=== PATIENT | female | born 1945 | race Caucasian/White ===

== ENCOUNTER → 2019-11-04 14:51 | Outpatient (CLI) | payer MEDICARE, OTHER, SELFPAY ==
--- NOTE | ~2019-11-04 | MM_ITS ---
EXAMINATION: MM screening fidel RT w yogesh HISTORY: Screening right mammogram, history of left mastectomy TECHNIQUE: Craniocaudal and mediolateral oblique 3-D tomosynthesis images were obtained and synthetic 2-D images were generated. CAD analysis was submitted and interpreted. COMPARISON: 10/15/2018, 10/01/2017, 09/27/2016, 09/24/2015 BREAST PARENCHYMAL COMPOSITION: There are scattered areas of fibroglandular density. FINDINGS: There is no evidence of suspicious mass, calcification, or architectural distortion to sugg est malignancy in either breast. There has been no suspicious interval change. IMPRESSION: 1. No mammographic evidence of malignancy. 2. Recommend routine screening mammography in one year. BI-RADS Category 1: Negative Reviewed, dictated and finalized at location A.
== END ==
PROVIDERS: PCP Family Medicine; Visit Provider Internal Medicine
DX: Z12.31 Encounter for screening mammogram for malignant neoplasm of breast (principal)
CPT/HCPCS: 77063; 77067

== ENCOUNTER 2020-01-20 22:04 | Emergency (ER) | payer MEDICARE, OTHER, SELFPAY ==
[2020-01-20 22:04] VITALS: BP 167/92; PULSE 72; RESP 18; TEMP 36.2; O2SAT 97
--- NOTE | 2020-01-21 00:03 | ED.WOUNDLAC ---
HPI - Wound/Laceration General Chief Complaint: Wound/Laceration Stated Complaint: Finger Lac Time Seen by Provider: 01/20/20 23:58 History of Present Illness HPI narrative: Patient presents with her for finger laceration. She was sewing and using her rotary peel oven tender, to make facemasks. She is already made 700 of them. She cut her index finger of the left hand. There was still bleeding here. Her tetanus shot was in May. She says the pain is 5 out of 10. She is right-handed. She has not been sick recently. Related Data Home Medications Medication Instructions Recorded Confirmed alendronate 70 mg tablet 70 mg PO WEEKLY 10/14/19 aspirin 81 mg tablet,delayed 81 mg PO DAILY 10/14/19 release atorvastatin 20 mg tablet 20 mg PO DAILY 10/14/19 biotin 1 mg capsule 1 mg PO DAILY 10/14/19 calcium carbonate 600 mg (1,500 cap PO 10/14/19 mg)-vitamin D3 500 unit capsule carvedilol 3.125 mg tablet 3.125 mg PO Q12H 10/14/19 cetirizine 10 mg capsule PO 10/14/19 cholecalciferol (vitamin D3) 50 2,000 unit PO DAILY 10/14/19 mcg (2,000 unit) tablet coenzyme [id number] E 100 mg-100 cap PO 10/14/19 unit capsule garlic 1,000 mg capsule 1,000 mg PO DAILY 10/14/19 glucosamine sulfate 500 mg tablet 500 mg PO BID 10/14/19 levothyroxine 75 mcg tablet 75 mcg PO DAILY 10/14/19 multivitamin 1 tablet PO DAILY 10/14/19 omega-3 fatty acids-fish oil 360 1 cap PO DAILY 10/14/19 mg-1,200 mg capsule omeprazole 20 mg capsule,delayed 20 mg PO DAILY 10/14/19 release Allergies Allergy/AdvReac Type Severity Reaction Status Date / Time No Known Allergies Allergy Unverified 01/20/20 23:12 Review of Systems Review of Systems: Narrative: CONSTITUTIONAL: Denies fever, chills, or sweats. EYES: Denies visual changes, redness, or discharge. ENT: Denies rhinorrhea, congestion, sore throat, or otalgia. CARDIOVASCULAR: Denies chest pain, palpitations, or edema. RESPIRATORY: Denies cough or dyspnea. GASTROINTESTINAL: Denies abdominal pain, nausea, vomiting, or diarrhea. GENITOURINARY: Denies dysuria or hematuria. SKIN: Denies rash or itching. MUSCULOSKELETAL: Denies back pain, joint pain, or myalgia. NEUROLOGIC: Denies headache, numbness, or weakness. PSYCHIATRIC: Denies anxiety or depression. All systems reviewed & are unremarkable except as noted in HPI and below PMFSH Past Medical History Medical History Breast cancer Heart disease Stent Osteopenia Family History Family History Sibling Carcinoma of colon Patient's brother is Other Family history of congenital heart disease Family history of malignant neoplasm Social History Social History Smoking status: Never smoker Alcohol intake: never Additional living arrangements comments: Spouse Gender identity (if verbalized by the patient): Female Exam Narrative: Exam Narrative: GENERAL: Well-appearing, well-nourished, and in no acute distress. HEAD: Normocephalic, atraumatic. EYES: PERRLA and EOMI. ENT: Nares clear, no rhinorrhea or epistaxis. Mucous membranes moist. NECK: Supple. CHEST: Clear to auscultation. No respiratory distress. HEART: Regular rate and rhythm. No murmur heard. Normal peripheral pulses. ABDOMEN: Soft, nontender, nondistended, normal active bowel sounds. EXTREMITIES: Normal range of motion. No edema. Laceration on the left index finger. SKIN: Warm, dry, no rash. NEURO: No focal deficits. Alert and oriented x3. PSYCH: Normal mood and affect. Course Vital Signs Vital signs: Vital Signs Temperature 97.1 F L 01/20/20 22:04 Pulse Rate 72 01/20/20 22:04 Respiratory Rate 18 01/20/20 22:04 Blood Pressure 167/92 H 01/20/20 22:04 Pulse Oximetry 97 01/20/20 22:04 Temperature 97.1 F L 01/20/20 22:04 Pulse Rate 72 01/20/20 22
[2020-01-21 01:01] VITALS: BP 158/83; PULSE 73; RESP 16; O2SAT 100
== END 2020-01-21 01:02 | disposition home or self-care (01) ==
PROVIDERS: Emergency Provider Emergency Medicine; PCP Family Medicine
DX: S61.211A Laceration without foreign body of left index finger without damage to nail, initial encounter (principal); Z85.3 Personal history of malignant neoplasm of breast; W26.8XXA Contact with other sharp object(s), not elsewhere classified, initial encounter
CPT/HCPCS: 12001; 99283; A9270

== ENCOUNTER → 2020-04-27 11:34 | Outpatient (CLI) | payer MEDICARE, OTHER, SELFPAY ==
--- NOTE | ~2020-04-27 | US_ITS ---
EXAMINATION: US thyroid DATE: 04/27/2020 11:54 INDICATION: Hypothyroidism. Thyroid nodules. TECHNIQUE: Multiple ultrasound images of the thyroid were obtained. COMPARISON: 12/10/2012 FINDINGS: The right thyroid lobe measures 6.0 x 2.1 x 2.0 cm. The left thyroid lobe measures 3.7 x 1.5 x 1.4 c m. Bilateral thyroid nodules. No significant interval change accounting for differences in technique in a smooth margined peripherally calcified 1.4 cm nodule at the inferior right thyroid lobe with sh adowing posterior to the anterior rim precluding assessment for solid versus cystic composition. Unch anged 1.6 cm wider than tall solid hypoechoic nodule with smooth margins and echogenic foci (TI-RADS 5, highly suspicious , FNA if >=1.0 cm, annual followup is >0.5 cm). There are several additional sub centimeter right thyroid nodules with relatively similar appearance although some appear more anechoi c and are likely cystic. Posterior comet tail artifact is suggested at a few of the echogenic foci wh ich can be seen with inspissated colloid. 7 mm wider than tall solid hypoechoic nodule with smooth ma rgins and without echogenic foci (TI-RADS 4, moderately suspicious , FNA if >=1.5 cm, annual followup is >1 cm). There are 3 anechoic cystic nodules with smooth margins in the left thyroid lobe (TI-RADS 1, benign, no FNA recommended). The largest measuring up to 1.5 cm. IMPRESSION: 1. Multinodular goiter. The largest 1.6 cm TI RADS 5 nodule in the right thyroid meets consensus crit eria for ultrasound-guided biopsy however has not changed in size since 2012 and could consider eithe r ultrasound guided biopsy or continued follow-up. Reviewed, dictated and finalized at location B. IMPRESSION: 1. Multinodular goiter. The largest 1.6 cm TI RADS 5 nodule in the right thyroi d meets consensus criteria for ultrasound-guided biopsy however has not changed in size since 2012 and could consider either ultrasound guided biopsy or valentino nued follow-up.
== END ==
PROVIDERS: PCP Family Medicine; Visit Provider Physician Assistant
DX: E03.9 Hypothyroidism, unspecified (principal); E04.2 Nontoxic multinodular goiter
CPT/HCPCS: 76536

== ENCOUNTER 2020-05-25 12:12 | Outpatient (CLI) | payer MEDICARE, OTHER, SELFPAY ==
--- NOTE | ~2020-05-25 | US_ITS ---
EXAMINATION: US abdomen complete EXAM DATE: 05/25/2020 12:52 INDICATION: Abdominal pain, nausea. TECHNIQUE: Multiple grayscale and Doppler images of the complete abdomen were obtained (by a technolo gist who performed the scan) and subsequently reviewed. There is no prior study for comparison. FINDINGS: The abdominal aorta is normal in caliber. Visualized portion IVC is patent. The pancreatic head a nd body are normal in appearance. The pancreatic tail is not visualized. The liver has normal echogenicity and contour. There are no focal liver lesions identified. There is no evidence of intrahepatic biliary duct dilation. Portal venous flow was seen in the hepatopedal , normal direction and has normal Doppler waveform. Common bile duct measures 3-4 mm, which is normal. The gallbladder wall is normal in thickness, with expected amount of distention. No sonographic evidence of pericholecystic fluid. There is no cholel ithiases. Technologist performing exam reports patient did not demonstrate sonographic Friend's sign. Please note that this sign is less reliable in patients who have received pain medication. Right kidney: There is normal contour and echogenicity. It measures 10.8 x 4.3 x 4.8 centimeters. There are no focal renal lesions identified. There is no hydronephrosis. Left kidney: There is normal contour and echogenicity. It measures 11.2 x 4.4 x 4.1 centimeters. T here are no focal renal lesions identified. There is no hydronephrosis. The spleen measures 8.6 centimeters and is morphologically normal. IMPRESSION: 1. Unremarkable complete abdominal ultrasound exam. Reviewed, dictated and finalized at location A.
[2020-05-25 13:15] LABS: Basophils Percent Auto 0.2 % (0.2-1.2); Eosinophils Absolute Auto 0.1 K/mm3 (0-0.3); Eosinophils Percent Auto 0.8 % (0-4.4); Hematocrit 42.4 % (37.0-47.0); Hemoglobin 14.3 g/dL (12.0-15.0); Immature Granulocyte Absolute 0.02 K/mm3 (0.00-0.031); Immature Granulocyte Percent A 0.2 % (0-0.5); Lymphocytes Absolute Auto 2.51 K/mm3 (0.9-3.2); Lymphocytes Percent Auto 24.6 % (18.3-44.2); Mean Corpuscular HGB Conc 33.7 g/dl (32-36); Mean Corpuscular Hemoglobin 30.5 pg (26-34); Mean Corpuscular Volume 90.4 fl (80-100); Mean Platelet Volume 9.4 fl (7.4-10.4); Monocytes Absolute Auto 0.5 K/mm3 (0.1-0.6); Monocytes Percent Auto 4.8 % (2.6-8.5); Neutrophils Absolute Auto 7.1 K/mm3 (1.3-6.7); Neutrophils Percent Auto 69.4 % (45.5-73.1); Platelet Count Result 269 k/mm3 (150-375); Red Blood Count 4.69 M/mm3 (4.2-5.4); Red Cell Distribution Width 12.2 % (11.5-14.5); White Blood Count 10.2 K/mm3 (4.5-10.0)
[2020-05-25 13:25] LABS: Alanine Aminotransferase 38 U/L (4-35); Albumin Level 4.3 g/dL (3.5-5.1); Alkaline Phosphatase 83 U/L (38-126); Amylase 48 U/L (30-110); Anion Gap 7 mmol/L (8-16); Aspartate Amino Transferase 33 U/L (14-36); Bilirubin,Total 0.7 mg/dL (0.2-1.3); Blood Urea Nitrogen 13 mg/dL (7-17); Calcium 9.5 mg/dL (8.4-10.2); Carbon Dioxide 30 mmol/L (22-30); Chloride 100 mmol/L (98-107); Estimated Glomerular Filt Rate > 60; Glucose 113 mg/dL (65-105); Lipase 38 U/L (23-300); Potassium 5.4 mmol/L (3.4-5.0); Sodium 137 mmol/L (137-145)
== END 2020-05-25 12:13 | disposition home or self-care (01) ==
PROVIDERS: PCP Family Medicine; Visit Provider Family Medicine
DX: R10.13 Epigastric pain (principal); R19.7 Diarrhea, unspecified; R11.0 Nausea; R10.11 Right upper quadrant pain
CPT/HCPCS: 36415; 76700; 80053; 82150; 83690; 85025

== ENCOUNTER → 2020-08-19 09:36 | Outpatient (CLI) | payer MEDICARE, OTHER, SELFPAY ==
--- NOTE | ~2020-08-19 | MR_ITS ---
EXAMINATION: MR ankle LT wo con DATE: 08/19/2020 10:32 INDICATION: Left ankle and hindfoot pain. TECHNIQUE: Magnetic resonance imaging (MRI) of the left ankle was performed without intravenous contr ast. Sequences included sagittal, coronal, and axial proton-density weighted fast spin echo without a nd with fat saturation. COMPARISON: None. FINDINGS: Medial ankle ligaments: Deep and superficial deltoid ligaments as well as the spring ligament are normal. Lateral ankle ligaments: The anterior and posterior inferior tibiofibular ligaments are normal. The anterior talofibular, calc aneofibular and posterior talofibular ligaments are normal. Tendons: Achilles tendon is normal. The peroneus longus and brevis tendons are normal. The tibialis anterior a nd extensor hallucis longus and extensor digitorum longus tendons are normal. The tibialis posterior, flexor digitorum longus and flexor hallucis longus tendons are normal. Plantar fascia: Tiny erosion along a moderate-sized plantar calcaneal spur. There is mild thickening and mild increas ed signal of the proximal plantar aponeurosis along with mild edema in the underlying plantar fat pad consistent with mild acute on chronic plantar fasciitis. Bones/other: Bone alignment is normal. Mild polyarticular osteoarthritis at the tibiotalar joint and at several mack ints the midfoot. There is mild subarticular edema and cystic change at the medial cuneiform on its a rticulation with the navicula as well as at the lateral cuneiform along its articulation with the cub oid. Marrow signal is otherwise normal with no fracture, osteonecrosis or pathologic marrow replacing process. Nonspecific edema in the cephalad aspect of the uterus fat pad. Minimal edema without loss of normal fat signal at the sinus Tarsi. The cervical and interosseous talocalcaneal ligaments are no rmal. Fluid: No joint effusions, tenosynovitis or other abnormal fluid collections. IMPRESSION: 1. 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 2. Mild acute on chronic plantar fasciitis. Reviewed, dictated and finalized at location A. B[employer]ING [employer]W [employer]IEF IMPRESSION: 1. 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 2. Mild acute on chronic plantar fasciitis.
== END ==
PROVIDERS: Visit Provider Podiatrist Foot & Ankle Surgery
DX: S93.622A Sprain of tarsometatarsal ligament of left foot, initial encounter (principal); X58.XXXA Exposure to other specified factors, initial encounter; M19.072 Primary osteoarthritis, left ankle and foot
CPT/HCPCS: 73721

== ENCOUNTER → 2020-12-30 14:32 | Outpatient (CLI) | payer MEDICARE, OTHER, SELFPAY ==
--- NOTE | ~2020-12-30 | MM_ITS ---
EXAMINATION: MM screening fidel RT w yogesh HISTORY: Screening. Left mastectomy. TECHNIQUE: Craniocaudal and mediolateral oblique 3-D tomosynthesis images were obtained and synthetic 2-D images were generated. CAD analysis was submitted and interpreted. COMPARISON: Comparison to multiple prior studies sequentially, with oldest reviewed study dated 09/24. BREAST PARENCHYMAL COMPOSITION: There are scattered areas of fibroglandular density. FINDINGS: Developing asymmetry in the upper central aspect of the right breast. There are no suspicio us calcifications or architectural distortion. IMPRESSION: 1. Developing right breast asymmetry. 2. Additional mammographic views and possible breast ultrasound are recommended. BI-RADS Category 0: Incomplete: Needs additional imaging evaluation. Reviewed, dictated and finalized at location A. IMPRESSION: 1. Developing right breast asymmetry. 2. Additional mammographic views and possible breast ultrasound are recommended . BI-RADS Category 0: Incomplete: Needs additional imaging evaluation.
== END ==
PROVIDERS: PCP Family Medicine; Visit Provider Family Medicine
DX: Z12.31 Encounter for screening mammogram for malignant neoplasm of breast (principal); R92.8 Other abnormal and inconclusive findings on diagnostic imaging of breast
CPT/HCPCS: 77063; 77067

== ENCOUNTER → 2021-01-25 08:30 | Outpatient (CLI) | payer MEDICARE, OTHER, SELFPAY ==
--- NOTE | ~2021-01-25 | MMUS_ITS ---
EXAMINATION: MM diagnostic mammo unilat RT, US breast RT limited HISTORY: Follow-up right breast asymmetry TECHNIQUE: Additional 3-D tomosynthesis images of the right breast were performed and synthetic 2-D i mages were generated. CAD analysis was submitted and interpreted. High resolution Limited right breas t ultrasound was performed. COMPARISON: 12/30/2020 BREAST PARENCHYMAL COMPOSITION: Breast composed of scattered areas of fibroglandular density. FINDINGS: MAMMOGRAPHIC FINDINGS: There are no suspicious masses, calcifications or architectural distortion in the right breast to sug gest malignancy. ULTRASOUND: Limited right breast ultrasound: Normal heterogeneous echotexture without focal solid or cystic mass. IMPRESSION: 1. No mammographic or sonographic evidence for malignancy in the right breast. 2. Routine yearly screening mammogram and regular clinical breast examination are recommended. BI-RADS Category 1: Negative Reviewed, dictated and finalized at location A. IMPRESSION: 1. No mammographic or sonographic evidence for malignancy in the right breast. 2. Routine yearly screening mammogram and regular clinical breast examination a re recommended. BI-RADS Category 1: Negative
== END ==
PROVIDERS: PCP Family Medicine; Visit Provider Physician Assistant
DX: R92.8 Other abnormal and inconclusive findings on diagnostic imaging of breast (principal)
CPT/HCPCS: 76642; 77065

== ENCOUNTER → 2021-03-01 17:59 | Outpatient (CLI) | payer MEDICARE, OTHER, SELFPAY ==
--- NOTE | ~2021-03-01 | DEXA_ITS ---
Bone Density Report Name: Jennifer Rivera Age: 75 Sex: Female Ethnicity: White Date of : 1945 Indication: osteopenia; monitoring treatment; height loss; inflammatory bowel disease; hysterectomy; Referring Provider: Yoly Triplett Study: Bone densitometry was performed. Exam Date: March 01, 2021 Accession number: [id number] Bone Density: Region BMD T-score Z-score Classification AP Spine (L1-L4) 0.941 -1.0 1.5 Normal Femoral Neck (Left) 0.689 -1.4 0.7 Osteopenia Total Hip (Left) 0.840 -0.8 1.0 Normal Femoral Neck (Right) 0.725 -1.1 1.0 Osteopenia Total Hip (Right) 0.896 -0.4 1.5 Normal Total Hip Mean 0.868 -0.6 1.3 Normal World Health Organization criteria for BMD impression classify patients as: Normal (T-score at or above -1.0), Osteopenia (T-score between -1.0 and -2.5), or Osteoporosis (T-score at or below -2.5). 10-year Fracture Risk: FRAX not reported because: Treated for osteoporosis Previous Exams: Region Exam Age BMD T-score BMD Change BMD Change Date g/cm2 vs Baseline vs Previous AP Spine(L1-L4) 03/01/2021 75 0.941 -1.0 0.093* 0.083* 07/17/2017 71 0.858 -1.7 0.010 -0.001 09/22/2014 68 0.859 -1.7 0.011 -0.004 09/20/2012 66 0.863 -1.7 0.015 0.015 09/20/2012 66 0.848 -1.8 Total Hip(Left) 03/01/2021 75 0.840 -0.8 -0.004 0.001 07/17/2017 71 0.839 -0.8 -0.005 0.019 09/22/2014 68 0.820 -1.0 -0.024 -0.024 09/20/2012 66 0.845 -0.8 Total Hip(Right) 03/01/2021 75 0.896 -0.4 0.012 0.047* 07/17/2017 71 0.849 -0.8 -0.035* -0.003 09/22/2014 68 0.852 -0.7 -0.033* -0.033* 09/20/2012 66 0.884 -0.5 *Denotes significance at 95% confidence level, LSC for AP Spine = 0.022 g/cm2, LSC for Total Hip = 0.027 g/cm2 Clinical Information Provided by Patient: Is being treated for osteoporosis Has used the following medications: Fosamax (i.e. alendronate), Vitamin D, Calcium Has the following medical conditions: Inflammatory bowel diseases, Hysterectomy Patient maximum height was 64 Menopause Age: 47 No regular weight bearing exercise Onset of menses at age 13 Number of children 3 Impression: The patient has low bone mass, based on the Left Femoral Neck T-score. No significant bone loss was observed.
== END ==
PROVIDERS: PCP Family Medicine; Visit Provider Physician Assistant
DX: Z78.0 Asymptomatic menopausal state (principal); M85.852 Other specified disorders of bone density and structure, left thigh; M85.851 Other specified disorders of bone density and structure, right thigh
CPT/HCPCS: 77080

== ENCOUNTER 2021-07-18 08:55 | Outpatient (CLI) | payer MEDICARE, OTHER, SELFPAY ==
--- NOTE | 2021-07-18 09:01 | ECG_ITS ---
Measurements Intervals [place] Rate: 56 P: 29 MS: 148 QRS: -13 QRSD: 140 T: -31 QT: 419 QTc: 407 Interpretive Statements SINUS BRADYCARDIA RIGHT BUNDLE BRANCH BLOCK BASELINE ARTIFACT- I, II, III, AVR, AVF ABNORMAL ECG Electronically Signed On 07-18-2021 9:27:16 MILLING MACHINE SET UP OPERATOR by Black Gamez D.O.
== END 2021-07-18 08:56 | disposition home or self-care (01) ==
LOC: ANHSURGERY 08:57
PROVIDERS: PCP Family Medicine; Visit Provider Orthopaedic Surgery
DX: E78.2 Mixed hyperlipidemia (principal); Z01.818 Encounter for other preprocedural examination; I45.10 Unspecified right bundle-branch block
CPT/HCPCS: 93005

== ENCOUNTER 2021-07-25 00:42 | Day surgery (SDC) | payer MEDICARE, OTHER, SELFPAY ==
[2021-07-11 15:30] VITALS: BMI 25.7
--- NOTE | 2021-07-11 15:41 | PC.NURSE ---
Report to the Outpatient Waiting Room, entrance under the green pavilion located off [facility], at time __10:30am on date __07/25/21 . OR Time: ___12:30pm . - You and your visitor will be asked a series of questions to screen for COVID 19 for your protection. - A mask is required within the hospital. - Only one visitor is allowed at this time. Patient visitors will be guided where to wait when not with patient. Preoperative COVID Testing Requirements: No COVID Test needed if: (proof is required; if not received patient will have Rapid Test prior to entry) - Patient has received COVID Vaccine at least 14 days prior to procedure date or - Patient has positive COVID test result within last 90 days of surgery date. COVID Test needed if above criteria is not met If not COVID vaccinated a COVID test must be conducted within 72 hours of surgery and patient is asked to isolate self from time of testing until procedure. You will go to the [facility] Testing Site for your COVID testing. The [facility] site is located at the corner of [address] [facility]. You will only be called if COVID results are positive and your surgeon may reschedule your elective surgery date. Patients may have clear liquids (water, carbonated beverages, clear teas, apple juice) until 3 hours prior to surgery with a maximum of 20 ounces. - No food from midnight until time of surgery - Infants may have breast milk until 4 hours before surgery, infant formula 6 hours prior to surgery. - Children will be allowed to drink immediately following surgery. If applicable, please bring a bottle or sippy cup to assist with drinking. Juice, water, soda, and popsicles are readily available. For infants on formula, please bring formula the day of surgery. Pacifiers are allowed. Take the following medications with a SIP of water the morning of surgery: carvedilol, _levothyroxine Medications to discontinue per physician all vitamins/supplements 3 days pre-op Date to take last dose____07/21/21 Please no make-up, nail cymro, hairspray, perfume, deodorant, or body powder the day of surgery. No jewelry (including any body piercings) or valuables the day of surgery, leave them at home. Please take a shower or bath the night before, or the morning of, surgery with an antibacterial soap. Wear comfortable, loose fitting clothing. Children are encouraged to wear pajamas. - Jewelry must be removed prior to entering the operating room. Rings and piercings that are not removed may be cut off. - The hospital will not accept responsibility for valuables. - Please leave all valuables, including medications, at home the day of surgery. If you are going home after surgery, a licensed commercial relief driver must drive you home. - NO public transportation without another adult. - We recommend that an adult stay with you for 24 hours following discharge. - We also recommend that you do not drive, make important decision, drink alcoholic beverages, or take any drugs that were not prescribed by your health care provider for at least 24 hours after your discharge time. For Pediatric surgeries, we recommend two adults accompany the child home (only one inside the building at this time). Follow any additional instructions given to you from your surgeon. Telephone instructions given to patient and asked if any additional questions and then verbalized understanding. Patient advised to call surgeon office or pre surgery nurse liaison [phone] if any additional questions.
[2021-07-25] VITALS (8 sets, daily range): BP systolic 140–152; BP diastolic 66–74; PULSE 50–77; RESP 15–21; TEMP 36.1–36.2; O2SAT 92–100
--- NOTE | ~2021-07-25 | XR_ITS ---
EXAMINATION: XR hand RT min 3V DATE: 07/25/2021 14:46 INDICATION: Right thumb arthroplasty. Postop. TECHNIQUE: 3 views of right hand were obtained. COMPARISON: Right hand radiographs 05/24/2021 FINDINGS: Bone alignment is normal. No fracture. Trapezium is absent. There is moderate osteoarthriti s of second carpometacarpal joint and mild osteoarthritis of first and second carpophalangeal joints. There is osteoarthritis of many of the interphalangeal joints, moderate at second and third distal i nterphalangeal joints. There is gas in the soft tissues, consistent with recent surgery. IMPRESSION: 1. Trapezium resection. 2. Polyarticular osteoarthritis. Reviewed, dictated and finalized at location A. [facility]
[2021-07-25] MEDS: LACTATED RINGERS 1,000 ML 30 ML IV CONT ×2 (11:10→14:22)
[2021-07-25] MEDS: ACETAMINOPHEN 500 MG TABLET 1000 MG PO (11:40)
[2021-07-25] MEDS: KETOROLAC 15 MG/ML VIAL (*BKC) IV PUSH (11:46)
--- NOTE | 2021-07-25 11:59 | WPDHPUPDATE1 ---
History and Physical Update Update Date/Time: 07/25/21 11:59 History and Physical has been reviewed, including an updated exam of the patient. There are NO changes in the patient's condition. Risks, benefits, and alternatives have been discussed and questions answered. Patient agrees to proceed with procedure.
--- NOTE | 2021-07-25 12:13 | WPDANESEPPF ---
Anes - Initial Pre Proc Eval Procedure: Operation Date: 07/25/21 12:30 Proposed Procedures p Right Thumb Carpal Metacarpal Arthroplasty - Mika Ruiz MD Date/Time: 07/25/21 12:13 Surgeon: Mika Ruiz MD Pre Op Diagnosis: right thumb CMC arthritis Patient Data Age: 75 Gender: F Height: 1.63 m Weight: 68 kg Allergies Allergy/AdvReac Type Severity Reaction Status Date / Time No Known Allergies Allergy Unverified 07/25/21 10:44 Home Medications Medication Instructions Recorded Confirmed Type aspirin 81 mg tablet,delayed 81 mg PO DAILY 10/14/19 07/25/21 History release biotin 1 mg capsule 1 mg PO DAILY 10/14/19 07/25/21 History calcium carbonate 600 mg-vitamin 1 cap PO BID 10/14/19 07/25/21 History D3 12.5 mcg (500 unit) capsule cetirizine 10 mg capsule 10 mg PO DAILY 10/14/19 07/25/21 History coenzyme [id number] E 100 mg-100 1 cap PO DAILY 10/14/19 07/25/21 History unit capsule garlic 1,000 mg capsule 1,000 mg PO DAILY 10/14/19 07/25/21 History glucosamine sulfate 500 mg tablet 500 mg PO DAILY 10/14/19 07/25/21 History multivitamin 1 tablet PO DAILY 10/14/19 07/25/21 History omega-3 fatty acids-fish oil 360 1 cap PO BID 10/14/19 07/25/21 History mg-1,200 mg capsule omeprazole 20 mg capsule,delayed 20 mg PO DAILY #90 cap 02/09/20 07/25/21 Rx release lactobacillus combination no.9 4 4,000 mmu cells PO DAILY 03/25/20 07/25/21 History billion cell capsule carvedilol 3.125 mg tablet 3.125 mg PO Q12H #180 tablet 08/30/20 07/25/21 Rx alendronate 70 mg tablet 70 mg PO WEEKLY #14 tablet 01/03/21 07/25/21 Rx atorvastatin 20 mg tablet 20 mg PO DAILY #90 tablet 05/30/21 07/25/21 Rx cholecalciferol (vitamin D3) 25 mcg PO DAILY 07/11/21 07/25/21 History levothyroxine 50 mcg PO QAM 07/11/21 07/25/21 History Patient hx anesthesia problems: none Family hx anesthesia problems: none Results Review: All pre-operative results and documents have been reviewed as part of the pre-operative evaluation. [facility] Past Medical History Medical History Arthritis of carpometacarpal (CMC) joint of right thumb BMI 28.0-28.9,adult Breast cancer CAD (coronary artery disease) Coronary stent patent GERD (gastroesophageal reflux disease) Heart disease Stent Hypothyroidism (acquired) Mixed hyperlipidemia Osteopenia Vitamin D deficiency Surgical History Surgical History H/O hand surgery H/O left mastectomy History of breast augmentation Family History Family History Sibling Carcinoma of colon Patient's brother is Other Family history of congenital heart disease Family history of malignant neoplasm Social History Social History Social History: Smoking status: Never smoker Second hand tobacco smoke exposure: No Alcohol intake: never Substance use: never Substance use type: does not use Living arrangements: with family Additional living arrangements comments: HUSB Gender identity (if verbalized by the patient): Female Spiritual care concerns: No Anes - Eval Final PreProcedure Day of Procedure 07/25/21 12:13 Patient weight: overweight Heart: regular rate and rhythm Lungs: clear to auscultation and normal air movement Airway: Mallampati scale class II Neurological: alert and oriented Last oral intake: >/= 8 hours ASA classification: III Emergent: no Anesthetic plan: proceed Anesthesia type and monitoring: general LMA and standard monitoring Results Review: All pre-operative results and documents have been reviewed as part of the pre-operative evaluation. Informed Consent: The patient's anesthetic plan and its attendant risks and benefits were discussed with the patient/family/POA. Questions were solicited and answers provide
--- NOTE | 2021-07-25 12:35 | WPDANESPNB ---
Anes - Peripheral Nerve Block Date/Time: 07/25/21 12:35 I have discussed with the patient/family/POA the placement of a peripheral nerve block for post-operative pain management, including associated risks, benefits, complications, and side effects. Alternative methods of post-operative analgesia were detailed. Questions were solicited and answers provided to the satisfaction of the patient/family/POA. Time-Out: A pre-procedural Time-Out was completed immediately before starting the procedure and confirmed: Patient Identification, Site, Procedure, Patient Position and the Availability of Requisite Equipment. Clinical Indications: Acute post-operative pain management requested by the operative surgeon. Nerve Block Insertion Note Anes-nerve block: supraclavicular right Patient position: supine Skin prep: chlorhexidine Needle: 22 gauge, stimulating, insulated echogenic needle. Needle length: 50 mm Technique: ultrasound Injectate: bupivacaine 0.5% with epi 5 mcg/ml (30cc- no epi) Observations: tolerated well Complications: none Procedure start time:: 1230 Procedure end time:: 1234
[2021-07-25] MEDS: ceFAZolin 2 GM/D5W 50 ML 2 GM/50 ML BAG IVPB (12:44)
--- NOTE | 2021-07-25 14:32 | W.PM.PROC2 ---
Procedure Note - Detailed Date of Procedure 07/25/21 Pre-op Diagnosis right thumb CMC arthritis Post-op Diagnosis same Procedure Performed Right thumb CMC suspension arthroplasty Surgeon Mika Ruiz MD Senior [employer] Billing Specialist Indu Velásquez Anesthesia general and regional Description of Procedure The patient was identified proper site identified. In the preop holding area the anesthesia team performed a right upper extremity block. She was then taken to the operating room transferred to the OR table placing her supine taking care to pad the torso and extremities. After general anesthetic induction and intubation, a nonsterile tourniquet was placed high on the right arm. The right upper extremity was prepped and draped in usual sterile fashion. Extremity was exsanguinated and tourniquet was inflated to 200 mmHg remaining up for approximately 69 minutes. A longitudinal incision was made over the FCR tendon curving radially at the base of the thenar musculature. Subcutaneous tissue bluntly dissected protecting neurovascular structures. A slip of the APL which inserted into the thenar musculature was released and marked for later repair. The thenar musculature was elevated up off of the carpus and the trapezium identified. While protecting the FCR, a trapeziectomy was performed. The a ulnar-sided distally-based 8 cm slip of FCR was then developed hand used to create a sling weaving the tendon slip between the FCR tendon and the APL tendon securing it to itself with 3-0 Ethibond suture. The EPL tendon was advanced on itself and also secured with 3-0 Ethibond suture seating the sling in the trapeziectomy site. This allowed the thumb to sit very nicely in a position of function. The EPB tendon was then reefed also with 3-0 Ethibond taking up the slack in that structure. The wound was irrigated with sterile antibiotic solution. The wrist capsule and thenar musculature were tacked back down with 4-0 Monocryl. The slip of the EPL was reattached to the thenar musculature with 3-0 Ethibond. Skin reapproximated with 4-0 Monocryl interrupted and 4-0 Prolene running subcuticular stitch. Steri-Strips were applied. Sterile dressings applied and the tourniquet was released. Well-padded thumb spica splint was fashioned. The patient tolerated procedure well . She was awakened extubated and taken to recovery area in stable condition. There were no known intraoperative complications. Estimated blood loss was negligible. Perioperative antibiotics were administered. Estimated Blood Loss -5.0 Tourniquet Time 69 Drains No Packing No Pathology none sent Complications No immediate complications Condition stable Disposition PACU
== END 2021-07-25 16:35 | disposition home or self-care (01) ==
PROVIDERS: PCP Family Medicine; Visit Provider Orthopaedic Surgery
PROC: (CPT 25447; principal; 2021-07-25 12:30)
DX: M18.11 Unilateral primary osteoarthritis of first carpometacarpal joint, right hand (principal); G89.18 Other acute postprocedural pain; Z79.82 Long term (current) use of aspirin; E03.9 Hypothyroidism, unspecified; I25.10 Atherosclerotic heart disease of native coronary artery without angina pectoris; Z95.5 Presence of coronary angioplasty implant and graft; K21.9 Gastro-esophageal reflux disease without esophagitis; E55.9 Vitamin D deficiency, unspecified; E78.2 Mixed hyperlipidemia
CPT/HCPCS: 25447; 64415; 73130; A9270; J0690; J1100; J1885; J2370; J2405; J2704; J7120

== ENCOUNTER 2021-09-07 13:30 | Outpatient (RCR) | payer MEDICARE, OTHER, SELFPAY ==
--- NOTE | 2021-08-15 11:32 | OTOPEVAL ---
OCCUPATIONAL THERAPY INITIAL EVALUATION REPORT 08/15/21 Thank you for referring Jennifer Rivera to [facility].? The patient is scheduled to be seen for therapy? 1x/week for 4 weeks. Please review, sign, date and return this plan of care DUSTIN. I agree with and certify that the following plan of care is medically necessary. Referring Physician Date Referring Provider: Mika Ruiz MD *OT Outpatient Evaluation Start: 08/15/21 10:26 Outpatient Past Medical History Past Medical History Source of Past Medical History Recalled from Previous Visit, Confirmed with Patient/Family Neurological History Hx Neurological Disorders No Significant History Cardiovascular History Hx Coronary Stent Yes: 2015 1 STENT, ANGIOPLASTY . DR PAGE Hx Hypercholesterolemia Yes Hx Hypertension Yes Hx Myocardial Infarction Yes: 2015 Respiratory History Hx Respiratory Disorders No Significant History Gastrointestinal History Hx Appendectomy Yes Hx Gastroesophageal Reflux Disease Yes Genitourinary History Hx Genitourinary Disorders No Significant History Musculoskeletal History Hx Arthritis Yes: RT THUMB CMC ARTHRITIS Hx Orthopedic Surgery Yes: LT THUMB SURGERY Hematological History Hx Hematological Disorders No Significant History Endocrine History Hx Hypothyroidism Yes HEENT History Hx Cataracts Yes: BILAT IMPLANTS Integumentary History Hx Skin Disorders No Significant History Reproductive History Hx Other Reproductive Disorders Yes: BREAST IMPLANT LT BREAST Psychosocial History Hx Psychiatric Disorders No Significant History Pain History History of Any Previous or Ongoing No Significant History Instance of Pain Anesthesia History Hx Post-Op Nausea/Vomiting Yes: HX N/V Hx Other Anesthesia Reactions Yes: HX HYPOTENSION AFTER ANESTHESIA Other History Hx Cancer Yes: BREAST CA Hx Chemotherapy Yes Hx Implanted Device Yes: LT BREAST IMPLANT Evaluation Information Problem Diagnosis Right thumb CMC arthroplasty Onset 07/25/21 Subjective Information Patient reports some residual Query Text:As Reported By Patient/ soreness, numbness, and pain Family in the right hand/thumb. She has returned to being independent with ADLs (only wearing sweat pants right now due to being unable to do zippers and buttons). at home helping with cooking, cleaning, and laundry at this
--- NOTE | 2021-09-07 14:40 | OTOPEVAL ---
OCCUPATIONAL THERAPY RE-EVALUATION AND DISCHARGE SUMMARY 09/07/21 OT re-evaluation completed today, 6 weeks following CMC arthroplasty. Patient has returned to functional ROM of the right wrist and thumb. Today she was instructed in balance weigher/pinch strengthening and is independent with all materials. No further skilled OT indicated at this time. Thank you for referring Jennifer Rivera to [facility].? Please review, sign, date and return this plan of care DUSTIN. I agree with and certify that the following plan of care is medically necessary. Referring Physician Date Referring Provider: Mika Ruiz MD *OT Outpatient Re-Evaluation Start: 08/15/21 10:26 Problem Diagnosis Right thumb CMC arthroplasty Onset 07/25/21 Subjective Information Patient states she has Query Text:As Reported By Patient/ returned to near normal Family functioning with her right hand. She is now able to do buttons and zippers, cook, clean, and do laundry. She reports it's difficult to open jars. Pain Assessment Timing of Pain Assessment Timing of Pain Assessment Pre-Treatment Self Report Self Report Pain Level 0 Pain Score Pain Score 0: Self Report Upper Extremity Range of Motion Wrist Range of Motion Right Wrist Flexion - Active 55 Wrist Extension - Active 55 Wrist Radial Deviation - Active 10 Wrist Ulnar Deviation - Active 30 Wrist Range of Motion Comments Wrist flexion improved from 55 * Wrist extension improved 55* RD improved from 10* UD remained WNL at 30* Thumb Range of Motion Right Thumb MCP Flexion - Active 40 Thumb IP Flexion - Active 60 Thumb CMC Radial Abduction - Active 45 Thumb CMC Palmar Abduction - Active 45 Opposition to 2nd Digit Tip 0 Opposition to 3rd Digit Tip 0 Opposition to 4th Digit Tip 0 Opposition to 5th Digit Tip 0 Opposition to 5th Digit Base 0 Thumb Range of Motion Comments Thumb active ROM returned to functional limits. Hand Ship Officer/Pinch Strength Assessment Hand Left Ship Officer Strength (lbs) 65 Lateral Pinch Strength (lbs) 10.66 Palmar Pinch Strength (lbs) 11 Tip Pinch Strength (lbs) 11.66 Right Ship Officer Strength (lbs) 37.33 Lateral Pinch Strength (lbs) 2.33 Palmar Pinch Strength (lbs) 3.66 Tip Pinch Strength (lbs) 2 Upper Extremity Exercise Wrist Exercise Right Other Wrist Exercises With 1# free weight, 3x10: - wrist flex - wrist ext
== END 2021-09-08 08:22 | disposition home or self-care (01) ==
LOC: ANHOT 13:30
PROVIDERS: PCP Family Medicine; Visit Provider Orthopaedic Surgery
DX: Z47.1 Aftercare following joint replacement surgery (principal); M18.11 Unilateral primary osteoarthritis of first carpometacarpal joint, right hand; Z98.890 Other specified postprocedural states
CPT/HCPCS: 97018; 97110; 97165

== ENCOUNTER → 2022-02-13 12:15 | Outpatient (CLI) | payer MEDICARE, OTHER, SELFPAY ==
--- NOTE | ~2022-02-13 | MM_ITS ---
EXAMINATION: MM screening fidel RT w yogesh HISTORY: Screening mammogram; status post left mastectomy in 1993 for breast cancer TECHNIQUE: Craniocaudal and mediolateral oblique 3-D tomosynthesis images were obtained and synthetic 2-D images were generated. CAD analysis was submitted and interpreted. COMPARISON: 01/25/2021 diagnostic right mammogram and limited right breast ultrasound 12/29/2020, 11/04/2019, 10/15/2018 right screening mammogram examinations BREAST PARENCHYMAL COMPOSITION: There are scattered areas of fibroglandular density. FINDINGS: There is no evidence of suspicious mass, calcification, or architectural distortion to sugg est malignancy in either breast. There has been no suspicious interval change. IMPRESSION: 1. No mammographic evidence of malignancy. 2. Recommend routine screening mammography in one year. BI-RADS Category 1: Negative Reviewed, dictated and finalized at location A.
== END ==
PROVIDERS: PCP Family Medicine; Visit Provider Nurse Practitioner Gerontology
DX: Z12.31 Encounter for screening mammogram for malignant neoplasm of breast (principal)
CPT/HCPCS: 77063; 77067

== ENCOUNTER 2023-04-16 14:03 | Inpatient (IN) | payer MEDICARE, OTHER, SELFPAY ==
[2023-04-16] VITALS (13 sets, daily range): BP systolic 115–175; BP diastolic 49–67; PULSE 35–62; RESP 16–20; TEMP 36.6–36.7; O2SAT 94–100; BMI 26.6
--- NOTE | ~2023-04-16 | XR_ITS ---
EXAMINATION: XR chest 1V portable INDICATION: New heart block TECHNIQUE: Portable AP chest at 1515 hours COMPARISON: 12/05/2015 FINDINGS: There are minimal interstitial opacities of the lung bases. No pleural effusion or pneumoth orax. The cardiomediastinal silhouette is stable. IMPRESSION: 1. Possible mild pulmonary edema. Reviewed, dictated and finalized at location A.
--- NOTE | ~2023-04-16 | XR_ITS ---
XR chest 1V portable 04/18/2023 13:48 Indication: Pacemaker insertion Procedure: AP portable chest Comparison: Comparison to multiple prior studies sequentially, with oldest reviewed study dated 09/23. Findings: Heart size normal. There are coarse bilateral interstitial infiltrates, likely chronic inte rstitial fibrosis. No focal air space disease, pulmonary edema, pleural effusion or suspected pneumot horax. Impression: 1: Coarse chronic bilateral interstitial infiltrates, likely pulmonary fibrosis. Mild edema less favo red. Reviewed, dictated and finalized at location B. Impression: 1: Coarse chronic bilateral interstitial infiltrates, likely pulmonary fibrosis . Mild edema less favored.
--- NOTE | ~2023-04-16 | XR_ITS ---
EXAMINATION: XR chest 2V DATE: 04/19/2023 08:17 INDICATION: Pacemaker insertion TECHNIQUE: AP and lateral views of the chest are obtained. COMPARISON: 04/18/2023 FINDINGS: Interstitial opacities of the lungs are again noted and unchanged. No pleural effusion or p neumothorax. The cardiomediastinal silhouette is normal. There is moderate thoracic spondylosis. A du al-lead cardiac pacemaker of the left chest wall ends with leads in expected locations. IMPRESSION: 1. Interstitial opacities of the lungs which could reflect pulmonary edema versus chronic interstitia l lung disease. Reviewed, dictated and finalized at location A. IMPRESSION: 1. Interstitial opacities of the lungs which could reflect pulmonary edema vers us chronic interstitial lung disease.
--- NOTE | 2023-04-16 14:12 | ECG_ITS ---
Measurements Intervals [place] Rate: 34 P: 53 IN: 141 QRS: -11 QRSD: 137 T: -14 QT: 518 QTc: 395 Interpretive Statements SINUS BRADYCARDIA WITH WHAT APPEARS TO BE LIKELY NONCONDUCTED PACS IN A BIGEMINAL PATTERN POSSIBLE LEFT ATRIAL ENLARGEMENT [-0.1mV P WAVE IN V1/V2] RIGHT BUNDLE BRANCH BLOCK [120+ ms QRS DURATION, UPRIGHT V1, 40+ ms S IN I/aVL/V4/V5/V6] COMPARED TO ECG 07/18/2021 09:11:40 NO SIGNIFICANT CHANGES Electronically Signed On 04-17-2023 11:11:47 CDT by Blayne Osorio M.D.
--- NOTE | 2023-04-16 15:19 | ED.ARRPALP ---
HPI - Arrhythmia/Palpitations General Chief Complaint: Arrhythmia/Palpitations Stated Complaint: heart problems Time Seen by Provider: 04/16/23 15:13 History of Present Illness HPI narrative: Patient is 77-year-old female with history of CAD status post PCI x1 here with lightheadedness and bradycardia. Patient states that for the last 1-2 weeks she has been having episodes of dizziness and lightheadedness. She notes that it feels like she may pass out. It has been intermittent in nature. She notes that over the last few days it seems to have worsened. On Sunday she did have about 24 hours of GI symptoms including diarrhea and vomiting. This seems to have worsened her symptoms. She did have an episode of shortness of breath when the symptoms began but otherwise she has had no CP shortness of breath or chest pain throughout this 2 week period. No current nausea or vomiting. No fever or chills. Today she went into her primary care doctor's office where she was noted to have a heart rate in the 30s and sent into the emergency department for evaluation. Patient does note that they have had low blood pressures throughout the weekend at home and her HR read as low on her monitor. Dr. 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 Related Data Home Medications Medication Instructions Recorded Confirmed aspirin 81 mg tablet,delayed 81 mg PO DAILY 10/14/19 04/16/23 release (Adult Low Dose Aspirin) biotin 1 mg capsule 1 mg PO DAILY 10/14/19 04/16/23 calcium carbonate 600 mg-vitamin 1 cap PO DAILY 10/14/19 04/16/23 D3 12.5 mcg (500 unit) capsule (Calcium 600 with Vitamin D3) cetirizine 10 mg capsule 10 mg PO DAILY 10/14/19 04/16/23 garlic 1,000 mg capsule 1,000 mg PO DAILY 10/14/19 04/16/23 multivitamin 2 tablet PO DAILY 10/14/19 04/16/23 lactobacillus combination no.9 4 4,000 mmu cells PO DAILY 03/25/20 04/16/23 billion cell capsule (Adult 50 Plus Probiotic) cholecalciferol (vitamin D3) 25 25 mcg PO DAILY 07/11/21 04/16/23 mcg (1,000 unit) capsule ascorbic acid 100 mg-elderberry 1 tablet PO DAILY 04/16/23 04/16/23 fruit 50 mg chewable tablet (Airborne (elderberry)) atorvastatin 20 mg tablet 20 mg PO QPM 04/16/23 04/16/23 coQ10 (ubiquinol) 200 mg capsule 400 mg PO DAILY 04/16/23 04/16/23 levothyroxine 50 mcg tablet See Rx Instructions .Route .COMPLEX 04/16/23 04/16/23 omega 1-aor-sss-fish oil 100 3 cap PO DAILY 04/16/23 04/16/23 mg-160 mg-1,000 mg capsule (Fish Oil) Allergies Allergy/AdvReac Type Severity Reaction Status Date / Time No Known Allergies Allergy Verified 04/16/23 12:58 Review of Systems Review of Systems: CONSTITUTIONAL: Denies fever, chills, or sweats. EYES: Denies visual changes, redness, or discharge. ENT: Denies rhinorrhea, congestion, sore throat, or otalgia. CARDIOVASCULAR: Denies chest pain or palpitations, Having light headedness. RESPIRATORY: Denies cough or dyspnea. GASTROINTESTINAL: Denies abdominal pain, nausea, vomiting, or diarrhea. GENITOURINARY: Denies dysuria or hematuria. SKIN: Denies rash or itching. MUSCULOSKELETAL: Denies back pain, joint pain, or myalgia. NEUROLOGIC: Denies headache, numbness, or weakness. [facility] Past Medical History Medical History (Updated 04/17/23 @ 10:40 by Anita Jimenez MD) BMI 28.0-28.9,adult Breast cancer Left breast CAD (coronary artery disease) STEMI November 2015 with normal echocardiogram at that time Gastritis GERD (gastroesophageal reflux disease) Hiatal hernia Hypothyroidism (acquired) Mixed hyperlipidemia Orthostasis Osteopenia Sinus bradycardia Vitamin D deficiency Surgical History Surgical History (Updated 04/17/23 @ 00:25 by Maggy Jeff DO) Arthritis of carpometacarpal (CMC) joint of right thumb Right thumb CMC arthroplasty July 25, 2021 H/O hand surgery H/O left mastectomy History of arthroplasty of finger of right hand (06/2021) Thumb Hi
[2023-04-16 15:21] LABS: Basophils Percent Auto 0.5 % (0.2-1.2); Eosinophils Absolute Auto 0.4 K/mm3 (0-0.3); Eosinophils Percent Auto 4.9 % (0-4.4); Hematocrit 44.1 % (37.0-47.0); Immature Granulocyte Absolute 0.02 K/mm3 (0.00-0.031); Immature Granulocyte Percent A 0.2 % (0-0.5); Lymphocytes Absolute Auto 3.43 K/mm3 (0.9-3.2); Lymphocytes Percent Auto 42.8 % (18.3-44.2); Mean Corpuscular HGB Conc 31.7 g/dl (32-36); Mean Corpuscular Hemoglobin 29.8 pg (26-34); Mean Corpuscular Volume 93.8 fl (80-100); Mean Platelet Volume 10.1 fl (7.4-10.4); Monocytes Absolute Auto 0.5 K/mm3 (0.1-0.6); Monocytes Percent Auto 5.9 % (2.6-8.5); Neutrophils Absolute Auto 3.7 K/mm3 (1.3-6.7); Neutrophils Percent Auto 45.7 % (45.5-73.1); Platelet Count Result 223 k/mm3 (150-375); Red Cell Distribution Width 12.8 % (11.5-14.5)
[2023-04-16 15:30] LABS: Alanine Aminotransferase 34 U/L (6-35); Albumin Level 4.7 g/dL (3.5-5.1); Alkaline Phosphatase 79 U/L (38-126); Anion Gap 8 mmol/L (8-16); Aspartate Amino Transferase 36 U/L (14-36); Bilirubin,Total 0.6 mg/dL (0.2-1.3); Blood Urea Nitrogen 15 mg/dL (7-17); Calcium 9.4 mg/dL (8.4-10.2); Carbon Dioxide 28 mmol/L (22-30); Chloride 103 mmol/L (98-107); Estimated CRCL calculation 44 ml/min; Estimated Glomerular Filt Rate > 60; Glucose 91 mg/dL (65-110); Lipase 58 U/L (23-300); Potassium 4.5 mmol/L (3.4-5.0); Sodium 139 mmol/L (137-145)
[2023-04-16 15:32] LABS: INR 0.9; Prothrombin Time 12.8 Seconds (11.1-14.7)
[2023-04-16 15:33] LABS: Partial Thromboplastin Time 25.2 SECONDS (22.3-36.8)
[2023-04-16 15:41] LABS: Troponin I < 0.012 ng/mL (0.000-0.034)
[2023-04-16 17:18] LABS: Magnesium 1.9 mg/dL (1.6-2.3)
[2023-04-16] MEDS: DOPamine 400 MG/D5W 250 ML 400 MG/250 ML BAG 7.13 MG IV CONT (17:33)
[2023-04-16 18:57] LABS: Troponin I < 0.012 ng/mL (0.000-0.034)
--- NOTE | 2023-04-16 20:45 | ADMGEN ---
This patient, Jennifer Rivera, was admitted to Intensive Care Unit-1 at 2037. Patient/family oriented to hospital policies and general routines including ID bracelet, bed and alarms, visiting hours, pain management, procedures, bathroom and other care routines, personal items, smoking policy, room service/diet, and visiting hours. Information on how to activate the Rapid Response Team has been discussed. Patient/Family are encouraged to report perceived risks to care and to ask questions if they do not understand what they are told or what they should do.
--- NOTE | 2023-04-16 20:49 | ADMGEN ---
2039 This patient, Jennifer Rivera, was admitted to Intensive Care Unit-1. Patient/family oriented to hospital policies and general routines including ID bracelet, bed and alarms, visiting hours, pain management, procedures, bathroom and other care routines, personal items, smoking policy, room service/diet, and visiting hours. Information on how to activate the Rapid Response Team has been discussed. Patient/Family are encouraged to report perceived risks to care and to ask questions if they do not understand what they are told or what they should do.
[2023-04-16] MEDS: DOPamine 400 MG/D5W 250 ML 400 MG/250 ML BAG 6.6 MG IV CONT (21:00)
--- NOTE | 2023-04-16 21:02 | PM.IMHP ---
H&P: HPI History of Present Illness Date/Time: 04/16/23 21:02 Chief Complaint: Low heart rate Narrative: 77-year-old female with a past medical history of coronary artery disease status post LAD stent 2016 and hypothyroidism who presented to the ER from primary care physician's office due to symptomatic bradycardia. The patient reports that for the last week she has been having intermittent episodes of feeling lightheaded. The 1st time happened when she went to get out of the car and walk. She was so lightheaded that she thought she may pass out. She also initially felt short of breath with this 1st incidence. She denies any true dizziness. She sat down for a few minutes and her symptoms improved. She does not remember having a recurrence of the symptoms that day. However she has had some mild recurrent episodes throughout. Then 3 days ago she had 24 hours of GI symptoms including diarrhea and vomiting. She did notice more episodes of lightheadedness after this. Since that time she has had good appetite and good fluid intake. She reports that she may feel little bit more tired than baseline but not markedly so. She denies any associated chest pain. She has not had a recurrence of the shortness of breath beyond her 1st day of symptoms. She has not noticed any palpitations. She has not had any recent changes in her cardiac medications and is only on low-dose Coreg 3.125 mg p.o. b.i.d. which she has been on for quite some time. She has been checking her blood pressures at home with her wrist blood pressure cuff. She notes that her blood pressures had been lower than normal with her systolic pressures in the 90-100 range. She reports that her heart rate has been reading low on her blood pressure monitor for several days but she did think much of this. Given her symptoms she had an outpatient appointment with her primary care physician who performed an EKG that demonstrated Mobitz type 2 and she was sent to the ER for evaluation. EKG in the ER demonstrated rate of 30 and appear to be consistent with sinus bradycardia. Patient was started dopamine infusion due to symptomatic bradycardia and admitted to the ICU. Her TSH in the ER was normal. Review of Systems Review of Systems: 12 systems were reviewed with pertinent positives and negatives per HPI. Except as documented in the HPI, all other systems were reviewed and are negative. She denies orthopnea, paroxysmal nocturnal dyspnea or lower extremity swelling. [facility] Past Medical History Medical History (Updated 04/17/23 @ 00:28 by Maggy Jeff DO) BMI 28.0-28.9,adult Breast cancer Left breast CAD (coronary artery disease) STEMI November 2015 with normal echocardiogram at that time Gastritis GERD (gastroesophageal reflux disease) Hiatal hernia Hypothyroidism (acquired) Mixed hyperlipidemia Osteopenia Vitamin D deficiency Surgical History Surgical History (Updated 04/17/23 @ 00:25 by Maggy Jeff DO) Arthritis of carpometacarpal (CMC) joint of right thumb Right thumb CMC arthroplasty July 25, 2021 H/O hand surgery H/O left mastectomy History of arthroplasty of finger of right hand (06/2021) Thumb History of breast augmentation With subsequent removal of the left breast implant 2018 after became deflated Presence of stent in LAD coronary artery (11/2015) Status post cataract extraction of both eyes with insertion of intraocular lens Family History Family History (Updated 04/17/23 @ 00:18 by Maggy Jeff DO) Sibling Carcinoma of colon Patient's brother is Sibling Sudden After a flight from [place]. PE versus [place] Social History Social History (Updated 04/17/23 @ 00:27 by Maggy Jeff DO) Social History: Patient reports that she has been since 1965. Her and her had 3 sons who are all alive and well. 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 After she completed that mack
[2023-04-16 23:16] LABS: Troponin I < 0.012 ng/mL (0.000-0.034)
[2023-04-17] VITALS (31 sets, daily range): BP systolic 85–132; BP diastolic 41–76; PULSE 34–73; RESP 12–25; TEMP 36.5–36.8; O2SAT 91–100
[2023-04-17] MEDS: PANTOPRAZOLE 40 MG TABLET PO (08:26)
[2023-04-17] MEDS: ASPIRIN 81 MG ENTERIC TABLET PO (08:26)
[2023-04-17] MEDS: OMEGA 3 POLYUNSAT FATTY ACIDS 1 GM CAP 3 GM PO (08:26)
[2023-04-17] MEDS: LORATADINE 10 MG TABLET PO (08:27)
--- NOTE | 2023-04-17 08:29 | PM.IMPN ---
Progress Note: A&P Assessment and Plan (1) Symptomatic bradycardia: Code(s): R00.1 - Bradycardia, unspecified Status: Acute Assessment and Plan: Patient presents to the ED with lightheadedness and found to have symptomatic bradycardia. HR into the 30's. She was on Coreg but this has been stopped. EKG showing sinus bradycardia with rate of 34 and Rt BBB. She has a biphasic T wave in Lead II but no obvious AVB. Dopamine started. HR improving. Cardiology consulted. Mildly hypoxic when sleeping - consider sleep apnea. Check apnea link. Check orthostatic vital signs. (2) Heart block AV second degree: Code(s): I44.1 - Atrioventricular block, second degree Status: Acute Assessment and Plan: Possible AVB? As above (3) Hypothyroidism (acquired): Code(s): E03.9 - Hypothyroidism, unspecified Status: Acute Assessment and Plan: TSH is normal. Contiue levothyroxine. (4) CAD (coronary artery disease): Code(s): I25.10 - Atherosclerotic heart disease of [place] coronary artery without angina pectoris Status: Acute Assessment and Plan: Patient has a hx of CAD with stent placement to the LAD in 2016. Continue ASA and Lipitor. (5) Mixed hyperlipidemia: Code(s): E78.2 - Mixed hyperlipidemia Status: Acute Assessment and Plan: LFTs normal. Continue Lipitor and fish oil. Plan DVT Prophylaxis - SCDs Code status - full Subjective Date/time seen: 04/17/23 08:29 Interval history: 77yo female with CAD, hypothyroidism and HLD here for bradycardia. She slept poorly. She has been feeling lightheaded and fatigue over the past week. No recent medication changes. No recent supplements. She did notice that her symptoms are worse with standing. No CP or SOB. History of coronary disease. No recent ischemic evaluation. Exam Narrative: AF 98.0 107/67 61 12 91% RA Gen - NARD; she felt lightheaded when sitting up in bed Chest - bibasilar inspiratory crackles CV - RRR S1/S2. HR low 60 range. 2/6 systolic murmur Rt USB. Tele showing sinus bradycardia but no obvious AVB Abd - Soft, NT/ND, Positive BS Ext - No pedal edema Psych - Nml mood and affect Skin - Warm and dry Objective Data Vital Signs Vital Signs: Vital Signs - 24 hr 04/16/23 15:01 04/16/23 15:10 04/16/23 15:35 Temperature 97.9 F Pulse Rate 35 L 40 L 54 L Respiratory Rate 18 16 Blood Pressure 175/59 H 157/61 H Pulse Oximetry 100 97 Oxygen Delivery Room Air Room Air 04/16/23 15:30 04/16/23 17:33 04/16/23 16:01 Temperature Pulse Rate 40 L 46 L 59 L Respiratory Rate 18 17 Blood Pressure 138/59 L 133/49 L 133/64 Pulse Oximetry 100 100 Oxygen Delivery 04/16/23 16:31 04/16/23 18:01 04/16/23 19:13 Temperature Pulse Rate 39 L 55 L 38 L Respiratory Rate 19 20 Blood Pressure 142/67 H 123/61 Pulse Oximetry 98 95 Oxygen Delivery 04/16/23 19:14 04/16/23 20:30 04/16/23 22:00 Temperature 97.8 F Pulse Rate 62 53 L 40 L Respiratory Rate 19 20 Blood Pressure 118/55 L 115/61 Pulse Oximetry 95 94 Oxygen Delivery 04/16/23 22:00 04/17/23 00:00 04/17/23 00:00 Temperature 98.0 F 98 F Pulse Rate 40 L 38 L 38 L Respiratory Rate 18 16 Blood Pressure 115/66 100/49 L Pulse Oximetry 94 96 Oxygen Delivery 04/16/23 21:00 04/17/23 00:00 04/17/23 00:30 Temperature Pulse Rate 40 L 38 L 39 L Respiratory Rate Blood Pressure 128/60 100/49 L Pulse Oximetry Oxygen Delivery 04/17/23 02:00 04/17/23 02:00 04/17/23 02:00 Temperature Pulse Rate 60 67 67 Respiratory Rate 18 Blood Pressure 115/62 115/62 Pulse Oximetry 93 Oxygen Delivery 04/17/23 05:22 04/17/23 04:00 04/17/23 04:00 Temperature 98.0 F Pulse Rate 58 L 64 64 Respiratory Rate 17 Blood Pressure 114/64 Pulse Oximetry 91 Oxygen Delivery 04/17/23 05:38 04/17/23 06:00 04/17/23 06:00 Temperature Pu
[2023-04-17] MEDS: CHOLECALCIFEROL 1,000 UNITS TABLET 1000 UNITS PO (08:38)
--- NOTE | 2023-04-17 08:45 | WPDCNINT ---
Assessment and Plan Assessment and plan (1) Symptomatic bradycardia: Code(s): R00.1 - Bradycardia, unspecified Status: Acute Assessment and Plan: Patient presented on 04/16/2023 with lightheadedness and shortness of breath. She visited her primary care doctor and her heart rate was in the 30s, patient was sent to the ER for further the workup. Patient does take Coreg 3.125 mg p.o. b.i.d. which she has been taking for a while. -according the records patient did have Mobitz type 2 block on her EKG at her PCP's office -will wean dopamine and monitor heart rate and blood pressures -cardiology has been consulted, awaiting recommendations (2) Hypothyroidism (acquired): Code(s): E03.9 - Hypothyroidism, unspecified Status: Acute Assessment and Plan: Continue levothyroxine (3) CAD (coronary artery disease): Code(s): I25.10 - Atherosclerotic heart disease of [place] coronary artery without angina pectoris Status: Acute Assessment and Plan: History of LAD stent and 2016, -continue aspirin and atorvastatin (4) Mixed hyperlipidemia: Code(s): E78.2 - Mixed hyperlipidemia Status: Acute Assessment and Plan: Continue statin as above Plan DVT prophylaxis: SCDs Stress ulcer prophylaxis: Not indicated Nutrition: NPO for now Code Status: Full code Critical Care Time Spent: 47 minutes Due to a high probability of clinically significant, life threatening deterioration, the patient required my highest level of preparedness to intervene emergently and I personally spent this critical care time directly and personally managing the patient. This critical care time included obtaining a history; examining the patient; pulse oximetry; ordering and review of studies; arranging urgent treatment with development of a management plan; evaluation of patient's response to treatment; frequent reassessment; and discussions with other providers. It was exclusive of separately billable procedures and treating other patients and teaching time. Please see Assessment and Plan section and the rest of the note for further information on patient assessment and treatment This dictation may have been done utilizing a voice recognition system. Attempts have been made to correct errors. However, there may be uncorrected grammatical, spelling, and recognitions errors present. Chemical Equipment Controller Consult Note Consult date: 04/17/23 Reason for consult: Symptomatic Bradyarrhythmia HPI: Jennifer Rivera is a 77 year old female with past medical history of coronary artery disease status post LAD stent in 2016, hypothyroidism, GERD, hyperlipidemia, vitamin-D deficiency, history of left breast cancer status post left mastectomy presented the ER from her primary care doctor's office on 04/16/2023 due to symptomatic bradycardia. According the records patient been having lightheadedness intermittently for approximately 1 week, she felt as though she would pass out. Patient also complained of shortness of breath during the episodes of lightheadedness. She denied any chest pain, nausea, vomiting, fevers, chills. On the day of admission patient went to her primary care doctor's office and was noted to have a heart rate in the 30s and was sent to the ER for further evaluation. Patient does take low-dose Coreg 3.125 mg p.o. b.i.d. which she has been on for quite some time. She has noted her blood pressures to be a is lower with systolics in the 90s to 100 range. She also noted that heart rate on the blood pressure monitor was low which she did not think much of it. EKG was consistent with sinus bradycardia, patient was started on dopamine infusion and admitted to the ICU for further management. Patient seen and examined this morning, remains on dopamine 2.5 mcg/kg/min. Heart rates have been in the 50s to 60s range. Hemodynamically stable, on room air with good O2 sats, adequate urine output, afebrile. Patient denies any chest p
--- NOTE | 2023-04-17 09:14 | PM.CNCAR ---
Assessment and Plan Assessment and plan (1) Sinus bradycardia: Code(s): R00.1 - Bradycardia, unspecified Status: Acute Assessment and Plan: Patient presents with sinus bradycardia. She does not have any AV block but she does have a right bundle-branch block. EKG suggests that she is actually having frequent nonconducted APCs and atrial bigeminy, resulting in bradycardia. Seems to have resolved overnight on dopamine. On a very tiny dose of carvedilol which has been held, last dose being yesterday morning. Unclear how much of her symptoms are due to bradycardia verses low blood pressures/orthostasis. --discontinue carvedilol --dopamine on hold --follow heart rate over the next 24 hours --no plans for pacemaker implant today. Will follow and see if pacemaker is indicated. Counseled patient and . --Echo (2) Orthostasis: Code(s): I95.1 - Orthostatic hypotension Status: Acute Assessment and Plan: Has had some low blood pressures and documented orthostasis this morning which may be contributing to her symptoms of lightheadedness. --resume diet --normal saline 1 L (3) CAD (coronary artery disease): Code(s): I25.10 - Atherosclerotic heart disease of [place] coronary artery without angina pectoris Status: Acute Assessment and Plan: History of Left anterior descending stent, stable, asymptomatic. --continue secondary prevention with aspirin and statin therapy. History of Present Illness History of Present Illness Consult date/time: 04/17/23 09:14 Reason For Visit: Bradycardia Narrative: Jennifer Rivera is a 77-year-old female whom we were asked to see at the request of Dr. Karla fritz for advice and opinion regarding her bradycardia, in consultation. She follows with Dr. Ashton for her history of CAD. She had ACS and Left anterior descending stent November 2015. She was last seen by Dr. Ashton on 02/08/2023 doing well. The patient presented to her PCP Marguerite TATE yesterday complaining of episodes of dizziness and lightheadedness for 1 week. The 1st occurred about a week ago when she was getting out of a car to go shopping and she had a set and rest; this was associated with SOB. She has had other intermittent episodes of lightheadedness primarily when sitting up or standing up which resolved after several seconds. No other shortness of breath and no chest discomfort. Previously she had no exertional intolerance, able to go up and downstairs a set of with no problems. She had nausea and vomiting 3 days ago, which resolved and she has been eating and drinking well. BP has been low. Her pulse was 56. Her EKG was interpreted as second-degree AV block by her PCP, heart rate 41 (EKG on my review shows sinus bradycardia rate 41, RBBB, probably some nonconducted APCs but not second-degree AV block), and she was referred to the emergency room. There her EKG showed sinus rhythm with a heart rate of 34 and probably nonconducted APCs in a pattern of bigeminy. (EKG personally reviewed) she was started on dopamine last night because of heart rate 30s times this morning her heart rate is in the 60s on dopamine 1.5 mics. In dopamine has been held now. She was noted to be orthostatic with a systolic blood pressure of 120 supine and 85 standing this morning. Right-handed, no history of clavicular fracture. Review of Systems Constitutional: Constitutional: Denies fever(s) Eyes: Eyes: Reports no additional eye complaints ENT: Denies epistaxis Cardiovascular: Cardiovascular: Denies chest pain, Denies pedal edema, Reports lightheadedness and Reports dyspnea (One episode of shortness of breath) Respiratory: Respiratory: Denies chest congestion, Reports dyspnea (1 episode) and Denies dyspnea on exertion (Previously had good exertional tolerance) Gastrointestinal: Gastrointestinal: Denies abdominal pain, Denies hematochezia and Reports vomiting Comments: Nausea vomiti
--- NOTE | 2023-04-17 09:42 | ECHO_ITS ---
Patient Info Name: Jennifer Rivera Age: 77 years : 1945 Gender: Female Ht: 64 in Wt: 155 lbs BSA: 1.80 m2 HR: 48 bpm BP: 109 / 62 mmHg Heart Rhythm: Sinus Rhythm, Bradycardia Technical Quality: Fair Exam Date: 04/17/2023 3:28 PM Exam Location: [facility] Pulmonary Exam Room: ICU1 Patient Status: Inpatient Admit Date: 04/16/2023 Staff Ordering Physician: Viridiana Mckeon MD Hearing Aid Consultant: Genet Avalos RDCS Attending Provider: Guido Velez MD Referring Physician: Linda LING; Exam Type: CA echo dop color flow w con Study Info Indications - NEW AFIB Complete two-dimensional, color flow and Doppler transthoracic echocardiogram is performed with contrast to opacify the left ventricle and to improve the deliniation of the left ventricle endocardial borders. Contrast/Agitated Saline Contrast/Ag. Saline: Definity Amount: 2.00 ml Administered By: Genet Avalos [facility] Existing IV Access: Yes IV Access Condition: patent with no signs of infiltration Summary 1. Normal left ventricular size and thickness with good contractility of all segments. Ejection fraction 55-60%. Grade 1 diastolic dysfunction is present. 2. Left atrial chamber dimension is moderately enlarged. 3. Aortic valve sclerosis with no stenosis. Trace aortic insufficiency. 4. There is mild tricuspid valve regurgitation. 5. Mild pulmonary hypertension, estimated pulmonary arterial systolic pressure is 42 mmHg. 6. Sinus rhythm and sinus bradycardia. Left Ventricle Left ventricular chamber dimension is normal. Left ventricular systolic function is normal, estimated at 55-60%. There is no increased left ventricular wall thickness. Left ventricular septal wall motion is normal. The left ventricular diastolic function is grade I diastolic dysfunction. Right Ventricle Right ventricular chamber dimension is normal. Right ventricular systolic function is normal. Left Atria Left atrial chamber dimension is moderately enlarged. Right Atria Right atrial chamber dimension is normal. Aortic Valve The aortic valve is trileaflet. There is mild aortic valve sclerosis. There is no aortic valve stenosis. There is trace aortic valve regurgitation. Pulmonic Valve The pulmonic valve is normal. There is no pulmonic valve stenosis. There is trace pulmonic regurgitation. Mitral Valve The mitral valve has normal leaflets. There is no mitral valve stenosis. There is trace mitral valve regurgitation. The mitral valve annulus is moderately calcified. Tricuspid Valve The tricuspid valve leaflets are normal. There is no significant tricuspid valve stenosis. There is mild tricuspid valve regurgitation. Mild pulmonary hypertension, estimated pulmonary arterial systolic pressure is 42 mmHg. Pericardium/Pleural The pericardium appears normal. There is no pericardial effusion. Inferior Vena Cava Normal inferior vena cava with >50% collapse upon inspiration consistent with Empty right atrial pressure, 10 mmHg. Aorta The aortic root size at the sinus of Valsalva is normal. The prox ascending aorta size is normal. Left Ventricular Outflow Tract Name Value Normal LVOT 2D LVOT Diameter 2.00 cm LVOT Doppler
[2023-04-17] MEDS: SODIUM CHLORIDE 0.9% IV 1,000 ML 100 ML IV CONT (10:20)
[2023-04-17] MEDS: PERFLUTREN LIPID MICROSPHERES 1.5 ML VIAL DILUTED TO 10 ML TOTAL VOLUME IV PUSH (16:00)
--- NOTE | 2023-04-17 16:21 | IVDEFINITY ---
Prior to administration of IV Definity the patient was educated on the risks and benefits of the imaging enhancing agent including potential adverse side effects. The patient verbalized understanding. Allergies were verified. No exclusion criteria were identified and at least one of the following inclusion criteria were met: 1) physician request, 2) patient technically difficult to image (per the [place] [employer]ocardi[employer] guidelines of two or more segments not discernable within the apical view), or 3) questionable left ventricular function. ?
[2023-04-17] MEDS: ATORVASTATIN 20 MG TABLET PO (16:59)
[2023-04-18] VITALS (18 sets, daily range): BP systolic 86–128; BP diastolic 34–71; PULSE 39–79; RESP 14–22; TEMP 36.4–36.9; O2SAT 90–99
--- NOTE | 2023-04-18 | ECHOL_ITS ---
Patient Info Name: Jenniefr Rivera Age: 77 years : 1945 Gender: Female Ht: 64 in Wt: 156 lbs BSA: 1.80 m2 HR: 75 bpm BP: 107 / 71 mmHg Heart Rhythm: Sinus Rhythm Technical Quality: Fair Exam Date: 04/18/2023 3:00 PM [facility]: ICU1 Patient Status: Inpatient Admit Date: 04/16/2023 Staff Ordering Physician: Viridiana Mckeon MD Flask Pusher: Genet Avalos RDCS Attending Provider: Guido Velez MD Referring Physician: Linda LING; Exam Type: CA echo limited Study Info Indications - CHEST PAIN S/P PACER INSERTION R/O PERICARDIAL EFFUSION Limited two-dimensional transthoracic echocardiogram is performed. Summary 1. Normal left ventricular size and thickness with good contractility of all segments. Ejection fraction is 60-65%. 2. Pacemaker seen in the right ventricle, appears to be in the appropriate apical position. 3. No pericardial effusion. 4. Somewhat technically difficult study is the patient was imaged supine due to her recent procedure. Left Ventricle Left ventricular chamber dimension is normal. Left ventricular systolic function is normal, estimated at 60-65%. There is no increased left ventricular wall thickness. Left ventricular septal wall motion is normal. The left ventricular diastolic function is indeterminate. Right Ventricle Right ventricular chamber dimension is normal. Right ventricular systolic function is normal. Linear artifact in right ventricle suggestive of catheter(s), pacemaker lead(s), or ICD lead(s). Left Atria Left atrial chamber dimension is normal. Right Atria Right atrial chamber dimension is normal. Aortic Valve The aortic valve is trileaflet. There is no aortic valve sclerosis. There is no aortic valve stenosis. There is no aortic valve regurgitation. Pulmonic Valve The pulmonic valve is normal. There is no pulmonic valve stenosis. There is no pulmonic regurgitation. Mitral Valve The mitral valve has normal leaflets. There is no mitral valve stenosis. There is no mitral valve regurgitation. Tricuspid Valve The tricuspid valve leaflets are normal. There is no significant tricuspid valve stenosis. There is no tricuspid valve regurgitation. No pulmonary hypertension, estimated pulmonary arterial systolic pressure is Empty. Pericardium/Pleural The pericardium appears normal. There is no pericardial effusion. Inferior Vena Cava Normal inferior vena cava with >50% collapse upon inspiration consistent with Empty right atrial pressure, Empty. Aorta The aortic root size at the sinus of Valsalva is normal. The prox ascending aorta size is normal. Report Signatures
[2023-04-18] MEDS: DOPamine 400 MG/D5W 250 ML 400 MG/250 ML BAG 17.16 MG IV CONT (00:38)
[2023-04-18 07:56] LABS: Basophils Percent Auto 0.4 % (0.2-1.2); Eosinophils Absolute Auto 0.5 K/mm3 (0-0.3); Eosinophils Percent Auto 6.8 % (0-4.4); Hematocrit 47.1 % (37.0-47.0); Hemoglobin 15.7 g/dL (12.0-15.0); Immature Granulocyte Absolute 0.01 K/mm3 (0.00-0.031); Immature Granulocyte Percent A 0.1 % (0-0.5); Lymphocytes Absolute Auto 2.68 K/mm3 (0.9-3.2); Lymphocytes Percent Auto 35.1 % (18.3-44.2); Mean Corpuscular HGB Conc 33.3 g/dl (32-36); Mean Corpuscular Volume 90.1 fl (80-100); Mean Platelet Volume 9.4 fl (7.4-10.4); Monocytes Absolute Auto 0.5 K/mm3 (0.1-0.6); Monocytes Percent Auto 6.8 % (2.6-8.5); Neutrophils Absolute Auto 3.9 K/mm3 (1.3-6.7); Neutrophils Percent Auto 50.8 % (45.5-73.1); Platelet Count Result 239 k/mm3 (150-375); Red Blood Count 5.23 M/mm3 (4.2-5.4); White Blood Count 7.6 K/mm3 (4.5-10.0)
[2023-04-18 08:01] LABS: Alanine Aminotransferase 29 U/L (6-35); Albumin Level 4.4 g/dL (3.5-5.1); Alkaline Phosphatase 77 U/L (38-126); Anion Gap 6 mmol/L (8-16); Aspartate Amino Transferase 24 U/L (14-36); Bilirubin,Total 0.6 mg/dL (0.2-1.3); Blood Urea Nitrogen 11 mg/dL (7-17); Calcium 9.4 mg/dL (8.4-10.2); Carbon Dioxide 26 mmol/L (22-30); Chloride 102 mmol/L (98-107); Estimated CRCL calculation 49 ml/min; Estimated Glomerular Filt Rate > 60; Glucose 131 mg/dL (65-110); Magnesium 1.7 mg/dL (1.6-2.3); Phosphorus 4.7 mg/dL (2.5-4.5); Potassium 4.3 mmol/L (3.4-5.0); Sodium 134 mmol/L (137-145)
[2023-04-18 08:16] LABS: Partial Thromboplastin Time 25.1 SECONDS (22.3-36.8); Prothrombin Time 13.5 Seconds (11.1-14.7)
--- NOTE | 2023-04-18 08:53 | WPDINTPN ---
Progress Note: A&P Assessment and Plan (1) Symptomatic bradycardia: Code(s): R00.1 - Bradycardia, unspecified Status: Acute Assessment and Plan: Patient presented on 04/16/2023 with lightheadedness and shortness of breath. She visited her primary care doctor and her heart rate was in the 30s, patient was sent to the ER for further the workup. Patient does take Coreg 3.125 mg p.o. b.i.d. which she has been taking for a while. -according the records patient did have Mobitz type 2 block on her EKG at her PCP's office -continue dopamine -discussed with Cardiology, permanent pacemaker placement today (2) Hypothyroidism (acquired): Code(s): E03.9 - Hypothyroidism, unspecified Status: Acute Assessment and Plan: Continue levothyroxine (3) CAD (coronary artery disease): Code(s): I25.10 - Atherosclerotic heart disease of [place] coronary artery without angina pectoris Status: Acute Assessment and Plan: History of LAD stent and 2016, -continue aspirin and atorvastatin (4) Mixed hyperlipidemia: Code(s): E78.2 - Mixed hyperlipidemia Status: Acute Assessment and Plan: Continue statin as above Plan DVT prophylaxis: SCDs Stress ulcer prophylaxis: Not indicated Nutrition: NPO for now for pacemaker procedure Code Status: Full code Critical Care Time Spent: 32 minutes Due to a high probability of clinically significant, life threatening deterioration, the patient required my highest level of preparedness to intervene emergently and I personally spent this critical care time directly and personally managing the patient. This critical care time included obtaining a history; examining the patient; pulse oximetry; ordering and review of studies; arranging urgent treatment with development of a management plan; evaluation of patient's response to treatment; frequent reassessment; and discussions with other providers. It was exclusive of separately billable procedures and treating other patients and teaching time. Please see Assessment and Plan section and the rest of the note for further information on patient assessment and treatment This dictation may have been done utilizing a voice recognition system. Attempts have been made to correct errors. However, there may be uncorrected grammatical, spelling, and recognitions errors present. Subjective Date/time seen: 04/18/23 08:53 Interval history: Reason for consult: Symptomatic bradycardia, lightheadedness, shortness of breath 04/18/2023: Patient seen and examined the ICU, no issues overnight, denies any chest pain, shortness of breath, abdominal pain, nausea, vomiting. Patient remains on his dopamine 6.5 mcg/kg/min. Currently in sinus bradycardia. Has been tolerating p.o. diet. NPO since midnight for pacemaker procedure today Review of Systems Review of Systems: All systems reviewed & are unremarkable except as noted in HPI and below Exam Narrative: General: Pleasant female in no acute distress HEENT:? Pupils equal and reactive, sclerae is clear Neck:? Supple Respiratory:? Clear to auscultation bilaterally, no wheezing, adequate air entry Cardiac:? Sinus bradycardia Abdomen:? Soft, nontender, nondistended, normoactive bowel sounds Extremities:? No edema, palpable pedal pulses Neuro:? Patient is awake, alert, oriented x3, nonfocal Skin:? Warm and dry Psych:? Normal mentation and affect Objective Data Vital Signs Vital Signs: Vital Signs - 24 hr 04/17/23 10:40 04/17/23 09:20 04/17/23 11:00 Temperature Pulse Rate 55 L 59 L 63 Respiratory Rate Blood Pressure 109/62 132/64 109/62 Pulse Oximetry Oxygen Delivery 04/17/23 10:00 04/17/23 10:00 04/17/23 12:00 Temperature Pulse Rate 52 L 52 L 70 Respiratory Rate 14 Blood Pressure 115/65 Pulse Oximetry 99 Oxygen Delivery 04/17/23 12:00 04/17/23 12:00 04/17/23 14:00 Temperature 98.2 F Pulse Rate 70 70 60 R
--- NOTE | 2023-04-18 10:28 | WPDHPUPDATE1 ---
History and Physical Update Update Date/Time: 04/18/23 10:28 Pt w/ symptomatic bradycardia, still w/ intermittent drops in heart rate to the 30s and symptomatic with lightheadedness. Sometimes looks like sinus bradycardia, sometimes looks like nonconducted APCs in a pattern of bigeminy. Soft blood pressure. history and Physical has been reviewed, including an updated exam of the patient. There are NO changes in the patient's condition. Risks, benefits, and alternatives have been discussed with patient and her family, and questions answered. Reviewed risks of pacemaker implant with patient. These include breathing problems, allergic reactions, bleeding, infection, pneumothorax, cardiac puncture, need for unanticipated surgery, lead dislodgement among others. Patient agrees to proceed with procedure.
--- NOTE | 2023-04-18 10:29 | WPDMODSED ---
Moderate Sedation Note-Pt Data Patient Data Diagnosis: Symptomatic bradycardia Present Complaint: 77-year-old female followed by Dr. Ashton for her history of ACS and Left anterior descending stent who was admitted with symptomatic bradycardia. She has been having episodes of lightheadedness and feels poorly with the heart rate drops into the 30s. Some of this appears to be nonconducted APCs and a pattern of atrial bigeminy and other times is appears to be sinus bradycardia. She has taken carvedilol 3.125 mg b.i.d. for years but this was discontinued on admission she continues to have episodic bradycardia. She has required dopamine at 6.5 mics to maintain her heart rate. Echo yesterday showed normal left ventricular function. I recommended implantation of a permanent dual-chamber pacemaker. Procedure to be performed/Plan: Conscious sedation Venogram Implantation of a permanent dual-chamber pacemaker Allergies Allergy/AdvReac Type Severity Reaction Status Date / Time No Known Allergies Allergy Verified 04/16/23 12:58 Home Medications Medication Instructions Recorded Confirmed Type aspirin 81 mg tablet,delayed 81 mg PO DAILY 10/14/19 04/16/23 History release (Adult Low Dose Aspirin) biotin 1 mg capsule 1 mg PO DAILY 10/14/19 04/16/23 History calcium carbonate 600 mg-vitamin 1 cap PO DAILY 10/14/19 04/16/23 History D3 12.5 mcg (500 unit) capsule (Calcium 600 with Vitamin D3) cetirizine 10 mg capsule 10 mg PO DAILY 10/14/19 04/16/23 History garlic 1,000 mg capsule 1,000 mg PO DAILY 10/14/19 04/16/23 History multivitamin 2 tablet PO DAILY 10/14/19 04/16/23 History omeprazole 20 mg capsule,delayed 20 mg PO DAILY #90 caps 02/09/20 04/16/23 Rx release lactobacillus combination no.9 4 4,000 mmu cells PO DAILY 03/25/20 04/16/23 History billion cell capsule (Adult 50 Plus Probiotic) carvedilol 3.125 mg tablet 3.125 mg PO Q12H #180 tabs 08/30/20 04/16/23 Rx cholecalciferol (vitamin D3) 25 25 mcg PO DAILY 07/11/21 04/16/23 History mcg (1,000 unit) capsule alendronate 70 mg tablet 70 mg PO WEEKLY #14 tabs 12/06/22 04/16/23 Rx ascorbic acid 100 mg-elderberry 1 tablet PO DAILY 04/16/23 04/16/23 History fruit 50 mg chewable tablet (Airborne (elderberry)) atorvastatin 20 mg tablet 20 mg PO QPM 04/16/23 04/16/23 History coQ10 (ubiquinol) 200 mg capsule 400 mg PO DAILY 04/16/23 04/16/23 History levothyroxine 50 mcg tablet See Rx Instructions .Route .COMPLEX 04/16/23 04/16/23 History omega 4-nnf-rfo-fish oil 100 3 cap PO DAILY 04/16/23 04/16/23 History mg-160 mg-1,000 mg capsule (Fish Oil) Current Medications: Active Medications Aspirin (Aspirin 81 Mg Enteric Tablet) 81 mg PO DAILY [facility] Last Admin: 04/17/23 08:26 Dose: 81 mg Atorvastatin Calcium (Atorvastatin 20 Mg Tablet) 20 mg PO QPM [facility] Last Admin: 04/17/23 16:59 Dose: 20 mg Calcium Carbonate (Calcium/Vitamin D 500 Mg Tablet) 500 mg PO [facility] Last Admin: 04/17/23 08:30 Dose: 500 mg Docusate Sodium (Docusate Sodium 100 Mg Capsule) 100 mg PO Q12HR [facility] Fish Oil (Brandon 3 Polyunsat Fatty Acids 1 Gm Cap) 3 gm PO [facility] Last Admin: 04/17/23 08:26 Dose: 3 gm Dopamine HCl/Dextrose (Dopamine 400 Mg/D5w 250 Ml) 400 mg in 250 mls @ 17.16 mls/hr IV CONT .[id number] [facility]; Protocol Last Titration: 04/18/23 08:00 Dose: 6.5 mcg/kg/min, 17.16 mls/hr Levothyroxine Sodium (Levothyroxine Sodium 50 Mcg Tablet) 50 mcg PO [id number] [facility] Last Admin: 04/18/23 05:25 Dose: Not Given Loratadine (Loratadine 10 Mg Tablet) 10 mg PO [facility] Last Admin: 04/17/23 08:27 Dose: 10 mg Coq10 (Ubiquinol) (200 Mg Capsule) 2 each XX DAILY [facility] Stop: 05/17/23 08:59 Pantoprazole Sodium (Pantoprazole 40 Mg Tablet) 40 mg PO [facility] Last Admin: 04/17/23 08:26 Dose: 40 mg Vitamin D (Cholecalciferol 1,000 Units Tablet) 1,000 units PO DAILY [facility] Last Admin: 04/17/23 08:38 Dose: 1,000 units Sedation/Anesthesia: No previous sedation/
--- NOTE | 2023-04-18 12:47 | ECG_ITS ---
Measurements Intervals [place] Rate: 64 P: 38 NC: 144 QRS: -16 QRSD: 136 T: -11 QT: 432 QTc: 447 Interpretive Statements SINUS RHYTHM POSSIBLE LEFT ATRIAL ENLARGEMENT [-0.1mV P WAVE IN V1/V2] RIGHT BUNDLE BRANCH BLOCK [120+ ms QRS DURATION, UPRIGHT V1, 40+ ms S IN I/aVL/V4/V5/V6] MODERATE T-WAVE ABNORMALITY, CONSIDER LATERAL ISCHEMIA [-0.1+ mV T WAVE IN I/aVL/V5/V6] WARNING: DATA QUALITY MAY AFFECT INTERPRETATION COMPARED TO ECG 04/16/2023 14:56:49 SINUS RHYTHM NOW PRESENT Electronically Signed On 04-18-2023 14:15:10 CDT by Viridiana Mckeon M.D.
--- NOTE | 2023-04-18 12:50 | PM.OP ---
Procedure Note - Brief Procedure Note - Brief Date of procedure: 04/18/23 Bradycardia Procedure performed: Conscious sedation venogram implantation of permanent dual-chamber Biotronik pacemaker Surgeon: Viridiana Mckeon MD Description of procedure: successful procedure Estimated blood loss (mL): 10 Urine output (mL): 200 Complications: No immediate complications Condition: Stable Disposition: ICU
--- NOTE | 2023-04-18 12:52 | W.PM.PROC2 ---
Procedure Note - Detailed Date of Procedure 04/18/23 Pre-op Diagnosis Bradycardia Post-op Diagnosis Other ( status post permanent dual-chamber Biotronik pacemaker) Procedure Performed Conscious sedation Venogram Implantation of a permanent dual-chamber Biotronik pacemaker Surgeon Viridiana Mckeon MD Anesthesia Local (and conscious sedation) Indications 77-year-old female followed by Dr. sAhton for her history of ACS and Left anterior descending stent who was admitted with symptomatic bradycardia.? She has been having episodes of lightheadedness and feels poorly with the heart rate drops into the 30s.? Some of this appears to be nonconducted APCs in a pattern of atrial bigeminy and other times is appears to be sinus bradycardia.? She has taken carvedilol 3.125 mg b.i.d. for years but this was discontinued on admission. She continues to have episodic bradycardia.? She has required dopamine at 6.5 mics to maintain her heart rate.? Echo yesterday showed normal left ventricular function.? I recommended implantation of a permanent dual-chamber pacemaker. Description of Procedure SITE: Left prepectoral area MEDICATIONS GIVEN IN CAFE TEAM MEMBER: Ancef 1 gram IV piggyback CONSCIOUS SEDATION: Assessment: The patient has no history of anesthesia problems. The patient's oropharynx is clear. The patient was deemed to be a good candidate for conscious sedation. The patient had continuous hemodynamic monitoring during the procedure. Start time: 1125 Completion time: 1243 Total conscious sedation time: 78 minutes Medications: Versed 2 mg fentanyl 75 mcg push Trained observer: Raheem Lao RN Outcome: The patient tolerated the procedure well with no complications. PROCEDURE: After informed consent , the patient was brought to the refuse laborer and the left prepectoral area was prepped and draped in usual fashion . The patient received preop antibiotic and conscious sedation . The left prepectoral area was anesthetized with lidocaine . A venogram was performed showing the course of the left subclavian vein,which was patent. Next a skin incision was made and carried down to the prepectoral fascia. Hemostasis was obtained using electrocautery . The pacer pocket was formed. The left subclavian vein was easily accessed with the micropuncture technique, and a J-tipped guide wire was passed into the inferior vena cava under fluoroscopic guidance. The needle was withdrawn. A 2nd wire was introduced in an identical fashion. A 7 [place] safety sheath was passed over the lateral wire, the wire withdrawn, and the right ventricular lead was passed into the inferior vena cava under fluoroscopic guidance . The lead was then prolapsed through the tricuspid valve and advanced into the right ventricular apex. When suitable sensing and pacing thresholds were obtained, it was screwed into place. No extra cardiac stimulation was obtained using 10 volts. The sheath was withdrawn. Next, another 7 [place] safety sheath was passed over the more medial wire, the wire withdrawn, and the right atrial lead was passed into the inferior vena cava under fluoroscopic guidance. Right atrial lead was then pulled back to the level of the right atrium and manipulated into the right atrial appendage . When suitable sensing and pacing thresholds were obtained , it was screwed into place . No extra cardiac stimulation was obtained using 10 volts. The sheath was withdrawn. Both leads were secured to the prepectoral fascia using 2-0 silk over their respective sleeves. The pocket was cleansed with antibiotic containing solution . The pulse generator was introduced into the operative field, and both leads were secured into the generator . A gentle tug showed the leads were securely fastened. The device was introduced into the pocket. it was sutured to the prepectoral fascia using 2-0 silk suture. The subcutaneous tissues were closed in a double layer fashion with inte
[2023-04-18] MEDS: PANTOPRAZOLE 40 MG TABLET PO (13:58)
[2023-04-18] MEDS: HYDROcodone/acetaminophen (*CRX) 5-325 MG TABLET 2 TAB PO (13:59)
[2023-04-18] MEDS: DOPamine 400 MG/D5W 250 ML 400 MG/250 ML BAG 14.52 MG IV CONT (14:03)
[2023-04-18] MEDS: ASPIRIN 81 MG ENTERIC TABLET PO (14:05)
--- NOTE | 2023-04-18 14:45 | PM.EVENT ---
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 Has not improved with repositioning. Some improvement after [place] but she states it feels like the pain she had with her [place]. No nausea, shortness of breath or diaphoresis. Blood pressure 107/60, heart rate in the 60s, looks uncomfortable but not in any respiratory distress. Skin is warm and dry, heart is regular rate and rhythm, lungs clear, no tenderness to the left paraspinal area. EKG showed atrially paced rhythm, RBBB, some lateral T-wave inversion which has been seen before, no ST elevation. Chest x-ray showed normal placement of the leads, some interstitial fibrosis verses edema. No pneumothorax. Impression Chest/intrascapular discomfort after pacemaker implant. Hemodynamically stable although if not been able to wean off the dopamine due to low blood pressure. rule out pericardial effusion Plan: Stat echo
[2023-04-18 15:23] LABS: NT Pro B Type Natriuretic Pept 250 pg/mL (19.9-100); Troponin I 0.062 ng/mL (0.000-0.034)
[2023-04-18] MEDS: ONDANSETRON INJ 4 MG/2 ML VIAL IV PUSH (16:36)
[2023-04-18] MEDS: ceFAZolin 1 GM/NS 50 ML 1 GM/50 ML BAG IVPB (17:38)
[2023-04-18 18:10] LABS: Troponin I 0.074 ng/mL (0.000-0.034)
[2023-04-18] MEDS: SODIUM CHLORIDE 0.9% IV 1,000 ML 100 ML IV CONT (18:38)
[2023-04-18 21:35] LABS: Troponin I 0.052 ng/mL (0.000-0.034)
[2023-04-18] MEDS: traMADol HCL (*CRX) 50 MG TABLET PO (21:53)
[2023-04-19] VITALS (15 sets, daily range): BP systolic 83–122; BP diastolic 47–78; PULSE 16–87; RESP 13–23; TEMP 36.6–36.8; O2SAT 93–100
[2023-04-19] MEDS: ceFAZolin 1 GM/NS 50 ML 1 GM/50 ML BAG IVPB (03:24)
[2023-04-19] MEDS: ACETAMINOPHEN 325 MG TABLET 650 MG PO ×2 (06:17→13:08)
[2023-04-19] MEDS: LEVOTHYROXINE SODIUM 50 MCG TABLET PO (06:17)
--- NOTE | 2023-04-19 08:08 | ECG_ITS ---
Measurements Intervals [place] Rate: 71 P: 173 ND: 153 QRS: -20 QRSD: 141 T: -14 QT: 414 QTc: 451 Interpretive Statements ELECTRONIC ATRIAL PACEMAKER RIGHT BUNDLE BRANCH BLOCK [120+ ms QRS DURATION, UPRIGHT V1, 40+ ms S IN I/aVL/V4/V5/V6] MODERATE T-WAVE ABNORMALITY, CONSIDER LATERAL ISCHEMIA [-0.1+ mV T WAVE IN I/aVL/V5/V6] COMPARED TO ECG 04/18/2023 13:46:33 NO SIGNIFICANT CHANGES Electronically Signed On 04-19-2023 15:41:16 CDT by Viridiana Mckeon M.D.
[2023-04-19] MEDS: PANTOPRAZOLE 40 MG TABLET PO (09:02)
[2023-04-19] MEDS: LORATADINE 10 MG TABLET PO (09:02)
[2023-04-19] MEDS: ASPIRIN 81 MG ENTERIC TABLET PO (09:02)
--- NOTE | 2023-04-19 09:28 | WPDINTPN ---
Progress Note: A&P Assessment and Plan (1) Symptomatic bradycardia: Code(s): R00.1 - Bradycardia, unspecified Status: Acute Assessment and Plan: Patient presented on 04/16/2023 with lightheadedness and shortness of breath. She visited her primary care doctor and her heart rate was in the 30s, patient was sent to the ER for further the workup. Patient does take Coreg 3.125 mg p.o. b.i.d. which she has been taking for a while. -according the records patient did have Mobitz type 2 block on her EKG at her PCP's office -04/18/2023: Status post implantation of permanent dual chamber Biotronik pacemaker -post pacemaker insertion patient was hypotensive, was given L IV fluid bolus, dopamine was continued. -currently off dopamine infusion -will discuss with international relations professor to may be increase the rate to 70 or 80 on the pacemaker for adequate blood pressure (2) Hypothyroidism (acquired): Code(s): E03.9 - Hypothyroidism, unspecified Status: Acute Assessment and Plan: Continue levothyroxine (3) CAD (coronary artery disease): Code(s): I25.10 - Atherosclerotic heart disease of [place] coronary artery without angina pectoris Status: Acute Assessment and Plan: History of LAD stent and 2016, -continue aspirin and atorvastatin (4) Mixed hyperlipidemia: Code(s): E78.2 - Mixed hyperlipidemia Status: Acute Assessment and Plan: Continue statin as above Plan DVT prophylaxis: SCDs Stress ulcer prophylaxis: Not indicated Nutrition: Continue heart healthy diet Code Status: Full code Critical Care Time Spent: 32 minutes Due to a high probability of clinically significant, life threatening deterioration, the patient required my highest level of preparedness to intervene emergently and I personally spent this critical care time directly and personally managing the patient. This critical care time included obtaining a history; examining the patient; pulse oximetry; ordering and review of studies; arranging urgent treatment with development of a management plan; evaluation of patient's response to treatment; frequent reassessment; and discussions with other providers. It was exclusive of separately billable procedures and treating other patients and teaching time. Please see Assessment and Plan section and the rest of the note for further information on patient assessment and treatment This dictation may have been done utilizing a voice recognition system. Attempts have been made to correct errors. However, there may be uncorrected grammatical, spelling, and recognitions errors present. Subjective Date/time seen: 04/19/23 09:28 Interval history: Reason for consult: Symptomatic bradycardia, lightheadedness, shortness of breath 04/18/2023: Implantation of permanent dual-chamber Biotronik pacemaker 04/19/2023: Patient seen and examined the ICU, no issues overnight, denies any chest pain, shortness of breath, abdominal pain, nausea, vomiting. Patient is off dopamine, she did receive 1 L IV fluid bolus yesterday. Paced rhythm, hemodynamically stable. Has been tolerating p.o. diet. Urine output has been adequate, patient is afebrile Review of Systems Review of Systems: All systems reviewed & are unremarkable except as noted in HPI and below Exam Narrative: General: Pleasant female in no acute distress HEENT:? Pupils equal and reactive, sclerae is clear Neck:? Supple Respiratory:? Clear to auscultation bilaterally, no wheezing, adequate air entry Cardiac:? Paced rhythm, pacemaker site looks good Abdomen:? Soft, nontender, nondistended, normoactive bowel sounds Extremities:? No edema, palpable pedal pulses Neuro:? Patient is awake, alert, oriented x3, nonfocal Skin:? Warm and dry Psych:? Normal mentation and affect Objective Data Vital Signs Vital Signs: Vital Signs - 24 hr 04/18/23 10:00 04/18/23 10:00 04/18/23 13:00 Temperature Pulse Rate 69 69 70 Res
--- NOTE | 2023-04-19 10:28 | PM.PNCARD ---
Progress Note: A&P Assessment and Plan (1) Sinus bradycardia: Code(s): R00.1 - Bradycardia, unspecified Status: Acute Assessment and Plan: Patient presents with symptomatic sinus bradycardia, no improvement off carvedilol. Normal LV function by echo. Status post dual-chamber Biotronik pacemaker implant 04/18/2023. Interrogation this morning showed good function. Leads in appropriate position by chest x-ray. --continue with outpatient device clinic on discharge (2) Orthostasis: Code(s): I95.1 - Orthostatic hypotension Status: Acute Assessment and Plan: Has had some low blood pressures and documented orthostasis which may be contributing to her symptoms of lightheadedness. --despite 2 L of IV fluids of the last 48 hours the patient still has low blood pressure. May have a degree of autonomic dysfunction, aggravated by recent bed rest. --will try increasing the pacing rate to 75 beats per minute to see if increased cardiac output will help --may need midodrine. (3) CAD (coronary artery disease): Code(s): I25.10 - Atherosclerotic heart disease of [place] coronary artery without angina pectoris Status: Acute Assessment and Plan: History of Left anterior descending stent, stable, asymptomatic. --continue secondary prevention with aspirin and statin therapy. (4) Interscapular pain: Code(s): M54.89 - Other dorsalgia Status: Acute Assessment and Plan: Had intrascapular pain status post pacemaker implant. No pericardial effusion, leads appear in appropriate position, good pacing. Unclear etiology. Probably musculoskeletal. Pleuritic component; there does not appear to be any lead perforation; perhaps a viral infection (patient had nausea, vomiting and diarrhea few days prior to admission). Improved. Troponins were minimally elevated but likely simply due to myocardial manipulation with the screw- in pacing leads. EKG yesterday shows some lateral T-wave inversion but that was seen on prior EKGs as well. --EKG pending for this morning. (5) Pacemaker: Code(s): Z95.0 - Presence of cardiac pacemaker Status: Acute Assessment and Plan: Status post dual-chamber Biotronik pacemaker 04/18/2023 (6) Abnormal chest x-ray: Code(s): R93.89 - Abnormal findings on diagnostic imaging of other specified body structures Status: Acute Assessment and Plan: Radiologist reads chest x-ray showing either interstitial lung disease versus edema. ProBNP was minimally elevated 250. Since then she has received a L IV fluids for low blood pressure and she does have rales so there may be a degree of volume overload due to diastolic dysfunction. However she is not short of breath and does not need any O2. --Perhaps obtain another x-ray in another couple of months as an outpatient through PCP Subjective Date/time seen: 04/19/23 10:28 Interval history: Follow-up for symptomatic bradycardia, status post dual-chamber pacemaker implant 04/18/2023. 77-year-old female followed by Dr. Ashton for her history of ACS and Left anterior descending stent who was admitted with symptomatic bradycardia.? She has been having episodes of lightheadedness and feels poorly with the heart rate drops into the 30s.? Some of this appears to be nonconducted APCs and a pattern of atrial bigeminy and other times is appears to be sinus bradycardia.? She has taken carvedilol 3.125 mg b.i.d. for years but this was discontinued on admission she continued to have episodic bradycardia.? She has required dopamine at 6.5 mics to maintain her heart rate.? Echo showed normal left ventricular function. Pacemaker implant recommended. 04/18/2023 Biotronik dual-chamber pacemaker implant. Date of service 04/19/2023: Patient complained of intrascapular discomfort yesterday. X-ray showed good placement of the leads, EKG showed no ischemic changes, echo showed no pericardial effusion
[2023-04-19] MEDS: CHOLECALCIFEROL 1,000 UNITS TABLET 1000 UNITS PO (11:51)
[2023-04-19] MEDS: OMEGA 3 POLYUNSAT FATTY ACIDS 1 GM CAP PO ×2 (11:51→18:09)
[2023-04-19] MEDS: ALBUMIN HUMAN 25% 25 GM/100 ML 100 ML IVPB (15:03)
--- NOTE | 2023-04-19 16:24 | PC.NURSE ---
[employer] outside energy sales representatives here and increased rate on pacer to 75
[2023-04-19] MEDS: ATORVASTATIN 20 MG TABLET PO (18:09)
[2023-04-19] MEDS: traMADol HCL (*CRX) 50 MG TABLET PO (21:13)
[2023-04-20] VITALS (14 sets, daily range): BP systolic 102–149; BP diastolic 61–84; PULSE 83–96; RESP 14–22; TEMP 36.5–36.6; O2SAT 94–100
[2023-04-20] MEDS: ACETAMINOPHEN 325 MG TABLET 650 MG PO ×2 (00:38→06:42)
[2023-04-20 04:36] LABS: Hematocrit 37.5 % (37.0-47.0); Hemoglobin 12.2 g/dL (12.0-15.0); Mean Corpuscular HGB Conc 32.5 g/dl (32-36); Mean Corpuscular Volume 92.4 fl (80-100); Mean Platelet Volume 9.6 fl (7.4-10.4); Platelet Count Result 174 k/mm3 (150-375); Red Blood Count 4.06 M/mm3 (4.2-5.4); Red Cell Distribution Width 12.7 % (11.5-14.5); White Blood Count 8.2 K/mm3 (4.5-10.0)
[2023-04-20 04:46] LABS: Anion Gap 1 mmol/L (8-16); Blood Urea Nitrogen 16 mg/dL (7-17); Calcium 8.7 mg/dL (8.4-10.2); Carbon Dioxide 31 mmol/L (22-30); Chloride 104 mmol/L (98-107); Estimated CRCL calculation 49 ml/min; Estimated Glomerular Filt Rate > 60; Glucose 101 mg/dL (65-110); Potassium 4.9 mmol/L (3.4-5.0); Sodium 136 mmol/L (137-145)
[2023-04-20 05:31] LABS: Cortisol Random 8.82 ug/dL
[2023-04-20] MEDS: LEVOTHYROXINE SODIUM 50 MCG TABLET PO (06:38)
--- NOTE | 2023-04-20 08:09 | WPDINTPN ---
Progress Note: A&P Assessment and Plan (1) Symptomatic bradycardia: Code(s): R00.1 - Bradycardia, unspecified Status: Acute Assessment and Plan: Patient presented on 04/16/2023 with lightheadedness and shortness of breath. She visited her primary care doctor and her heart rate was in the 30s, patient was sent to the ER for further the workup. Patient does take Coreg 3.125 mg p.o. b.i.d. which she has been taking for a while. -according the records patient did have Mobitz type 2 block on her EKG at her PCP's office -04/18/2023: Status post implantation of permanent dual chamber Biotronik pacemaker -post pacemaker insertion patient was hypotensive, was given L IV fluid bolus, dopamine was continued. -currently off dopamine infusion -04/19: pacemaker rate increased to 75 -blood pressures have been stable since increasing the pacemaker rate -cardiology following closely -will check UA (2) Orthostasis: Code(s): I95.1 - Orthostatic hypotension Status: Acute Assessment and Plan: Patient was hypotensive, received IV fluid bolus x2. -blood pressures were improved after increasing with pacemaker rate -lactic acid is normal -will check UA -and blood pressures drop, will consider midodrine (3) Hypothyroidism (acquired): Code(s): E03.9 - Hypothyroidism, unspecified Status: Acute Assessment and Plan: Continue levothyroxine (4) CAD (coronary artery disease): Code(s): I25.10 - Atherosclerotic heart disease of [place] coronary artery without angina pectoris Status: Acute Assessment and Plan: History of LAD stent and 2016, -continue aspirin and atorvastatin (5) Mixed hyperlipidemia: Code(s): E78.2 - Mixed hyperlipidemia Status: Acute Assessment and Plan: Continue statin as above Plan DVT prophylaxis: SCDs Stress ulcer prophylaxis: Not indicated Nutrition: Continue heart healthy diet Code Status: Full code Critical Care Time Spent: 31 minutes Due to a high probability of clinically significant, life threatening deterioration, the patient required my highest level of preparedness to intervene emergently and I personally spent this critical care time directly and personally managing the patient. This critical care time included obtaining a history; examining the patient; pulse oximetry; ordering and review of studies; arranging urgent treatment with development of a management plan; evaluation of patient's response to treatment; frequent reassessment; and discussions with other providers. It was exclusive of separately billable procedures and treating other patients and teaching time. Please see Assessment and Plan section and the rest of the note for further information on patient assessment and treatment This dictation may have been done utilizing a voice recognition system. Attempts have been made to correct errors. However, there may be uncorrected grammatical, spelling, and recognitions errors present. Subjective Date/time seen: 04/20/23 08:09 Interval history: Reason for consult: Symptomatic bradycardia, lightheadedness, shortness of breath 04/18/2023: Implantation of permanent dual-chamber Biotronik pacemaker 04/20/2023: Patient seen and examined the ICU, no issues overnight, denies any chest pain, shortness a breath, nausea, vomiting, abdominal pain. States she feels much better this morning. Blood pressures have been good after increasing her pacemaker rate to 75 yesterday. Tolerating p.o. diet, urine output has been adequate, patient has been afebrile. She has been of dopamine Review of Systems Review of Systems: All systems reviewed & are unremarkable except as noted in HPI and below Exam Narrative: General: Pleasant female in no acute distress HEENT:? Pupils equal and reactive, sclerae is clear Neck:? Supple Respiratory:? Clear to auscultation bilaterally, no wheezing, adequate air entry Cardiac:? Paced rhythm,
[2023-04-20] MEDS: CHOLECALCIFEROL 1,000 UNITS TABLET 1000 UNITS PO (08:11)
[2023-04-20] MEDS: DOCUSATE SODIUM 100 MG CAPSULE PO (08:11)
[2023-04-20] MEDS: LORATADINE 10 MG TABLET PO (08:11)
[2023-04-20] MEDS: ASPIRIN 81 MG ENTERIC TABLET PO (08:12)
[2023-04-20] MEDS: PANTOPRAZOLE 40 MG TABLET PO (08:12)
[2023-04-20] MEDS: OMEGA 3 POLYUNSAT FATTY ACIDS 1 GM CAP PO ×2 (08:12→12:56)
--- NOTE | 2023-04-20 14:16 | PM.PNCARD ---
Progress Note: A&P Assessment and Plan (1) Pacemaker: Code(s): Z95.0 - Presence of cardiac pacemaker Status: Acute (2) Bradycardia: Code(s): R00.1 - Bradycardia, unspecified Status: Acute Plan 77-year-old lady with symptomatic bradycardia. Unusual rhythm in that she had sinus bradycardia with atrial bigeminy where PACs were nonconducted. This was NOT second-degree AV block as was suspected by the PCP. None the less she was symptomatically bradycardic and required pacemaker implantation. He is doing well at this time and can be discharged today from my perspective. We will see her in the office next week to remove the dressing and follow-up in the office is already scheduled. Terrell Ashton MD [facility] Subjective Date/time seen: Date of service: 04/20/23 14:16 Interval history: Reason for consult: Symptomatic bradycardia, lightheadedness, shortness of breath 04/18/2023: Implantation of permanent dual-chamber Biotronik pacemaker 04/20/2023: Patient seen and examined the ICU, no issues overnight, denies any chest pain, shortness a breath, nausea, vomiting, abdominal pain. States she feels much better this morning. Blood pressures have been good after increasing her pacemaker rate to 75 yesterday. Tolerating p.o. diet, urine output has been adequate, patient has been afebrile. She has been of dopamine 04/20/2023: Patient is feeling well today she is happy with the results of her dual-chamber pacemaker implant. Device is functioning normally. Heart rate increased yesterday as per the above note. Exam Narrative: and granddaughter at bedside Const: General: cooperative, healthy appearing and comfortable; No confusion Orientation/consciousness: oriented to person, patient oriented x3 and No confusion HENMT: Mouth: Yes moist mucous membranes Eyes: General: appearance normal, both eyes and all related structures EOM: EOMs intact bilaterally Neck: Neck: supple and no JVD Thyroid: thyroid normal Carotids: no bruits Resp: Effort & Inspection: normal respiratory effort Auscultation: clear to auscultation bilaterally and rales (Rales noted in both bases) Cardio: Rate: regular rate Rhythm: regular rhythm Heart sounds: no murmurs Other: Intact dorsalis pedis pulses GI: Inspection: normal to inspection Skin: General skin exam: normal color and no rashes or lesions noted Other: Pacer site has intact bandage, no ecchymosis or hematoma. Neuro: General: oriented to person, patient oriented x3 and No confusion Extrem: Right lower extremity: no edema Left lower extremity: no edema Psych: Appearance: grossly normal Mental Status: mental status grossly normal Objective Data Vital Signs Vital Signs: Vital Signs - 24 hr 04/19/23 16:00 04/19/23 16:00 04/19/23 16:00 Temperature 36.8 C Pulse Rate 73 73 Respiratory Rate 23 H Blood Pressure 91/47 L Pulse Oximetry 97 97 Oxygen Delivery Room Air 04/19/23 18:00 04/19/23 18:00 04/19/23 20:00 Temperature Pulse Rate 86 86 87 Respiratory Rate 23 H Blood Pressure 108/67 Pulse Oximetry 98 Oxygen Delivery 04/19/23 20:00 04/19/23 22:00 04/19/23 22:00 Temperature 36.8 C Pulse Rate 87 84 84 Respiratory Rate 22 H 20 Blood Pressure 104/64 122/71 Pulse Oximetry 99 97 Oxygen Delivery 04/20/23 00:00 04/20/23 02:00 04/20/23 00:00 Temperature Pulse Rate 86 90 86 Respiratory Rate 17 Blood Pressure 116/77 Pulse Oximetry 95 Oxygen Delivery 04/20/23 02:00 04/20/23 04:00 04/20/23 04:00 Temperature 36.6 C Pulse Rate 90 85 85 Respiratory Rate 16 17 Blood Pressure 112/68 102/66 Pulse Oximetry 96 94 Oxygen Delivery 04/20/23 06:00 04/20/23 06:00 04/20/23 07:44 Temperature 36.6 C Pulse Rate 85 85 86 Respiratory Rate 16 15 Blood Pressure 119/77 Pulse Oximetry 96 96 Oxygen Delivery Room Air 04/20/23 08:00 04/20/23 08:00 04/20/23
--- NOTE | 2023-04-20 14:27 | PM.DS ---
DS: Admitting Diagnosis Discharge Date 04/20/23 Admitting Diagnosis heart block DS: Discharge Diagnosis Discharge Diagnosis (1) Symptomatic bradycardia: Code(s): R00.1 - Bradycardia, unspecified Status: Acute Assessment and Plan: Patient presented on 04/16/2023 with lightheadedness and shortness of breath. She visited her primary care doctor and her heart rate was in the 30s, patient was sent to the ER for further the workup. Patient does take Coreg 3.125 mg p.o. b.i.d. which she has been taking for a while. -according the records patient did have Mobitz type 2 block on her EKG at her PCP's office -04/18/2023: Status post implantation of permanent dual chamber Biotronik pacemaker -post pacemaker insertion patient was hypotensive, was given L IV fluid bolus, dopamine was continued. -currently off dopamine infusion -04/19: pacemaker rate increased to 75 -blood pressures have been stable since increasing the pacemaker rate -cardiology following closely -will check UA (2) Orthostasis: Code(s): I95.1 - Orthostatic hypotension Status: Acute Assessment and Plan: Patient was hypotensive, received IV fluid bolus x2. -blood pressures were improved after increasing with pacemaker rate -lactic acid is normal -will check UA -and blood pressures drop, will consider midodrine (3) Hypothyroidism (acquired): Code(s): E03.9 - Hypothyroidism, unspecified Status: Acute Assessment and Plan: Continue levothyroxine (4) CAD (coronary artery disease): Code(s): I25.10 - Atherosclerotic heart disease of [place] coronary artery without angina pectoris Status: Acute Assessment and Plan: History of LAD stent and 2016, -continue aspirin and atorvastatin (5) Mixed hyperlipidemia: Code(s): E78.2 - Mixed hyperlipidemia Status: Acute Assessment and Plan: Continue statin as above Plan DVT prophylaxis: SCDs Stress ulcer prophylaxis: Not indicated Nutrition: Continue heart healthy diet Code Status: Full code Critical Care Time Spent: 31 minutes Due to a high probability of clinically significant, life threatening deterioration, the patient required my highest level of preparedness to intervene emergently and I personally spent this critical care time directly and personally managing the patient. This critical care time included obtaining a history; examining the patient; pulse oximetry; ordering and review of studies; arranging urgent treatment with development of a management plan; evaluation of patient's response to treatment; frequent reassessment; and discussions with other providers. It was exclusive of separately billable procedures and treating other patients and teaching time. Please see Assessment and Plan section and the rest of the note for further information on patient assessment and treatment This dictation may have been done utilizing a voice recognition system. Attempts have been made to correct errors. However, there may be uncorrected grammatical, spelling, and recognitions errors present. DS: Summary Hospital Course Hospital Course: Per cardiology: 77-year-old lady with symptomatic bradycardia.? Unusual rhythm in that she had sinus bradycardia with atrial bigeminy where PACs were nonconducted.? This was NOT? second-degree AV block as was suspected by the PCP.? None the less she was symptomatically bradycardic and required pacemaker implantation.? He is doing well at this time and can be discharged today from my perspective.? We will see her in the office next week to remove the dressing and follow-up in the office is already scheduled. Time Spent with Patient Time attestation: Total time spent providing and/or coordinating discharge services: Exam Narrative: General: Pleasant female in no acute distress HEENT:? Pupils equal and reactive, sclerae is clear Neck:? Supple Respiratory:? Clear to auscultation bilaterally, no wheezing, ad
== END 2023-04-20 14:50 | disposition home or self-care (01) | DRG 244 ==
LOC: ANHED 15:17 → ANHICU 20:22
PROVIDERS: Emergency Medicine; Internal Medicine; Internal Medicine Cardiovascular Disease; Admitting Provider Hospitalist; Emergency Provider Student in an Organized Health Care Education/Training Program; PCP Family Medicine; Visit Provider Chiropractor
PROC: 0JH606Z Insertion of Pacemaker, Dual Chamber into Chest Subcutaneous Tissue and Fascia, Open Approach (ICD-10-PCS; CPT 33208; principal; 2023-04-18 10:30)
DX: R00.1 Bradycardia, unspecified (principal); I95.1 Orthostatic hypotension; E03.9 Hypothyroidism, unspecified; I25.10 Atherosclerotic heart disease of native coronary artery without angina pectoris; E78.2 Mixed hyperlipidemia; K21.9 Gastro-esophageal reflux disease without esophagitis; M85.80 Other specified disorders of bone density and structure, unspecified site; K44.9 Diaphragmatic hernia without obstruction or gangrene; I95.81 Postprocedural hypotension; I25.2 Old myocardial infarction; Z95.5 Presence of coronary angioplasty implant and graft; Z85.3 Personal history of malignant neoplasm of breast; Z98.42 Cataract extraction status, left eye; Z98.41 Cataract extraction status, right eye; Z96.1 Presence of intraocular lens; Z79.82 Long term (current) use of aspirin
CPT/HCPCS: 33208; 36415; 71045; 71046; 80048; 80053; 82533; 83690; 83735; 83880; 84100; 84443; 84484; 85025; 85027; 85610; 85730; 93005; 93308; 96374; 99285; A9270; C1779; C1785; C1894; C8929; J0690; J1265; J2250; J2405; J3010; J7030; J7040; P9047; Q9957

== ENCOUNTER → 2023-08-14 15:13 | Outpatient (CLI) | payer MEDICARE, OTHER, SELFPAY ==
--- NOTE | ~2023-08-14 | MM_ITS ---
EXAMINATION: MM screening fidel RT w yogesh HISTORY: Screening mammogram TECHNIQUE: Craniocaudal and mediolateral oblique 3-D tomosynthesis images were obtained and synthetic 2-D images were generated. CAD analysis was submitted and interpreted. COMPARISON: 02/13/2022 right screening mammogram 01/25/2021 diagnostic right mammogram and limited right breast ultrasound 6 12/30/2020, 11/04/2019 bilateral screening mammogram examinations BREAST PARENCHYMAL COMPOSITION: There are scattered areas of fibroglandular density. FINDINGS: There is no evidence of suspicious mass, calcification, or architectural distortion to sugg est malignancy in either breast. There has been no suspicious interval change. IMPRESSION: 1. No mammographic evidence of malignancy. 2. Recommend routine screening mammography in one year. BI-RADS Category 1: Negative Reviewed, dictated and finalized at location A. TING PRESSMAN
== END ==
PROVIDERS: PCP Family Medicine; Visit Provider Family Medicine
DX: Z12.31 Encounter for screening mammogram for malignant neoplasm of breast (principal)
CPT/HCPCS: 77063; 77067

== ENCOUNTER → 2023-09-05 09:40 | Outpatient (CLI) | payer MEDICARE, OTHER, SELFPAY ==
--- NOTE | ~2023-09-05 | US_ITS ---
EXAMINATION: US breast LT limited HISTORY: Patient with history of left mastectomy and implant reconstruction presents with left breast pain TECHNIQUE: Limited left breast ultrasound is performed. FINDINGS: No suspicious cystic or solid mass is identified in the left breast to correlate with the p atient's left breast pain. The visualized portions of the breast implant appear normal. IMPRESSION: No specific sonographic correlate is identified for the patient's reported left breast pain. Further evaluation at this time should be based on clinical assessment. Continued follow-up physical examinat ion is recommended. BI-RADS Category 1: Negative Reviewed, dictated and finalized at location A. S ADVISOR IMPRESSION: No specific sonographic correlate is identified for the patient's reported left breast pain. Further evaluation at this time should be based on clinical asses sment. Continued follow-up physical examination is recommended. BI-RADS Category 1: Negative
== END ==
PROVIDERS: PCP Physician Assistant; Visit Provider Physician Assistant
DX: N64.4 Mastodynia (principal)
CPT/HCPCS: 76642

== ENCOUNTER 2024-10-16 12:25 | Outpatient (CLI) | payer MEDICARE, OTHER, SELFPAY ==
--- NOTE | ~2024-10-16 | MM_ITS ---
EXAMINATION: MM screening fidel RT w yogesh HISTORY: Screening TECHNIQUE: Craniocaudal and mediolateral oblique 3-D tomosynthesis images were obtained and synthetic 2-D images were generated. CAD analysis was submitted and interpreted. COMPARISON: Comparison to multiple prior studies sequentially, with oldest reviewed study dated 10/15. BREAST PARENCHYMAL COMPOSITION: Not dense: There are scattered areas of fibroglandular density. FINDINGS: There is no evidence of suspicious mass, calcification, or architectural distortion to sugg est malignancy in the right breast. There has been no suspicious interval change. IMPRESSION: 1. No mammographic evidence of malignancy. 2. Recommend routine screening mammography in one year. BI-RADS Category 1: Negative Reviewed, dictated and finalized at location B. OARD ACTION ASSEMBLER
== END 2024-10-16 12:26 | disposition home or self-care (01) ==
LOC: MICIMG 12:27
PROVIDERS: PCP Physician Assistant; Visit Provider Physician Assistant
DX: Z12.31 Encounter for screening mammogram for malignant neoplasm of breast (principal)
CPT/HCPCS: 77063; 77067

== ENCOUNTER 2025-02-09 08:08 | Outpatient (CLI) | payer MEDICARE, OTHER, SELFPAY ==
--- NOTE | ~2025-02-09 | DEXA_ITS ---
Bone Density Report Name: CESILIA BENSON Age: 79 Sex: Female Ethnicity: White Date of : 1945 Indication: postmenopausal; screening for osteoporosis; hysterectomy; Referring Provider: ANI MONTANO Study: Bone densitometry was performed. Exam Date: February 09, 2025 Accession number: [id number] Bone Density: Region BMD T-score Z-score Classification AP Spine(L1-L4) 0.926 -1.1 1.6 Osteopenia Femoral Neck (Left) 0.664 -1.7 0.6 Osteopenia Total Hip (Left) 0.807 -1.1 1.0 Osteopenia Femoral Neck (Right) 0.680 -1.5 0.8 Osteopenia Total Hip (Right) 0.848 -0.8 1.3 Normal Total Hip Mean 0.827 -1.0 1.2 Normal World Health Organization criteria for BMD impression classify patients as: Normal (T-score at or above -1.0), Osteopenia (T-score between -1.0 and -2.5), or Osteoporosis (T-score at or below -2.5). 10-year Fracture Risk(1): Major Osteoporotic Fracture 14% Hip Fracture 3.5% Reported Risk Factors: [place] (), Neck BMD=0.664, BMI=27.3 (1) FRAX(R) Version 3.08. Fracture probability calculated for an untreated patient. Fracture probability may be lower if the patient has received treatment. Previous Exams: -- Region Exam Age BMD T-score BMD Change BMD Change Date g/cm2 vs Baseline vs Previous -- AP Spine (L1-L4) 02/09/2025 79 0.926 -1.1 9.2%* -1.6% 03/01/2021 75 0.941 -1.0 11.0%* 9.7%* 07/17/2017 71 0.858 -1.7 1.1% -0.1% 09/22/2014 68 0.859 -1.7 1.3% -0.5% 09/20/2012 66 0.863 -1.7 1.7% 1.7% 09/20/2012 66 0.848 -1.8 Total Hip(Left) 02/09/2025 79 0.807 -1.1 -4.5%* -4.0%* 03/01/2021 75 0.840 -0.8 -0.5% 0.1% 07/17/2017 71 0.839 -0.8 -0.6% 2.3% 09/22/2014 68 0.820 -1.0 -2.9% -2.9% 09/20/2012 66 0.845 -0.8 Total Hip(Right) 02/09/2025 79 0.848 -0.8 -4.1%* -5.4%* 03/01/2021 75 0.896 -0.4 1.4% 5.6%* 07/17/2017 71 0.849 -0.8 -4.0%* -0.3% 09/22/2014 68 0.852 -0.7 -3.7%* -3.7%* 09/20/2012 66 0.884 -0.5 -- *Denotes significance at 95% confidence level, LSC for AP Spine = 0.022 g/cm2, LSC for Total Hip = 0.027 g/cm2 Clinical Information Provided by Patient: Has used the following medications: Fosamax (i.e. alendronate), Vitamin D, Calcium Has the following medical conditions: Hysterectomy Patient maximum height was 64 Menopause Age: 47 Onset of menses at age 13 Number of children 3 Impression: The patient has low bone mass, based on the Left Femoral Neck T-score. The patient has an estimated ten-year risk of hip fracture of 3.5% and an estimated ten-year risk of major fracture of 14%, based on the WHO FRAX algorithm. The BMD for the Total Hip(Left) decreased, changing by -4.0% since the last DXA exam. The BMD for the Total Hip(Right) decreased, changing by -5.4% since the last DXA exam. Discussion: BONE DENSITY IS LOW AT ONE OR MORE SKELETAL SITES. THE PATIENT'S BMD AND CLINICAL RISK FACTORS CONTRIBUTE TO THIS PATIENT'S INCREASED RISK OF FRACTURE. This patient's lowest T-score is low at one or more skeletal sites. It meets the World Health Organization's (WHO) criteria for ?low bone mass? (T-score between -1.0 and -2.5). The patient's 10-year risk of hip fracture as calculated by FRAX exceeds the threshold where pharmacological therapy is recommended by the National Osteoporosis Foundation (NOF). However, all treatment decisions require clinical judgment and consideration of individual patient factors, including patient preferences, comorbidities, previous drug use, risk factors not captured in the FRAX model (e.g., frailty, falls, vitamin D deficiency, increased bone turnover, interval significant decline in bone density) and possible under or overestimation of fracture risk by FRAX. The patient should follow a healthful lifestyle (good nutrition with adequate calcium and vitamin D, and appropriate weight-bearing exercise). Follow-Up: Consider a repeat BMD and Vertebral Fracture Assessment (VFA) exam in 2 years or sooner if medically necessary, to reassess this patient's status. Reported by: EDWIN on 02/09/2025 8:28:00 AM. Reviewed, dictated and finalized at location A.
== END 2025-02-09 08:09 | disposition home or self-care (01) ==
LOC: MICIMG 08:09
PROVIDERS: PCP Family Medicine; Visit Provider Family Medicine
DX: Z78.0 Asymptomatic menopausal state (principal); M85.88 Other specified disorders of bone density and structure, other site; M85.852 Other specified disorders of bone density and structure, left thigh; M85.851 Other specified disorders of bone density and structure, right thigh
CPT/HCPCS: 77080

== ENCOUNTER 2025-02-11 08:50 | Outpatient (CLI) | payer MEDICARE, OTHER, SELFPAY ==
--- NOTE | ~2025-02-11 | XR_ITS ---
EXAMINATION: XR fl inj knee LT for MR/CT DATE: 02/11/2025 09:44 INDICATION: Left knee pain TECHNIQUE: A time-out was performed to verify the patient's name, date of , and procedure to b e performed. The procedure including the risks, benefits, and alternatives was discussed with the pat ient. Risks discussed included bleeding and infection. The patient understood the risks and agreed to proceed. The skin overlying the lateral side of the left knee joint was prepped and draped in usual sterile fashion. Anesthetic was administered with 1% lidocaine subcutaneously. A 22 G needle was a dvanced under fluoroscopic guidance into the joint. Subsequently, injectate consisting of 40 mL of 4 :5:1 mixture of sterile saline:Omnipaque 240:1% lidocaine was instilled with intra-articular administ ration confirmed with intermittent fluoroscopy. The needle was removed and the entry site was cleaned and dressed. There were no immediate complications. Fluoroscopy exposure time was 0.1 minutes. The total number of images was 8. Total DAP was 0.2 Gycm^2. FINDINGS: Real-time fluoroscopy demonstrates the needle in the left knee joint. Patient's pain prior to procedure:5/10. Patient's pain following the procedure: 0/10. IMPRESSION: 1. Centimeters the left knee joint injection injection of of iodinated contrast mixture for subsequen t CT arthrogram which will be dictated separately. 2. Injected which also included for millimeter of lidocaine resulting in decrease in the patient's pr esenting pain. Reviewed, dictated and finalized at location B. IMPRESSION: 1. Centimeters the left knee joint injection injection of of iodinated contrast mixture for subsequent CT arthrogram which will be dictated separately. 2. Injected which also included for millimeter of lidocaine resulting in decrea se in the patient's presenting pain.
--- NOTE | ~2025-02-11 | CT_ITS ---
EXAMINATION: CT knee LT w con DATE: 02/11/2025 09:44 INDICATION: Left knee pain TECHNIQUE: High resolution computed tomography (CT) of the left knee was performed on the intra-artic ular administration of iodinated contrast mixture but without intravenous contrast. Details of the co ntrast mixture in joint injection have been dictated separately. Additional sagittal and coronal rissa nstructions were performed. Automated exposure control and iterative reconstruction technique were em ployed. The dose-length product was 570.45 mGy-cm. COMPARISON: Left knee radiographs dated 12/30/2024 FINDINGS: Bone alignment is normal. No fracture. In the medial compartment there is medial extrusion of the med ial meniscus. No discrete meniscal tear. There is deep chondral ulceration involving greater than 50% the cartilage thickness with chondral surface regularity at the anterior weightbearing medial femora l condyle and along the anteromedial margin of the medial tibial plateau. The lateral meniscus appear s normal. There is partial thickness chondral ulceration and fissuring involving approximately 50% th e cartilage thickness at the posterior half of the lateral tibial plateau. There is additional partia l-thickness chondral ulceration and deep fissuring at the central weightbearing lateral femoral condy le. There is deep chondral ulceration and fissuring at the cephalad aspect of the medial patellar fac et and apical ridge with underlying cortical irregularity and mild subarticular cystlike changes. Add itional deep chondral ulceration and fissuring along the medial and inferior margins of the medial tr ochlea with additional mild subarticular cystlike changes along the inferior aspect and medial trochl ea. There is mild synovitis at the margins of the suprapatellar pouch as well as within a moderate-si zed Rice's cyst also opacified with contrast. Although evaluation is significantly more limited with CT than MRI, the anterior and posterior cruciate ligaments, medial and lateral collateral ligament c omplexes, extensor mechanism and flexor tendons at the posterior medial and posterolateral aspects of the knee all appear unremarkable. IMPRESSION: 1. 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 2. Medial extrusion of the medial meniscus without discrete tear. Reviewed, dictated and finalized at location B. IMPRESSION: 1. 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 2. Medial extrusion of the medial meniscus without discrete tear.
--- OUTSIDE RECORDS SUMMARY | 2025-02-11 09:19 | XMS_ITS | Continuity of Care Document ---
Author Organization [facility] Address [address] [place] [address] Phone Care Team Providers Care Pharmacy Analyst Name Role Phone Juan Ward MD Unavailable Unavailable Allergies, Adverse Reactions, Alerts Substance Reaction Status Criticality No Known Drug Allergies Other Active No I nformation Medications Medication Instructions Dosage Effective Dates (start - stop) Status Comments ELESTAT 0.05% EYE DROPS 1 BID - Active ZYRTEC-D TABLET 1 BID - Active FLONASE 50MCG APPLICS 2 QD-daily - Act cass ELESTAT 0.05% DROPS 1 BID - No Longer Active ZYRTEC-D 120-5MG TABS 1 BID - No Longer Active AMOX TR-POTASSIUM CLAVULANATE 1 BID - No Longer Active DIFLUCAN 150MG TABS 1 DAILY - No Longer Active Advance Directives Directive Yes / No Effective Date File Name No Information Encounters Encounter Description Practice Location Reason(s) For Visit Diagnoses Date Provider Providers Copied on Encounter [facility], [address], [place], [place], [id number] , [place] tel: [phone] [facility] No Information 1 Ed Martinez. [address], [id number], [place]. tel:[phone] [facility], [address], [place], [place], [id number] , [place] tel: [phone] [facility] AC ATOPIC CONJUNCTIVITISRHI NITIS DUE TO POLLEN 7 Conversion Doctor. [facility] [place], [address], . [facility], [address], [place], [place], [id number] , tel: [phone] [facility] CHR MAXILLARY SINUSITISACUTE URI NOS Conversion Doctor. [facility] [place], [address], . [facility], [address], [place], [place], [id number] , tel: [phone] [facility] No Information Ed Martinez. [address] [place] [address], [id number], . tel:[phone] [facility], [address], [place], [place], [id number] , tel: [phone] [facility] CANDIDAL VULVOVAGINITIS Conversion Doctor. [facility] [place], [address], . Family History Family Member Type Diagnosis Age At Onset No Information Payers Payer name Insurance type Covered democrat ID Authoriza tion(s) No Information Social History Type Description Quantity Date Captured Comments Sex Female Smoking Status No Information Chief Complaint And Reason For Visit No Information Reason For Referral Reason For Referral No Information History Of Present Illness Encounter Date Complaint History Of Prese nt Illness No Information Functional Status Date Functional Assessmen t No Information Instructions Date Instruction Additional Infor mation No Information Assessments Type Assessment Date No Information Patient Care Teams Name Effective Dates (start - stop) Status Members No Information
--- OUTSIDE RECORDS SUMMARY | 2025-02-11 09:19 | XMS_ITS | Clinical Summary ---
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 Gender Identity Not on file Sexual Orientation Not on file Plan of Treatment Health Maintenance Due Date Last Done Comments Hepatitis C Virus (HCV) Screening 1945 TdaP Immunization 1945 Zoster Immunization (1 of 2) 1994 Respiratory Syncytial Virus (RSV) Immunization (Adult) (1 - 1-dose 75+ series) 11/28/2019 SARS-COV-2 Immunization ( season) 2024 Influenza Immunization (Season Ended) 2025 06/08/2020, 09/27/2019, 06/10/2019, Additional history exists Pneumococcal Immunization (50+ years) Completed 06/25/2020, 06/10/2019 Pneumococcal Immunization Combined Discontinued 06/25/2020, 06/10/2019 Hepatitis B Immunization Aged Out No longer eligible based on patient's age to complete this topic Human Papillomavirus (HPV) Immunization Aged Out No longer eligible based on patient's age to complete this topic Meningococcal Immunization (ACWY) Aged Out No longer eligible based on patient's age to complete this topic Rotavirus Immunization Aged Out No lo nger eligible based on patient's age to complete this topic
--- OUTSIDE RECORDS SUMMARY | 2025-02-11 09:20 | XMS_ITS | Encounter Summary ---
Author Organization [facility] Address [address] [place] [address] Care Team Providers Care Zipper Setter Chainstitch Name Role Phone Unavailable Primary Care Provider Unavailabl e Encounter Details Date Type Department Care Team (Late st Contact Info) Description 04/14/2024 Lab Requisition [facility] - DermPath Lab [address] [place] [id number] Dileep Leach MD [address] [place] [address] Social History Tobacco Use Types Packs/Day Years Used Date Smoking Tobacco: Never Assessed Comments Unknown Sex and Gender Information Value Date Recorded Sex Assigned at Not on file 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 Gender Identity Not on file Sexual Orientation Not on file documented as of this encounter Plan of Treatment Not on file documented as of this encounter Procedures Procedure Name Priority Date/Time Associated Diagnosis Comments DERMATOPATHOLOGY Routine 04/09/2024 12:0 0 AM CDT documented in this encounter Results * DERMATOPATHOLOGY (04/09/2024 12:00 AM CDT) Case Report Dermatopathology Report Case: [id number] Authorizing Provider: Dileep Leach MD Collected: 04/09/2024 12:00 AM Ordering Location: [facility] - Received: 04/14/2024 09:26 AM DermPath Lab Pathologist: Sandie Nguyen MD Specimen: Skin, right anterolateral mid pretibia 2:36 PM CDT DERMATOPATHOLOGY LABORATORY Final Diagnosis Specimen A. SKIN, right anterolateral mid pretibia: HYPERPLASTIC (HYPERTROPHIC) ACTINIC KERATOSIS, LICHENOID (L57.0) EPIDERMAL NECROSIS SUGGESTIVE OF EXCORIATION (L98.499) (see microscopic description) 4 2:36 PM CDT DERMATOPATHOLOGY LABORATORY at 1436 CDT Clinical History R/O SCC vs SCCIS vs HAK 4 2:36 PM CDT DERMATOPATHOLOGY LABORATORY Gross Description Specimen A: Received is one formalin filled container labeled with the patient's name and designated right anterolateral mid pretibia. The specimen consists of a shave biopsy measuring 12x9x1 mm. Jar 0. 4 2:36 PM CDT DERMATOPATHOLOGY LABORATORY Microscopic Description Specimen A. SKIN, right anterolateral mid pretibia: There is hyperkeratosis alternating with parakeratosis. There is epidermal hyperplasia with disorderly maturation of keratinocytes with nuclear pleomorphism confined to the lower half of the epidermis. The dermis shows a band-like, chronic inflammatory infiltrate with occasional apoptotic keratinocytes and some basal vacuolar alteration. The epidermis is focally necrotic and covered with a scale-crust. There is fibrin at the base. 2:36 PM CDT DERMATOPATHOLOGY LABORATORY Disclaimer An external and internal positive and negative controls are appropriate for the histochemical, immunohistochemical and immunofluorescence stain(s) in this case (if any), except where stated explicitly. The performance characteristics of the stain(s) cited in this report were developed and its performance characteristic determined by the Dermatopathology Laboratory at [facility], directed by Dr. Twan Camejo. These tests need not be, and therefore are not, approved by the [place] Food and Drug Administration. The tests are used for clinical purposes. Billing Codes Specimen Charges Stain Charges 98655 1 4 2:36 PM CDT DERMATOPATHOLOGY LABORATORY Embedded Images 4 2:36 PM CDT DERMATOPATHOLOGY LABORATORY Pathology/Cytolog y TISSUE SPECIMEN FROM SKIN / Unknown 04/09/2024 04/14/2024 9:26 AM CDT us Dileep Leach MD LAB - PATHOLOGY/CYTOLOGY ORD ERABLES Final Result DERMATOPATHOLOGY LABORATORY [facility] - Department of Dermatology [address], [address] [phone] documented in this encounter Visit Diagnoses Not on filedocumented in this encounter
--- OUTSIDE RECORDS SUMMARY | 2025-02-11 09:20 | XMS_ITS | Clinical Summary ---
Author Organization [facility] [address] Address [address] [place] [address] Care Team Providers Care Hatchery Attendant Name Role Phone Nafisa Quinn MD Primary Care Provider Allergies No known active allergies Medications omeprazole (PriLOSEC) 20 mg capsule take 1 capsule by oral route every day before a meal 0 0 01/06/20 16 Active aspirin (ASPIR-81) 81 mg tablet take 1 Tablet by oral route every day 0 0 01/06/20 16 Active MULTIVIT-BELT LOOP MAKER ALS/FERROUS FUM (MULTI VITAMIN ORAL) Take by mouth. Active omega-3 fatty acids-fish oil 360-1,200 mg capsule Take by mouth. Active CALCIUM CARBONATE/ELIA MIN D3 (CALCIUM 600 + D,3, ORAL) Take by mouth. Active cholecalcifero l (VITAMIN D-3) 2000 unit capsule 1 capsule (2,000 Units total) Active UBIDECARENONE/ VITAMIN E MIXED (COQ10 SG 100 ORAL) Take by mouth. Active garlic 1,000 mg capsule Take by mouth. Active alendronate (FOSAMAX) 70 mg tablet Take 1 tablet (70 mg total) by mouth every 7 days Take in the morning with a full glass of water, on an empty stomach, and do not take anything else by mouth or lie down for the next 30 min. Active cetirizine (ZyrTEC) 10 mg tablet Take 1 tablet (10 mg total) by mouth daily Active atorvastatin (LIPITOR) 20 mg tablet Take 1 tablet (20 mg total) by mouth daily Active biotin 1 mg tablet Take 1 tablet (1,000 mcg total) by mouth daily Active levothyroxine (SYNTHROID) 50 mcg tablet Take 1 tablet (50 mcg total) by mouth teacher early childhood development before breakfast Active acidophilus-pe ctin, citrus 100 million cell-10 mg capsule Take by mouth Active apixaban (Eliquis) 5 mg tablet Take 1 tablet by mouth twice daily 180 tablet 1 01/21/20 25 Active apixaban (ELIQUIS) 5 mg tablet Take 1 tablet (5 mg total) by mouth 2 (two) times a day 60 tablet 6 07/10/20 24 025 Discontinued Active Problems Problem Noted Date Diagnosed Date Cardiac pacemaker in situ 04/24/2023 Overview (04/26/2023): Biotronik Edora Dual Pacemaker. Dx; Symptomatic Bradycardia. DOI 04/18/2023- [facility]. [facility]. Biotronik remote monitoring. Coronary artery disease invo lving [place] coronary artery of [place] heart without angina pectoris 08/08/2017 History of coronary artery stent placement 08/08 Primary hypothyroidism 05/02/2017 Nontoxic multinodular goiter 05/02/2017 Candidiasis of vulva and vagina 09/19/2006 Chronic maxillary sinusitis 09/19/2006 Malignant neoplasm of upper- outer quadrant of left breast in female, estrogen receptor positive 09/28/1993 Cancer Staging:Pathologic stage from 09/28/1993: pT2, pN0, cM0, G2, ER+, MA+, HER2: Unknown - Signed by Juan Quinn MD on 01/08/2019 Clinical: Unsigned Encounters Date Type Department Care Team Description 12/30/2024 9:15 AM CDT Ancillary Procedure [facility] Cardiology [address] [place] [id number] Cardiac pacemaker in situ [Z95.0] (Primary Dx); Sinus bradycardia from Last 3 Months Immunizations Immunization Administration Dates Next Due Influenza, Unspecified 05/30/2018 Surgical History Surgery Date Site/Laterality Comments BREAST BIOPSY BREAST RECONSTRUCTION MASTECTOMY CARDIAC SURGERY COLONOSCOPY APPENDECTOMY HYSTERECTOMY OOPHORECTOMY BREAST IMPLANT REMOVAL 07/08/2019 Left excision and removal saline left breast capsule and implant CATARACT EXTRACTION 2019 Medical History Medical History Date Comments Coronary artery disease Breast cancer (HCC) Myocardial infarction (HCC) Hypercholesteremia Osteoporosis Cataract 2020 Heart disease 12/05/2015 Thyroid disease 1980 Peptic ulceration 1960 Family History Medical History Relation Name Comments Heart attack Father Fritz Aparicio Myocardial in farction; Cause of : Myocardial infarction Heart disease Father Fritz Aparicio Heart attack Mother Jennifer Aparicio Heart disease Mother Jennifer Aparicio Other Mother Jennifer Aparicio Unknow n; Cause of : Unknown Relation Name Status Comments Father Fritz Aparicio (Age 82) Mother Jennifer Aparicio (Age 76) Social History Tobacco Use Types Packs/Day Years Used Date Smoking Tobacco: Never Smokeless Tobacco: Never Tobacco Cessation:Counseling Given: Not Answered Alcohol Use Standard Drinks/Week Comments Not Currently 0 (1 standard drink = 0.6 oz pur e alcohol) PHQ-2 Answer Date Recorded PHQ-2 Total Score (If total score is 3 or more points, staff should administer the PHQ-9) 0 12/09/2019 Comments Unknown Sex and Gender Information Value Date Recorded Sex Assigned at Not on file Legal Sex Female 12:23 PM CITY ENGINEER Gender Identity Female 02/02/2023 12:55 PM CDT Sexual Orientation Straight 02/02/2023 12 :55 PM CDT Obstetrics History Last Filed Vital Signs Vital Sign Reading Time Taken Comments Blood Pressure 144/76 07/10/2024 1:08 PM CITY ENGINEER Pulse 78 07/10/2024 1:08 PM CITY ENGINEER Temperature 36.7 C (98.1 F) 07/01/2019 12:28 PM CITY ENGINEER Respiratory Rate 16 01/08/2019 9:23 AM CDT Oxygen Saturation 99% 07/10/2024 1:08 PM CITY ENGINEER Inhaled Oxygen Concentration - - Weight 69.6 kg (153 lb 6.4 oz) 07/10/2024 1:08 P M CITY ENGINEER Height 162.6 cm (5' 4) 07/10/2024 1:08 PM CITY ENGINEER Body Mass Index 26.33 07/10/2024 1:08 PM CITY ENGINEER Plan of Treatment Health Maintenance Due Date Last Done Comments Osteoporosis Screening-Bone Density Scan 1944 DTaP/Tdap/Td Vaccine (1 - Tdap) 11/28/1955 Hepatitis B Screening 1962 Pneumococcal vaccine 65+ (1 of 1 - PCV) 1994 Zoster Vaccine (1 of 2) 1994 Well Visit 65+ 2009 Depression Screening 12/08/2020 12/09/2019, 05/02/20 17 Fall Risk Assessment 12/08/2020 12/09/2019 Influenza Vaccine (Season Ended) 2025 06/18/2018, 06/13/2018, 05/30/2018, Additional history exists Procedures Procedure Name Priority Date/Time Associated Diagnosis Comments DEVICE CHECK - REMOTE Routine 12/30/2024 10:29 AM CDT Sinus bradycardia from Last 3 Months Results * DEVICE CHECK - REMOTE (12/30/2024 10:29 AM CDT) Anatomical Region Laterality Modality Other Narrative 01/09/2025 10:38 AM CDT Biotronik Edora Dual Pacemaker. Dx; Symptomatic Bradycardia. DOI 04/18/2023-[facility]. Biotronik remote monitoring. Routine DDD Pacemaker Remote. Transmission attached. Battery status-Ok, 85% remaining to NED. Stable lead impedances, pacing and sensing thresholds. Presenting rhythm: AP-VS. AP-92 %, MOLDED CANDLES WICKER-10%. No AT/AF episodes noted. No Ventricular tachy arrhythmias detected. Medication: Eliquis, ASA, Lipitor. Office pacemaker f/u 09/23/2025. Follow up: Biotronik remote 04/07/2025. Andie Lam RN Terrell Ashton MD [facility] PROC EDURES Final Result from Last 3 Months Insurance MEDICARE [employer] [place] MEDICARE [facility] [place] MEDICARE [place] [id number] Care Teams Hatchery Attendant Relationship Specialty Start Date End Date Nafisa Quinn MD [address] [facility] [address] [place] [address] PCP - General Family Medicine 02/07/18
--- OUTSIDE RECORDS SUMMARY | 2025-02-11 09:20 | XMS_ITS | Referral Summary ---
Author Organization [facility] [address] Address [address] [place] [address] Care Team Providers Care Medical Equipment Repair Technician Name Role Phone Nafisa Quinn MD Primary Care Provider Encounters Date Type Department Care Team Description 12/30/2024 9:15 AM CDT Ancillary Procedure [facility] Medical [facility] Cardiology [address] [place] [phone] Cardiac pacemaker in situ [Z95.0] (Primary Dx); Sinus bradycardia from Last 3 Months Allergies No known active allergies Medications omeprazole (PriLOSEC) 20 mg capsule take 1 capsule by oral route every day before a meal 0 0 01/06/20 16 Active aspirin (ASPIR-81) 81 mg tablet take 1 Tablet by oral route every day 0 0 01/06/20 16 Active MULTIVIT-PREVENTION COORDINATOR ALS/FERROUS FUM (MULTI VITAMIN ORAL) Take by [...] 1 tablet (50 mcg total) by mouth pipe organ installer before breakfast Active acidophilus-pe ctin, citrus 100 [...] Dual Pacemaker. Dx; Symptomatic Bradycardia. DOI 04/18/2023- [facility]. [employer]. Biotronik remote monitoring. Coronary artery disease invo lving [place] coronary artery of [place] heart without angina pectoris 08/08/2017 History of coronary artery stent placement 08/08 Primary hypothyroidism 05/02/2017 Nontoxic multinodular goiter 05/02/2017 Candidiasis of vulva and vagina 09/19/2006 Chronic maxillary sinusitis 09/19/2006 Malignant neoplasm of upper- outer quadrant of left breast in female, estrogen receptor positive 09/28/1993 Cancer Staging:Pathologic stage from 09/28/1993: pT2, pN0, cM0, G2, ER+, AK+, HER2: Unknown - Signed by Juan Quinn MD on 01/08/2019 Clinical: Unsigned Immunizations Immunization Administration Dates Next Due Influenza, Unspecified 05/30/2018 Social History Tobacco Use Types Packs/Day Years [...] on file Legal Sex Female 12:23 PM DINKEY BRAKEMAN Gender Identity Female 02/02/2023 12:55 PM CDT Sexual Orientation Straight 02/02/2023 12 :55 PM CDT Last Filed Vital Signs Vital Sign Reading Time Taken Comments Blood Pressure 144/76 07/10/2024 1:08 PM DINKEY BRAKEMAN Pulse 78 07/10/2024 1:08 PM DINKEY BRAKEMAN Temperature 36.7 C (98.1 F) 07/01/2019 12:28 PM DINKEY BRAKEMAN Respiratory Rate 16 01/08/2019 9:23 AM CDT Oxygen Saturation 99% 07/10/2024 1:08 PM DINKEY BRAKEMAN Inhaled Oxygen Concentration - - Weight 69.6 kg (153 lb 6.4 oz) 07/10/2024 1:08 P M DINKEY BRAKEMAN Height 162.6 cm (5' 4) 07/10/2024 1:08 PM DINKEY BRAKEMAN Body Mass Index 26.33 07/10/2024 1:08 PM DINKEY BRAKEMAN Plan of Treatment Not on file Procedures Procedure Name Priority Date/Time Associated Diagnosis Comments DEVICE CHECK - REMOTE Routine 12/30/2024 10:29 AM CDT Sinus bradycardia from Last 3 Months Results * DEVICE CHECK - REMOTE (12/30/2024 10:29 AM CDT) Anatomical Region Laterality Modality Other Narrative 01/09/2025 10:38 AM CDT Biotronik Edora Dual Pacemaker. Dx; Symptomatic Bradycardia. DOI 04/18/2023-[facility]. [employer]. Biotronik remote monitoring. Routine DDD Pacemaker Remote. Transmission attached. Battery status-Ok, 85% remaining to NED. Stable lead impedances, pacing and sensing thresholds. Presenting rhythm: AP-VS. AP-92 %, LEAF CONDITIONER HELPER-10%. No AT/AF episodes noted. No Ventricular tachy arrhythmias detected. Medication: Eliquis, ASA, Lipitor. Office pacemaker f/u 09/23/2025. Follow up: Biotronik remote 04/07/2025. Andie Lam, JENN Terrell Ashton MD [facility] Final Result from Last 3 Months Insurance MEDICARE [facility] MEDICARE [facility] MEDICARE [facility] Address: [facility] [id number] [place] [phone] [facility] Care Teams Medical Equipment Repair Technician Relationship Specialty Start Date End Date Nafisa Quinn MD [address] [facility] [address] [place] [address] PCP - General Family Medicine 02/07/18
--- OUTSIDE RECORDS SUMMARY | 2025-02-11 09:20 | XMS_ITS | Patient Health Record ---
Author Organization [facility] ([address]) Address [address] [place] [address] Care Team Providers Care Brush Operator Name Role Phone Dr. Nafisa Wallis Primary Care Provider Un available Frieda Nixon Unavailable [phone] Allergies No Known Allergies Reason For Referral No Information Medications Medication SIG (Take, Route, Frequency, Duration) Notes Start Date End Date Status SIT (TRADITIONAL) variable per schedule SC per schedule Active PRAVASTATIN 10 mg 1 tab(s) orally once a day (at bedtime) Active ASPIRIN 81 mg 1 tab(s) orally once a day Active LEVOTHYROXINE 50 mcg (0.05 mg) 1 tab(s) orally once a day Active Fosamax 70 MG 1 tab(s) orally once a week Active PRILOSEC OTC 20 mg 1 tab(s) orally once a day Active Atorvastatin Calcium 20 MG 1 tab(s) orally once a day Active ATORVASTATIN 20 mg 1 tab(s) orally once a day Active Coreg 3.125 MG 1 tab(s) orally 2 times a day Not-Taking PATADAY 0.2% 1 gtt in each affected eye once a day for 10 day(s) Active Coenzyme Q10 300 MG 1 cap(s) orally once a day Active GARLIC orally Daily Active Cetirizine HCl 10 MG 1 tab(s) orally once a day 12/13/2021 Active FOSAMAX 70 mg 1 tab(s) orally once a week Active ZyrTEC Allergy 10 MG 1 tab(s) orally once a day Active COREG 3.125 mg 1 tab(s) orally 2 times a day Active Triamcinolone Acetonide 0.1 % 1 akash applied topically 2 times a day, prn for 30 day(s) Active COQ10 300 mg 1 cap(s) orally once a day Active Ipratropium Boaz 21 MCG/INH 2 SPRAY(S) INTRANASALLY 3 TIMES A DAY for 30 DAY(S) *Please review and pick correct strength-formula tion from [employer] options. If intended option is not shown, discontinue and re-order from Quick Search* 12/13/2021 Active CETIRIZINE HYDROCHLORIDE 10 mg 1 tab(s) orally once a day Active Garlic ORALLY DAILY *Please review and pick correct strength-formula tion from [employer] options. If intended option is not shown, discontinue and re-order from Quick Search* Active EpiPen 2-Parker 0.3 MG/0.3ML 0.3 mg intramuscularly once for 1 dose(s) Active Azelastine HCl 137 MCG/SPRAY 2 spray(s) intranasally 2 times a day for 30 day(s) Active ZYRTEC 10 mg 1 tab(s) orally once a day Active TRIAMCINOLONE ACETONIDE TOPICAL 0.1% 1 akash applied topically 2 times a day, prn for 30 day(s) Active EPINEPHRINE AUTO-INJECTOR 0.3 mg as directed intramuscularly once for 1 day Active IPRATROPIUM BROMIDE NASAL 21 mcg/inh 2 spray(s) intranasally 3 times a day for 30 day(s) 12/13/2021 Active SIT (TRADITIONAL) variable per schedule SC per schedule for to be determined Active Glucosamine Sulfate 500 MG 1 tab(s) orally 3 times a day Active GARLIC orally Daily Active PAZEO 0.7% 1 gtt in each affected eye once a day Active EPIPEN 2-PARKER 0.3 mg 0.3 mg intramuscularly once for 1 dose(s) Active Vitamin D3 50 MCG (2000 UT) 1 tab(s) orally once a day Active AZELASTINE HYDROCHLORIDE NASAL 137 mcg/inh 2 spray(s) intranasally 2 times a day for 30 day(s) Active Fiber Choice 1.5 GM 2 tab(s) chewed 3 times a day Active FIBER CHOICE 1.5 g 2 tab(s) chewed 3 times a day Active Fish Oil 1200 MG 1 cap(s) orally 3 times a day Active GLUCOSAMINE 500 mg 1 tab(s) orally 3 times a day Active Biotin 1000 MCG 1 tab(s) orally once a day Active BIOTIN 1000 mcg 1 tab(s) orally once a day Active Pravastatin Sodium 10 MG 1 tab(s) orally once a day (at bedtime) Active VITAMIN D3 2000 intl units 1 tab(s) orally once a day Active Aspirin 81 MG 1 tab(s) orally once a day Active Levothyroxine Sodium 50 MCG 1 tab(s) orally once a day Active FISH OIL 1200 mg 1 cap(s) orally 3 times a day Active PriLOSEC OTC 20 MG 1 tab(s) orally once a day Active Pataday 0.2 % 1 gtt in each affected eye once a day for 10 day(s) Active Immunizations Vaccine Route Administration Date Status Comme nts Flucelvax Unknown 09/27/2019 Administered Fluzone Quadrivalent Unknown 07/09/2017 Administered Influenza Unknown 06/05/2016 Administered Influenza Unknown 06/18/2018 Administered Influenza Unknown 10/01/2018 Others NOC Influenza-Fluzone Unknown 06/10/2019 Administered NOC Pneumovax 23 Unknown 10/03/2017 Refused NOC Prevnar 13 Unknown 06/10/2019 Administered Pneumovax 23 Unknown 06/25/2020 Administered Social History Tobacco Use: Social History Observation Description Date Details (start date - stop date) Never Smoker NA - NA Smoking Smart Form: Question Answer Notes Are you a: never smoker Tobacco Control (Standard) Question Answer Notes Tobacco use: Nonsmoker Section Notes: 6+ 6+ 6+ 6+ 6+ 6+ 6+ 6+ 6+ Problems Problem Type SNOMED Code ICD Code Onset Dates Problem Status W/U Status Risk Notes Problem Chronic allergic conjunctivitis (46943491) Chronic allergic conjunctivitis NOS (372.14) Active confirmed Problem Allergic rhinitis due to allergen (64370120) Allergic rhinitis due to allergen (477.8) Active confirmed Problem Chronic allergic conjunctivitis (43786028) Other chronic allergic conjunctivitis (H10.45) Active confirmed Problem Essential hypertension (32543907) Essential (primary) hypertension (I10) Active confirmed Problem Acute upper respiratory infection (99278942) Acute upper respiratory infection, unspecified (J06.9) Active confirmed Problem Allergic rhinitis caused by pollen (disorder) (46764552) Allergic rhinitis due to pollen (J30.1) Active confirmed Problem Allergic rhinitis caused by animal hair and dander (352625614310913) Allergic rhinitis due to animal (cat) (dog) hair and dander (J30.81) Active confirmed Problem Allergic rhinitis (91743178) Other allergic rhinitis (J30.89) Active confirmed Problem Cough (67094608) Cough (R05) Active confirmed Problem Allergic rhinitis caused by pollen (disorder) (79978015) Allergic rhinitis due to pollen (J30.1) Active confirmed Problem Allergic rhinitis caused by animal hair and dander (195830511857821) Allergic rhinitis due to animal (cat) (dog) hair and dander (J30.81) Active confirmed Problem Allergic rhinitis (15116129) Other allergic rhinitis (J30.89) Active confirmed Problem Chronic allergic conjunctivitis (41857556) Other chronic allergic conjunctivitis (H10.45) Active confirmed Vital Signs Oximetry 99 % 04/02/2024 Blood pressure diastolic 82 mm Hg 04/02/2024 Height 64 in 04/02/2024 Blood pressure systolic 126 mm Hg 04/02/2024 Weight 150.6 lbs 04/02/2024 BMI 25.85 kg/m2 04/02/2024 Encounters Encounter Location Date Provider Diagnosis [facility] [address] [phone] 02/20/2024 Frieda Nixon Allergic rhinitis du e to pollen J30.1 ; Allergic rhinitis due to animal (cat) (dog) hair and dander J30.81 ; Other allergic rhinitis J30.89 and Other chronic allergic conjunctivitis H10.45 [facility] [address] [place] [phone] 03/05/2024 Frieda Nixon Allergic rhinitis du e to pollen J30.1 ; Allergic rhinitis due to animal (cat) (dog) hair and dander J30.81 ; Other allergic rhinitis J30.89 and Other chronic allergic conjunctivitis H10.45 [facility] [address] [place] [phone] 03/19/2024 Frieda Nixon Allergic rhinitis du e to pollen J30.1 ; Allergic rhinitis due to animal (cat) (dog) hair and dander J30.81 ; Other allergic rhinitis J30.89 and Other chronic allergic conjunctivitis H10.45 [facility] [address] [place] [address] [employer] [address] [place] [phone] 04/02/2024 Frieda Nixon Allergic rhinitis du e to pollen J30.1 ; Other chronic allergic conjunctivitis H10.45 ; Allergic rhinitis due to animal (cat) (dog) hair and dander J30.81 and Other allergic rhinitis J30.89 [facility] [address] [place] [phone] 04/16/2024 Frieda Nixon Allergic rhinitis du e to pollen J30.1 ; Allergic rhinitis due to animal (cat) (dog) hair and dander J30.81 ; Other allergic rhinitis J30.89 and Other chronic allergic conjunctivitis H10.45 [facility] [address] [place] [address] [employer] [address] [phone] 04/30/2024 Frieda Nixon Allergic rhinitis du e to pollen J30.1 ; Allergic rhinitis due to animal (cat) (dog) hair and dander J30.81 ; Other allergic rhinitis J30.89 and Other chronic allergic conjunctivitis H10.45 [facility] [address] [place] [address] [employer] [address] [phone] 05/14/2024 Frieda Nixon Allergic rhinitis du e to pollen J30.1 ; Allergic rhinitis due to animal (cat) (dog) hair and dander J30.81 ; Other allergic rhinitis J30.89 and Other chronic allergic conjunctivitis H10.45 [facility] [address] [place] [address] [employer] [address] [address] 05/28/2024 Frieda Nixon Allergic rhinitis du e to pollen J30.1 ; Allergic rhinitis due to animal (cat) (dog) hair and dander J30.81 ; Other allergic rhinitis J30.89 and Other chronic allergic conjunctivitis H10.45 [facility] [address] [place] [address] [employer] [address] [place] [phone] 06/11/2024 Frieda Nixon Allergic rhinitis du e to pollen J30.1 ; Allergic rhinitis due to animal (cat) (dog) hair and dander J30.81 ; Other allergic rhinitis J30.89 and Other chronic allergic conjunctivitis H10.45 [facility] [address] [place] [address] [employer] [address] [phone] 06/25/2024 Frieda Nixon Allergic rhinitis du e to pollen J30.1 ; Allergic rhinitis due to animal (cat) (dog) hair and dander J30.81 ; Other allergic rhinitis J30.89 and Other chronic allergic conjunctivitis H10.45 [facility] [address] [place] [address] [employer] [address] [phone] 07/09/2024 Frieda Nixon Allergic rhinitis du e to pollen J30.1 ; Allergic rhinitis due to animal (cat) (dog) hair and dander J30.81 ; Other allergic rhinitis J30.89 and Other chronic allergic conjunctivitis H10.45 [facility] [address] [place] [address] [employer] [address] [phone] 08/18/2024 Frieda Nixon Allergic rhinitis du e to pollen J30.1 ; Allergic rhinitis due to animal (cat) (dog) hair and dander J30.81 ; Other allergic rhinitis J30.89 and Other chronic allergic conjunctivitis H10.45 [facility] [address] [place] [address] [employer] [address] [address] 09/04/2024 Frieda Nixon Allergic rhinitis du e to pollen J30.1 ; Allergic rhinitis due to animal (cat) (dog) hair and dander J30.81 ; Other allergic rhinitis J30.89 and Other chronic allergic conjunctivitis H10.45 [facility] [address] [place] [address] [employer] [address] [address] 09/17/2024 Frieda Nixon Allergic rhinitis du e to pollen J30.1 ; Allergic rhinitis due to animal (cat) (dog) hair and dander J30.81 ; Other allergic rhinitis J30.89 and Other chronic allergic conjunctivitis H10.45 [facility] [address] [place], [place] [address] [address] [place] [phone] 10/01/2024 Frieda Nixon Allergic rhinitis du e to pollen J30.1 ; Allergic rhinitis due to animal (cat) (dog) hair and dander J30.81 ; Other allergic rhinitis J30.89 and Other chronic allergic conjunctivitis H10.45 [facility] [address] [place] [address] [employer] [address] [address] 10/08/2024 Frieda Nixon Allergic rhinitis du e to pollen J30.1 ; Allergic rhinitis due to animal (cat) (dog) hair and dander J30.81 ; Other allergic rhinitis J30.89 and Other chronic allergic conjunctivitis H10.45 [facility] [address] [place] [address] [employer] [address] [phone] 10/16/2024 Frieda Nixon Allergic rhinitis du e to pollen J30.1 ; Allergic rhinitis due to animal (cat) (dog) hair and dander J30.81 ; Other allergic rhinitis J30.89 and Other chronic allergic conjunctivitis H10.45 [facility] [address] [place] [address] [employer] [address] [address] 10/30/2024 Frieda Nixon Allergic rhinitis du e to pollen J30.1 ; Allergic rhinitis due to animal (cat) (dog) hair and dander J30.81 ; Other allergic rhinitis J30.89 and Other chronic allergic conjunctivitis H10.45 [facility] [address] [place] [address] [employer] [address] [address] 11/12/2024 Frieda Nixon Allergic rhinitis du e to pollen J30.1 ; Allergic rhinitis due to animal (cat) (dog) hair and dander J30.81 ; Other allergic rhinitis J30.89 and Other chronic allergic conjunctivitis H10.45 [facility] [address] [place] [address] [employer] [address] [address] 11/26/2024 Frieda Nixon Allergic rhinitis du e to pollen J30.1 ; Allergic rhinitis due to animal (cat) (dog) hair and dander J30.81 ; Other allergic rhinitis J30.89 and Other chronic allergic conjunctivitis H10.45 [facility] [address] [place], [place] [address] [address] [place] [phone] 12/10/2024 Frieda Nixon Allergic rhinitis du e to pollen J30.1 ; Allergic rhinitis due to animal (cat) (dog) hair and dander J30.81 ; Other allergic rhinitis J30.89 and Other chronic allergic conjunctivitis H10.45 [facility] [address] [place] [phone] 12/24/2024 Frieda Nixon Allergic rhinitis du e to pollen J30.1 ; Allergic rhinitis due to animal (cat) (dog) hair and dander J30.81 ; Other allergic rhinitis J30.89 and Other chronic allergic conjunctivitis H10.[address] [address] 01/07/2025 Frieda Nixon Allergic rhinitis du e to pollen J30.1 ; Allergic rhinitis due to animal (cat) (dog) hair and dander J30.81 ; Other allergic rhinitis J30.89 and Other chronic allergic conjunctivitis H10.[address] [phone] 01/21/2025 Frieda Nixon Allergic rhinitis du e to pollen J30.1 ; Allergic rhinitis due to animal (cat) (dog) hair and dander J30.81 ; Other allergic rhinitis J30.89 and Other chronic allergic conjunctivitis H10.[address] [address] 02/04/2025 Frieda Nixon Allergic rhinitis du e to pollen J30.1 ; Allergic rhinitis due to animal (cat) (dog) hair and dander J30.81 ; Other allergic rhinitis J30.89 and Other chronic allergic conjunctivitis H10.45 Assessments Encounter Date Diagnosis (ICD Code) Assessment Notes Treatment Notes Treatment Clinical Notes Section Notes 02/20/2024 Allergic rhinitis due to pollen (ICD-10 - J30.1) 03/05/2024 Allergic rhinitis due to pollen (ICD-10 - J30.1) 03/19/2024 Allergic rhinitis due to pollen (ICD-10 - J30.1) 04/02/2024 Other chronic allergic conjunctivitis (ICD-10 - H10.45) I encouraged allergy avoidance measures and meds as above. If symptoms persist, consider adding additional medications including intraocular antihistamine/mast cell stabilizer, PRN 04/02/2024 Allergic rhinitis due to pollen (ICD-10 - J30.1) Jennifer clearly suffers from atopic disease based upon history and our prior skin testing. Accordingly, we have introduced a new, aggressive medication regimen, discussed nasal washes and allergy-specific avoidance measures. She has seen much improvement with SCIT and may continue indefinitely since has received immunonotherapy multiple times in the past with return of congestion when discontinuing. Increase shot frequency during peak seasons. 04/16/2024 Allergic rhinitis due to pollen (ICD-10 - J30.1) 04/30/2024 Allergic rhinitis due to pollen (ICD-10 - J30.1) 05/14/2024 Allergic rhinitis due to pollen (ICD-10 - J30.1) 05/28/2024 Allergic rhinitis due to pollen (ICD-10 - J30.1) 06/11/2024 Allergic rhinitis due to pollen (ICD-10 - J30.1) 06/25/2024 Allergic rhinitis due to pollen (ICD-10 - J30.1) 07/09/2024 Allergic rhinitis due to pollen (ICD-10 - J30.1) 08/18/2024 Allergic rhinitis due to pollen (ICD-10 - J30.1) 09/04/2024 Allergic rhinitis due to pollen (ICD-10 - J30.1) 09/17/2024 Allergic rhinitis due to pollen (ICD-10 - J30.1) 10/01/2024 Allergic rhinitis due to pollen (ICD-10 - J30.1) 10/08/2024 Allergic rhinitis due to pollen (ICD-10 - J30.1) 10/16/2024 Allergic rhinitis due to pollen (ICD-10 - J30.1) 10/30/2024 Allergic rhinitis due to pollen (ICD-10 - J30.1) 11/12/2024 Allergic rhinitis due to pollen (ICD-10 - J30.1) 11/26/2024 Allergic rhinitis due to pollen (ICD-10 - J30.1) 12/10/2024 Allergic rhinitis due to pollen (ICD-10 - J30.1) 12/24/2024 Allergic rhinitis due to pollen (ICD-10 - J30.1) 01/07/2025 Allergic rhinitis due to pollen (ICD-10 - J30.1) 01/21/2025 Allergic rhinitis due to pollen (ICD-10 - J30.1) 02/04/2025 Allergic rhinitis due to pollen (ICD-10 - J30.1) 02/04/2025 Allergic rhinitis due to animal (cat) (dog) hair and dander (ICD-10 - J30.81) 01/21/2025 Allergic rhinitis due to animal (cat) (dog) hair and dander (ICD-10 - J30.81) 01/07/2025 Allergic rhinitis due to animal (cat) (dog) hair and dander (ICD-10 - J30.81) 12/24/2024 Allergic rhinitis due to animal (cat) (dog) hair and dander (ICD-10 - J30.81) 12/10/2024 Allergic rhinitis due to animal (cat) (dog) hair and dander (ICD-10 - J30.81) 11/26/2024 Allergic rhinitis due to animal (cat) (dog) hair and dander (ICD-10 - J30.81) 11/12/2024 Allergic rhinitis due to animal (cat) (dog) hair and dander (ICD-10 - J30.81) 10/30/2024 Allergic rhinitis due to animal (cat) (dog) hair and dander (ICD-10 - J30.81) 10/16/2024 Allergic rhinitis due to animal (cat) (dog) hair and dander (ICD-10 - J30.81) 10/08/2024 Allergic rhinitis due to animal (cat) (dog) hair and dander (ICD-10 - J30.81) 10/01/2024 Allergic rhinitis due to animal (cat) (dog) hair and dander (ICD-10 - J30.81) 09/17/2024 Allergic rhinitis due to animal (cat) (dog) hair and dander (ICD-10 - J30.81) 09/04/2024 Allergic rhinitis due to animal (cat) (dog) hair and dander (ICD-10 - J30.81) 08/18/2024 Allergic rhinitis due to animal (cat) (dog) hair and dander (ICD-10 - J30.81) 07/09/2024 Allergic rhinitis due to animal (cat) (dog) hair and dander (ICD-10 - J30.81) 06/25/2024 Allergic rhinitis due to animal (cat) (dog) hair and dander (ICD-10 - J30.81) 06/11/2024 Allergic rhinitis due to animal (cat) (dog) hair and dander (ICD-10 - J30.81) 05/28/2024 Allergic rhinitis due to animal (cat) (dog) hair and dander (ICD-10 - J30.81) 05/14/2024 Allergic rhinitis due to animal (cat) (dog) hair and dander (ICD-10 - J30.81) 04/30/2024 Allergic rhinitis due to animal (cat) (dog) hair and dander (ICD-10 - J30.81) 04/16/2024 Allergic rhinitis due to animal (cat) (dog) hair and dander (ICD-10 - J30.81) 04/02/2024 Allergic rhinitis due to animal (cat) (dog) hair and dander (ICD-10 - J30.81) Recommend medications, allergen avoidance measures, and SCIT as above 03/19/2024 Allergic rhinitis due to animal (cat) (dog) hair and dander (ICD-10 - J30.81) 03/05/2024 Allergic rhinitis due to animal (cat) (dog) hair and dander (ICD-10 - J30.81) 02/20/2024 Allergic rhinitis due to animal (cat) (dog) hair and dander (ICD-10 - J30.81) 02/20/2024 Other allergic rhinitis (ICD-10 - J30.89) 03/05/2024 Other allergic rhinitis (ICD-10 - J30.89) 03/19/2024 Other allergic rhinitis (ICD-10 - J30.89) 04/02/2024 Other allergic rhinitis (ICD-10 - J30.89) Recommend medications, allergen avoidance measures, and SCIT as above 04/16/2024 Other allergic rhinitis (ICD-10 - J30.89) 04/30/2024 Other allergic rhinitis (ICD-10 - J30.89) 05/14/2024 Other allergic rhinitis (ICD-10 - J30.89) 05/28/2024 Other allergic rhinitis (ICD-10 - J30.89) 06/11/2024 Other allergic rhinitis (ICD-10 - J30.89) 06/25/2024 Other allergic rhinitis (ICD-10 - J30.89) 07/09/2024 Other allergic rhinitis (ICD-10 - J30.89) 08/18/2024 Other allergic rhinitis (ICD-10 - J30.89) 09/04/2024 Other allergic rhinitis (ICD-10 - J30.89) 09/17/2024 Other allergic rhinitis (ICD-10 - J30.89) 10/01/2024 Other allergic rhinitis (ICD-10 - J30.89) 10/08/2024 Other allergic rhinitis (ICD-10 - J30.89) 10/16/2024 Other allergic rhinitis (ICD-10 - J30.89) 10/30/2024 Other allergic rhinitis (ICD-10 - J30.89) 11/12/2024 Other allergic rhinitis (ICD-10 - J30.89) 11/26/2024 Other allergic rhinitis (ICD-10 - J30.89) 12/10/2024 Other allergic rhinitis (ICD-10 - J30.89) 12/24/2024 Other allergic rhinitis (ICD-10 - J30.89) 01/07/2025 Other allergic rhinitis (ICD-10 - J30.89) 01/21/2025 Other allergic rhinitis (ICD-10 - J30.89) 02/04/2025 Other allergic rhinitis (ICD-10 - J30.89) 02/04/2025 Other chronic allergic conjunctivitis (ICD-10 - H10.45) 01/21/2025 Other chronic allergic conjunctivitis (ICD-10 - H10.45) 01/07/2025 Other chronic allergic conjunctivitis (ICD-10 - H10.45) 12/24/2024 Other chronic allergic conjunctivitis (ICD-10 - H10.45) 12/10/2024 Other chronic allergic conjunctivitis (ICD-10 - H10.45) 11/26/2024 Other chronic allergic conjunctivitis (ICD-10 - H10.45) 11/12/2024 Other chronic allergic conjunctivitis (ICD-10 - H10.45) 10/30/2024 Other chronic allergic conjunctivitis (ICD-10 - H10.45) 10/16/2024 Other chronic allergic conjunctivitis (ICD-10 - H10.45) 10/08/2024 Other chronic allergic conjunctivitis (ICD-10 - H10.45) 10/01/2024 Other chronic allergic conjunctivitis (ICD-10 - H10.45) 09/17/2024 Other chronic allergic conjunctivitis (ICD-10 - H10.45) 09/04/2024 Other chronic allergic conjunctivitis (ICD-10 - H10.45) 08/18/2024 Other chronic allergic conjunctivitis (ICD-10 - H10.45) 07/09/2024 Other chronic allergic conjunctivitis (ICD-10 - H10.45) 06/25/2024 Other chronic allergic conjunctivitis (ICD-10 - H10.45) 06/11/2024 Other chronic allergic conjunctivitis (ICD-10 - H10.45) 05/28/2024 Other chronic allergic conjunctivitis (ICD-10 - H10.45) 05/14/2024 Other chronic allergic conjunctivitis (ICD-10 - H10.45) 04/30/2024 Other chronic allergic conjunctivitis (ICD-10 - H10.45) 04/16/2024 Other chronic allergic conjunctivitis (ICD-10 - H10.45) 02/20/2024 Other chronic allergic conjunctivitis (ICD-10 - H10.45) 03/19/2024 Other chronic allergic conjunctivitis (ICD-10 - H10.45) 03/05/2024 Other chronic allergic conjunctivitis (ICD-10 - H10.45) 04/02/2024 Other Plan Of Treatment Next Appt Details Provider Name:Frieda scruggs, 02/18/2025 08:40:00 AM, [address] [facility], [address], [address], Insurance Providers Payer Name Payer Address Payer Phone Subscriber Number Group Number Insured Name Patient Relationship to Insured Coverage Start Date Coverage End Date [employer] (Medicare) Attention Claims [address] [place] [address] [id number] Jennifer Rivera Self - [place] [address] [id number] Jennifer Rivera Self - patient is the insured Medical (General) History Medical History History ICD Code Breast Cancer - 1993 treated with chemot herapy DVT - left calf secondary to immobilizat ion due to shoulder injury Myocardial Infarction Surgical History Surgery Date(Month/Year) Hysterectomy 1989 Modified Radical Mastectomy 1993 Appendectomy 1960 Stent placement 11/2015 pacemaker 2022 Hospitalization History Reason Date(Month/Year) same as above
--- OUTSIDE RECORDS SUMMARY | 2025-02-11 09:20 | XMS_ITS | Clinical Summary ---
Author Organization [facility] Address [address] [place] [address] Care Team Providers Care Federal Agent Name Role Phone Unavailable Primary Care Provider Unavailabl e Source Comments [facility],non-owned Affiliates and Associated Physician Practices is amultiple site organization consisting of ambulatory clinics and hospital sitesin [place], [place], [place]. This disclosure is being madepursuant to the Care Everywhere program and may not contain all information available regarding this patient. 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 Gender Identity Not on file Sexual Orientation Not on file Plan of Treatment Health Maintenance Due Date Last Done Comments BONE DENSITY TESTING 1945 MEDICARE AWV 12 MONTHS 1945 DTAP/TDAP/TD VACCINES (1 - Tdap) 11/28/1963 PNEUMOCOCCAL VACCINE 50+ (1 of 1 - PCV) 1994 ZOSTER VACCINE (1 of 2) 1994 Respiratory Syncytial Virus (RSV) Vaccine Pt: or over 60 yrs (1 - 1-dose 75+ series) 11/28/2019 COVID-19 VACCINE ( - 2023-2 5 season) 2024 DEPRESSION SCREENING 08/27/2024 INFLUENZA VACCINE (Season Ended) 2025 HEPATITIS B VACCINE Aged Out No longe r eligible based on patient's age to complete this topic HIB VACCINE Aged Out No longer eligi ble based on patient's age to complete this topic HPV VACCINE Aged Out No longer eligi ble based on patient's age to complete this topic MENINGOCOCCAL (Group B) VACC INE SHARED DECISION-MAKING Aged Out No longer eligibl e based on patient's age to complete this topic MENINGOCOCCAL GROUPS A/C/Y/W VACCINE Aged Out No longer eligible b ased on patient's age to complete this topic [place] [address] MEDICARE [facility] [place] [phone]
== END 2025-02-11 08:51 | disposition home or self-care (01) ==
PROVIDERS: PCP Family Medicine; Visit Provider Orthopaedic Surgery
DX: M25.562 Pain in left knee (principal)
CPT/HCPCS: 20610; 73701; 77002; Q9966; Q9967

== ENCOUNTER 2025-03-03 12:46 | Outpatient (CLI) | payer MEDICARE, OTHER, SELFPAY ==
--- NOTE | 2025-03-03 12:57 | ECG_ITS ---
Test Date: 2025-03-03 13:01:58 Measurements Intervals [place] Rate: 79 P: 179 WY: 159 QRS: -28 QRSD: 142 T: -23 QT: 368 QTc: 422 Interpretive Statements ELECTRONIC ATRIAL PACEMAKER BORDERLINE LEFT AXIS DEVIATION [QRS AXIS < -20] RIGHT BUNDLE BRANCH BLOCK [120+ ms QRS DURATION, UPRIGHT V1, 40+ ms S IN I/aVL/V4/V5/V6] ABNORMAL ECG No previous ECG available for comparison Electronically Signed On 03-04-2025 07:36:21 CDT by Terrell Ashton M.D.
== END 2025-03-03 12:47 | disposition home or self-care (01) ==
PROVIDERS: PCP Family Medicine; Visit Provider Orthopaedic Surgery
DX: Z95.0 Presence of cardiac pacemaker (principal); I45.10 Unspecified right bundle-branch block
CPT/HCPCS: 93005

== ENCOUNTER 2025-03-09 02:02 | Day surgery (SDC) | payer MEDICARE, OTHER, SELFPAY ==
--- NOTE | 2025-03-02 07:58 | PC.NURSE ---
Report to the Outpatient Waiting Room, entrance under the green pavilion located off [facility], at time __8:30 AM on date ___03/09/25____. Planned Procedure Time: _10:30 AM .? Time changes happen often and if your time is changed the preop area will call you the afternoon before. - You and your visitor will be asked to self-screen and do not enter if you have any COVID symptoms. Please call surgeon if you need to reschedule. - A mask is optional within the hospital at this time. Patients may have clear liquids (water, carbonated beverages, clear teas, apple juice) until 3 hours prior to surgery ((7:30 AM) with a maximum of 20 ounces. - No food from midnight until time of surgery and no smoking, or chewing tobacco (or any form of nicotine). No chewing gum, candy or mints. E Take only the following medications with a SIP of water on the morning of surgery: _LEVOTHYROXINE DO NOT STOP ANY OF YOUR OTHER PRESCRIPTION MEDICATIONS PRIOR TO SURGERY EXCEPT THE FOLLOWING Hold all vitamins and supplements for 3 days per anesthesiologist.LAST DOSE 03/05/25 Medications to discontinue per physician HOLD ELIQUIS [address] MONREAL. ASPIRIN PER DR MONREAL Date to take last dose____03/03/25 ELIQUIS Please no make-up, nail korean, hairspray, perfume, deodorant, or body powder the day of surgery.? No jewelry (including any body piercings) or valuables the day of surgery, leave them at home.? Please take a shower or bath the night before, or the morning of, surgery with an antibacterial soap.? Wear comfortable, loose fitting clothing.? Children are encouraged to wear pajamas. - Jewelry must be removed prior to entering the operating room.? Rings and piercings that are not removed may be cut off. - The hospital will not accept responsibility for valuables.? - Please leave all valuables, including medications, at home the day of surgery. If you are going home after surgery, a licensed drivers license examiner must drive you home.? - NO public transportation without another adult if you receive anesthesia. - We recommend that an adult stay with you for 24 hours following discharge. - We also recommend that you do not drive, make important decision, drink alcoholic beverages, or take any drugs that were not prescribed by your health care provider for at least 24 hours after your discharge time. For Pediatric surgeries, we recommend two adults accompany the child home. Follow any additional instructions given to you from your surgeon. Telephone instructions given to __PATIENT and asked if any additional questions and then verbalized understanding. Patient advised to call surgeon office or pre surgery nurse liaison [phone] if any additional questions.
[2025-03-02 08:20] VITALS: BMI 26.6
--- NOTE | 2025-03-05 08:09 | PM.IMHP ---
H&P: HPI History of Present Illness Date/Time: 03/05/25 08:09 Chief Complaint: Patient is knee pain left. She has catching locking mechanical type symptoms. She has failed conservative treatment remains symptomatic would like to consider knee arthroscopy. Review of Systems Musculoskeletal: Musculoskeletal: Reports arthralgias, Reports joint swelling and Reports stiffness Neurologic: Reports abnormal gait [facility] Past Medical History Medical History Pacemaker Biotronik dual-chamber pacemaker implanted 04/18/2023 for symptomatic bradycardia Orthostasis Sinus bradycardia Heart block AV second degree Hiatal hernia Gastritis GERD (gastroesophageal reflux disease) Mixed hyperlipidemia BMI 28.0-28.9,adult Hypothyroidism (acquired) CAD (coronary artery disease) STEMI November 2015 with normal echocardiogram at that time Vitamin D deficiency Osteopenia Breast cancer Left breast Surgical History Surgical History Status post cataract extraction of both eyes with insertion of intraocular lens History of arthroplasty of finger of right hand (06/2021) Thumb Presence of stent in LAD coronary artery (11/2015) H/O hand surgery History of breast augmentation With subsequent removal of the left breast implant 2018 after became deflated H/O left mastectomy Arthritis of carpometacarpal (CMC) joint of right thumb Right thumb CMC arthroplasty July 25, 2021 Family History Family History Sibling Carcinoma of colon Patient's brother is Sudden Sibling Heart disease Father Heart disease Cerebrovascular accident Mother Heart disease Social History Social History (Updated 02/12/25 @ 08:55 by Cynthia Holland [facility]) Social History: Patient reports that she has been since 1965. Her and her had 3 sons who are all alive and well. 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 She still maintains an active lifestyle and healthy diet. She is a lifelong nonsmoker and does not drink alcohol or use illicit substances. She is independent activities of daily living. Code status: Full code Surrogate decision maker: Smoking status: Never smoker Second hand tobacco smoke exposure: No Alcohol intake: never Substance use: never Substance use type: does not use Do You Feel Safe in your Home?: Yes Lack of Transportation: No Lack of Food: Never True Current Housing: I Have Housing Concerned About Future Housing: No Difficulty Paying Gas/Electric Bills: No Difficulty Paying for Meds: No Currently Unemployed: No Education: Trade/Vocational Certificate Difficulty w/ Childcare or Family Care: No Living arrangements: with family Additional living arrangements comments: [facility] Occupation/Education: retired 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 [place] Gender identity (if verbalized by the patient): Female Spiritual care concerns: No Meds Home Medications and Allergies Home Medications ?Medication ?Instructions ?Recorded ?Confirmed ?Type aspirin 81 mg tablet,delayed 81 mg PO DAILY 10/14/19 03/02/25 History release (Adult Low Dose Aspirin) biotin 1 mg capsule 1 mg PO DAILY 10/14/19 03/02/25 History calcium 600 mg (as 1 cap PO BID 10/14/19 03/02/25 History carbonate)-vitamin D3 12.5 mcg (500 unit) capsule (Calcium with Vit D3) cetirizine 10 mg capsule 10 mg PO DAILY 10/14/19 03/02/25 History garlic 1,000 mg capsule 1,000 mg PO DAILY 10/14/19 03/02/25 History multivitamin 2 tablet PO DAILY 10/14/19 03/02/25 History omeprazole 20 mg capsule,delayed 20 mg PO DAILY #90 caps 02/09/20 03/02/25 Rx release lactobacillus combination no.9 4 4,000 mmu cells PO DAILY 03/25/20 03/02/25 History billion cell capsule (Adult 50 Plus Probiotic) cholecalciferol (vitamin D3) 25 25 mcg PO DAILY 07/11/21 03/02/25 History mcg (1,000 unit) capsule ascorbic acid 100 mg-elderberry 1 tablet PO DAILY 04/16/23 03/02/25 History fruit 50 mg chewable tablet (Airborne (elderberry)) omega 9-ajb-rhz-fish oil 100 1 cap PO BID 04/16/23 03/02/25 History mg-160 mg-1,000 mg capsule (Fish Oil) apixaban 5 mg tablet (Eliquis) 5 mg PO BID 07/21/24 03/02/25 History levothyroxine 50 mcg tablet See Rx Instructions .Route 11/28/24 03/02/25 Rx .COMPLEX #90 tabs coQ10 (ubiquinol) 200 mg capsule 200 mg PO DAILY 12/30/24 03/02/25 History acetaminophen 500 mg tablet 1,000 mg PO PRN PRN pain 03/02/25 03/02/25 History (Acetaminophen Pain Relief) atorvastatin 20 mg tablet See Rx Instructions .Route 03/04/25 Rx .COMPLEX #90 tabs Allergies Allergy/AdvReac Type Severity Reaction Status Date / Time hydrocodone (From [place]) AdvReac Nausea and Verified 03/02/25 07:53 Vomiting Exam Narrative: On exam she has catching and locking with any motion. She has pain to manipulation and a positive Tay's. Neurologically she is intact. She walks with an antalgic gait. Radiology Reports: Comments: CT Scan Report Signed Patient: Jennifer Rivera EXAMINATION: CT knee LT w con DATE: 02/11/2025 09:44 INDICATION: Left knee pain TECHNIQUE: High resolution computed tomography (CT) of the left knee was performed on the intra-articular administration of iodinated contrast mixture but without intravenous contrast. Details of the contrast mixture in joint injection have been dictated separately. Additional sagittal and coronal reconstructions were performed. Automated exposure control and iterative reconstruction technique were employed. The dose-length product was 570.45 mGy-cm. COMPARISON: Left knee radiographs dated 12/30/2024 FINDINGS: Bone alignment is normal. No fracture. In the medial compartment there is medial extrusion of the medial meniscus. No discrete meniscal tear. There is deep chondral ulceration involving greater than 50% the cartilage thickness with chondral surface regularity at the anterior weightbearing medial femoral condyle and along the anteromedial margin of the medial tibial plateau. The lateral meniscus appears normal. There is partial thickness chondral ulceration and fissuring involving approximately 50% the cartilage thickness at the posterior half of the lateral tibial plateau. There is additional partial-thickness chondral ulceration and deep fissuring at the central weightbearing lateral femoral condyle. There is deep chondral ulceration and fissuring at the cephalad aspect of the medial patellar facet and apical ridge with underlying cortical irregularity and mild subarticular cystlike changes. Additional deep chondral ulceration and fissuring along the medial and inferior margins of the medial trochlea with additional mild subarticular cystlike changes along the inferior aspect and medial trochlea. There is mild synovitis at the margins of the suprapatellar pouch as well as within a moderate-sized Rice's cyst also opacified with contrast. Although evaluation is significantly more limited with CT than MRI, the anterior and posterior cruciate ligaments, medial and lateral collateral ligament complexes, extensor mechanism and flexor tendons at the posterior medial and posterolateral aspects of the knee all appear unremarkable. IMPRESSION: 1. 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 2. Medial extrusion of the medial meniscus without discrete tear. Reviewed, dictated and finalized at location B. Ankle MRI 08/23/20 Finger X-Ray 10/14/19 Hand X-Ray 03/26/24 Knee X-Ray 12/30/24 Orthopedics Result Report 12/30/24 Assessment and Plan Assessment and plan (1) Acute medial meniscus tear of left knee: Code(s): S83.242A - Other tear of medial meniscus, current injury, left knee, initial encounter Status: Acute Assessment and Plan: Patient is knee pain left. He has mechanical catching and locking. Pain is worse with activity somewhat relieved by rest. She has failed conservative treatment. She does have arthritis but she still has a fair bit of joint space at least on the standard x-rays. She has medial extrusion of her meniscus the with a CT scan an arthrogram. On exam and by history she has a meniscal tear. She would like to proceed with arthroscopic intervention. I have discussed this with her risks, benefits, limitations, and alternatives in detail. Will proceed per her request. (2) Osteoarthritis of left knee: Code(s): M17.12 - Unilateral primary osteoarthritis, left knee Status: Acute
[2025-03-09] VITALS (10 sets, daily range): BP systolic 100–151; BP diastolic 55–75; PULSE 78–96; RESP 13–20; TEMP 36.2–36.3; O2SAT 91–100
--- OUTSIDE RECORDS SUMMARY | 2025-03-09 02:08 | XMS_ITS | Patient Health Record ---
Author Organization [facility] [employer] [employer] [facility] [place] ([address]) Address [address] [place] [address] Care Team Providers Care Online Project Manager Name Role Phone Dr. Nafisa Wallis Primary Care Provider Un available Frieda Nixon Unavailable [phone] Allergies No Known Allergies Reason For Referral No Information Medications Medication SIG (Take, Route, Frequency, Duration) Notes Start Date End Date Status BIOTIN 1000 mcg 1 tab(s) orally once a day Active FISH OIL 1200 mg 1 cap(s) orally 3 times a day Active EPIPEN 2-PARKER 0.3 mg 0.3 mg intramuscularly once; Duration: 1 dose(s) Active GLUCOSAMINE 500 mg 1 tab(s) orally 3 times a day Active FIBER CHOICE 1.5 g 2 tab(s) chewed 3 times a day Active VITAMIN D3 2000 intl units 1 tab(s) orally once a day Active TRIAMCINOLONE ACETONIDE TOPICAL 0.1% 1 akash applied topically 2 times a day, prn; Duration: 30 day(s) Active EPINEPHRINE AUTO-INJECTOR 0.3 mg as directed intramuscularly once; Duration: 1 day Active Pataday 0.2 % 1 gtt in each affected eye once a day; Duration: 10 day(s) Active GARLIC orally Daily Active PAZEO 0.7% 1 gtt in each affected eye once a day Active SIT (TRADITIONAL) variable per schedule SC per schedule; Duration: to be determined Active AZELASTINE HYDROCHLORIDE NASAL 137 mcg/inh 2 spray(s) intranasally 2 times a day; Duration: 30 day(s) Active SIT (TRADITIONAL) variable per schedule SC per schedule Active ASPIRIN 81 mg 1 tab(s) orally once a day Active COREG 3.125 mg 1 tab(s) orally 2 times a day Active Triamcinolone Acetonide 0.1 % 1 akash applied topically 2 times a day, prn; Duration: 30 day(s) Active Garlic ORALLY DAILY *Please review and pick correct strength-formula tion from Science Fantasy options. If intended option is not shown, discontinue and re-order from Quick Search* Active CETIRIZINE HYDROCHLORIDE 10 mg 1 tab(s) orally once a day Active ATORVASTATIN 20 mg 1 tab(s) orally once a day Active Coreg 3.125 MG 1 tab(s) orally 2 times a day Not-Taking FOSAMAX 70 mg 1 tab(s) orally once a week Active ZyrTEC Allergy 10 MG 1 tab(s) orally once a day Active GARLIC orally Daily Active Cetirizine HCl 10 MG 1 tab(s) orally once a day 12/13/2021 Active COQ10 300 mg 1 cap(s) orally once a day Active Ipratropium Dennis 21 MCG/INH 2 SPRAY(S) INTRANASALLY 3 TIMES A DAY; Duration: 30 DAY(S) *Please review and pick correct strength-formula tion from Science Fantasy options. If intended option is not shown, discontinue and re-order from Quick Search* 12/13/2021 Active PRAVASTATIN 10 mg 1 tab(s) orally once a day (at bedtime) Active Azelastine HCl 137 MCG/SPRAY 2 spray(s) intranasally 2 times a day; Duration: 30 day(s) Active PRILOSEC OTC 20 mg 1 tab(s) orally once a day Active Atorvastatin Calcium 20 MG 1 tab(s) orally once a day Active EpiPen 2-Parker 0.3 MG/0.3ML 0.3 mg intramuscularly once; Duration: 1 dose(s) Active LEVOTHYROXINE 50 mcg (0.05 mg) 1 tab(s) orally once a day Active Fosamax 70 MG 1 tab(s) orally once a week Active PATADAY 0.2% 1 gtt in each affected eye once a day; Duration: 10 day(s) Active Coenzyme Q10 300 MG 1 cap(s) orally once a day Active Aspirin 81 MG 1 tab(s) orally once a day Active Pravastatin Sodium 10 MG 1 tab(s) orally once a day (at bedtime) Active ZYRTEC 10 mg 1 tab(s) orally once a day Active PriLOSEC OTC 20 MG 1 tab(s) orally once a day Active IPRATROPIUM BROMIDE NASAL 21 mcg/inh 2 spray(s) intranasally 3 times a day; Duration: 30 day(s) 12/13/2021 Active Levothyroxine Sodium 50 MCG 1 tab(s) orally once a day Active Fiber Choice 1.5 GM 2 tab(s) chewed 3 times a day Active Vitamin D3 50 MCG (2000 UT) 1 tab(s) orally once a day Active Biotin 1000 MCG 1 tab(s) orally once a day Active Fish Oil 1200 MG 1 cap(s) orally 3 times a day Active Glucosamine Sulfate 500 MG 1 tab(s) orally 3 times a day Active Immunizations Vaccine Route Administration Date Status [...] Problem Status W/U Status Risk Notes Problem Information temporarily unavailable Chronic allergic conjunctivitis NOS (372.14) Active confirmed Problem Information temporarily unavailable Allergic rhinitis due to allergen (477.8) Active confirmed Problem Information temporarily unavailable Other chronic allergic conjunctivitis (H10.45) Active confirmed Problem Information temporarily unavailable Essential (primary) hypertension (I10) Active confirmed Problem Information temporarily unavailable Acute upper respiratory infection, unspecified (J06.9) Active confirmed Problem Information temporarily unavailable Allergic rhinitis due to pollen (J30.1) Active confirmed Problem Information temporarily unavailable Allergic rhinitis due to animal (cat) (dog) hair and dander (J30.81) Active confirmed Problem Information temporarily unavailable Other allergic rhinitis (J30.89) Active confirmed Problem Information temporarily unavailable Cough (R05) Active confirmed Problem Information temporarily unavailable Allergic rhinitis due to pollen (J30.1) Active confirmed Problem Information temporarily unavailable Allergic rhinitis due to animal (cat) (dog) hair and dander (J30.81) Active confirmed Problem Information temporarily unavailable Other allergic rhinitis (J30.89) Active confirmed Problem Information temporarily unavailable Other chronic allergic conjunctivitis (H10.45) Active confirmed Vital Signs Oximetry 99 % 04/02/2024 Blood pressure diastolic 82 mm Hg 04/02/2024 Height 64 in 04/02/2024 Blood pressure systolic 126 mm Hg 04/02/2024 Weight 150.6 lbs 04/02/2024 BMI 25.85 kg/m2 04/02/2024 Encounters Encounter Location Date Provider Diagnosis [facility] [address] [place] [phone] 03/19/2024 Frieda Nixon Allergic rhinitis du e to pollen J30.1 ; Allergic rhinitis due to animal (cat) (dog) hair and dander J30.81 ; Other allergic rhinitis J30.89 and Other chronic allergic conjunctivitis H10.45 [facility] [address] [place] [phone] 04/02/2024 Frieda Nixon Allergic rhinitis du e to pollen J30.1 ; Other chronic allergic conjunctivitis H10.45 ; Allergic rhinitis due to animal (cat) (dog) hair and dander J30.81 and Other allergic rhinitis J30.89 [facility] [address] [place] [phone] 04/16/2024 Frieda Nixon Allergic rhinitis du e to pollen J30.1 ; Allergic rhinitis due to animal (cat) (dog) hair and dander J30.81 ; Other allergic rhinitis J30.89 and Other chronic allergic conjunctivitis H10.[address] [phone] 04/30/2024 Frieda Nixon Allergic rhinitis du e to pollen J30.1 ; Allergic rhinitis due to animal (cat) (dog) hair and dander J30.81 ; Other allergic rhinitis J30.89 and Other chronic allergic conjunctivitis H10.45 [facility] [address] [place], [place] [address] [address] [place] [phone] 05/14/2024 Frieda Nixon Allergic rhinitis du e to pollen J30.1 ; Allergic rhinitis due to animal (cat) (dog) hair and dander J30.81 ; Other allergic rhinitis J30.89 and Other chronic allergic conjunctivitis H10.45 [facility] [address] [place], [place] [address] [address] [place] [phone] 05/28/2024 Frieda Nixon Allergic rhinitis du e to pollen J30.1 ; Allergic rhinitis due to animal (cat) (dog) hair and dander J30.81 ; Other allergic rhinitis J30.89 and Other chronic allergic conjunctivitis H10.45 [facility] [address] [place], [place] [address] [address] [place] [phone] 06/11/2024 Frieda Nixon Allergic rhinitis du e to pollen J30.1 ; Allergic rhinitis due to animal (cat) (dog) hair and dander J30.81 ; Other allergic rhinitis J30.89 and Other chronic allergic conjunctivitis H10.45 [facility] [address] [place], [place] [address] [address] [place] [phone] 06/25/2024 Frieda Nixon Allergic rhinitis du e to pollen J30.1 ; Allergic rhinitis due to animal (cat) (dog) hair and dander J30.81 ; Other allergic rhinitis J30.89 and Other chronic allergic conjunctivitis H10.45 [facility] [address] [place], [place] [address] [address] [place] [phone] 07/09/2024 Frieda Nixon Allergic rhinitis du e to pollen J30.1 ; Allergic rhinitis due to animal (cat) (dog) hair and dander J30.81 ; Other allergic rhinitis J30.89 and Other chronic allergic conjunctivitis H10.45 [facility] [address] [place], [place] [address] [address] [place] [phone] 08/18/2024 Frieda Nixon Allergic rhinitis du e to pollen J30.1 ; Allergic rhinitis due to animal (cat) (dog) hair and dander J30.81 ; Other allergic rhinitis J30.89 and Other chronic allergic conjunctivitis H10.45 [facility] [address] [place], [place] [address] [address] [place] [phone] 09/04/2024 Frieda Nixon Allergic rhinitis du e to pollen J30.1 ; Allergic rhinitis due to animal (cat) (dog) hair and dander J30.81 ; Other allergic rhinitis J30.89 and Other chronic allergic conjunctivitis H10.45 [facility] [address] [place], [place] [address] [address] [place] [phone] 09/17/2024 Friedamaria del rosario Nixon Allergic rhinitis du e to pollen J30.1 ; Allergic rhinitis due to animal (cat) (dog) hair and dander J30.81 ; Other allergic rhinitis J30.89 and Other chronic allergic conjunctivitis H10.45 [facility] [address] [place] [address] [employer] [address] [phone] 10/01/2024 Frieda Nixon Allergic rhinitis du e to pollen J30.1 ; Allergic rhinitis due to animal (cat) (dog) hair and dander J30.81 ; Other allergic rhinitis J30.89 and Other chronic allergic conjunctivitis H10.45 [facility] [address] [place] [address] [employer] [address] [place] [phone] 10/08/2024 Frieda Nixon Allergic rhinitis du e to pollen J30.1 ; Allergic rhinitis due to animal (cat) (dog) hair and dander J30.81 ; Other allergic rhinitis J30.89 and Other chronic allergic conjunctivitis H10.45 [facility] [address] [place], [place] [address] [address] [place] [phone] 10/16/2024 Friedamaria del rosario Nixon Allergic rhinitis du e to pollen J30.1 ; Allergic rhinitis due to animal (cat) (dog) hair and dander J30.81 ; Other allergic rhinitis J30.89 and Other chronic allergic conjunctivitis H10.45 [facility] [address] [place], [place] [address] [address] [place] [phone] 10/30/2024 Friedamaria del rosario Nixon Allergic rhinitis du e to pollen J30.1 ; Allergic rhinitis due to animal (cat) (dog) hair and dander J30.81 ; Other allergic rhinitis J30.89 and Other chronic allergic conjunctivitis H10.45 [facility] [address] [place], [place] [address] [address] [phone] 11/12/2024 Frieda Nixon Allergic rhinitis du e to pollen J30.1 ; Allergic rhinitis due to animal (cat) (dog) hair and dander J30.81 ; Other allergic rhinitis J30.89 and Other chronic allergic conjunctivitis H10.45 [facility] [address] [place], [place] [address] [address] [phone] 11/26/2024 Friedamaria del rosario Nixon Allergic rhinitis du e to pollen J30.1 ; Allergic rhinitis due to animal (cat) (dog) hair and dander J30.81 ; Other allergic rhinitis J30.89 and Other chronic allergic conjunctivitis H10.45 [facility] [address] [place] [address] [employer] [address] [address] 12/10/2024 Friedamaria del rosario Nixon Allergic rhinitis du e to pollen J30.1 ; Allergic rhinitis due to animal (cat) (dog) hair and dander J30.81 ; Other allergic rhinitis J30.89 and Other chronic allergic conjunctivitis H10.45 [facility] [address] [place], [place] [address] [address] [phone] 12/24/2024 Friedamaria del rosario Nixon Allergic rhinitis du e to pollen J30.1 ; Allergic rhinitis due to animal (cat) (dog) hair and dander J30.81 ; Other allergic rhinitis J30.89 and Other chronic allergic conjunctivitis H10.45 [facility] [address] [place], [place] [address] [address] [phone] 01/07/2025 Friedamaria del rosario Steinm Allergic rhinitis du e to pollen J30.1 ; Allergic rhinitis due to animal (cat) (dog) hair and dander J30.81 ; Other allergic rhinitis J30.89 and Other chronic allergic conjunctivitis H10.45 [facility] [address] [place], [place] [address] [address] [place] [phone] 01/21/2025 Friedamaria del rosario Steinm Allergic rhinitis du e to pollen J30.1 ; Allergic rhinitis due to animal (cat) (dog) hair and dander J30.81 ; Other allergic rhinitis J30.89 and Other chronic allergic conjunctivitis H10.[address] [phone] 02/04/2025 Frieda Steinm Allergic rhinitis du e to pollen J30.1 ; Allergic rhinitis due to animal (cat) (dog) hair and dander J30.81 ; Other allergic rhinitis J30.89 and Other chronic allergic conjunctivitis H10.[address] [address] 02/18/2025 Frieda Hussain Allergic rhinitis du e to pollen J30.1 ; Allergic rhinitis due to animal (cat) (dog) hair and dander J30.81 ; Other allergic rhinitis J30.89 and Other chronic allergic conjunctivitis H10.[address] [address] 03/04/2025 Frieda Steinm Allergic rhinitis du e to pollen J30.1 ; Allergic rhinitis due to animal (cat) (dog) hair and dander J30.81 ; Other allergic rhinitis J30.89 and Other chronic allergic conjunctivitis H10.45 Assessments Encounter Date Diagnosis (ICD Code) Assessment Notes Treatment Notes Treatment Clinical Notes Section Notes 03/19/2024 Allergic rhinitis due to pollen (ICD-10 [...] rhinitis due to pollen (ICD-10 - J30.1) 02/18/2025 Allergic rhinitis due to pollen (ICD-10 - J30.1) 03/04/2025 Allergic rhinitis due to pollen (ICD-10 - J30.1) 03/04/2025 Allergic rhinitis due to animal (cat) (dog) hair and dander (ICD-10 - J30.81) 02/18/2025 Allergic rhinitis due to animal (cat) (dog) hair and dander (ICD-10 - J30.81) 02/04/2025 Allergic rhinitis due to animal (cat) [...] (dog) hair and dander (ICD-10 - J30.81) 03/19/2024 Other allergic rhinitis (ICD-10 - J30.89) [...] 02/04/2025 Other allergic rhinitis (ICD-10 - J30.89) 02/18/2025 Other allergic rhinitis (ICD-10 - J30.89) 03/04/2025 Other allergic rhinitis (ICD-10 - J30.89) 03/04/2025 Other chronic allergic conjunctivitis (ICD-10 - H10.45) 02/18/2025 Other chronic allergic conjunctivitis (ICD-10 - H10.45) 02/04/2025 Other chronic allergic conjunctivitis (ICD-10 - [...] Treatment Next Appt Details Provider Name:Frieda scruggs, 03/18/2025 08:30:00 AM, [address] [facility], [facility] [address], [address], Insurance Providers Payer Name Payer Address Payer Phone Subscriber Number Group Number Insured Name Patient Relationship to Insured Coverage Start Date Coverage End Date [employer] (Medicare) Attention Claims [address] [facility] [place] [address] [id number] Jennifer Rivera Self - [place] [address] [id number] Jennifer Rivera Self - patient is the [...]
--- OUTSIDE RECORDS SUMMARY | 2025-03-09 02:08 | XMS_ITS | Clinical Summary ---
Author Organization [facility] Address [address] [place] [address] Care Team Providers Care Extras Casting Director Name Role Phone Unavailable Primary Care Provider Unavailabl e Source Comments [facility],non-owned Affiliates and Associated Physician Practices is amultiple site organization consisting of ambulatory clinics and hospital sitesin [place], [place], [place] and [place]. This disclosure is being madepursuant to the Care Everywhere program and may not contain all information available regarding this patient. 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
--- OUTSIDE RECORDS SUMMARY | 2025-03-09 02:08 | XMS_ITS | Encounter Summary ---
Author Organization [facility] Address [address] [place] [address] Care Team Providers Care Pattern Clerk Name Role Phone Unavailable Primary Care Provider Unavailabl e Encounter Details Date Type Department Care Team (Late st Contact Info) Description 04/14/2024 Lab Requisition [facility] - DermPath Lab [address] [place] [phone] Dileep Leach MD [address] [place] [address] Social History Tobacco Use Types Packs/Day Years Used Date Smoking Tobacco: Never Assessed Comments Unknown Sex and Gender Information Value Date Recorded Sex Assigned at Not on file 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 Gender Identity Not on file Sexual Orientation Not on file documented as of this encounter Plan of Treatment Not on file documented as of this encounter Procedures Procedure Name Priority Date/Time Associated Diagnosis Comments DERMATOPATHOLOGY Routine 04/09/2024 12:0 0 AM CDT documented in this encounter Results * DERMATOPATHOLOGY (04/09/2024 12:00 AM CDT) Case Report Dermatopathology Report Case: [id number] Authorizing Provider: Dileep Leach MD Collected: 04/09/2024 12:00 AM Ordering Location: [facility] - Received: 04/14/2024 09:26 AM [...] characteristic determined by the Dermatopathology Laboratory at [facility], directed by Dr. Twan Camejo. These tests need not be, and therefore are not, approved by the [place] Food and Drug Administration. The tests are used for clinical purposes. Billing Codes Specimen Charges Stain Charges 11453 1 4 2:36 PM CDT DERMATOPATHOLOGY LABORATORY Embedded Images 4 2:36 PM CDT DERMATOPATHOLOGY LABORATORY Pathology/Cytolog y TISSUE SPECIMEN FROM SKIN / Unknown 04/09/2024 04/14/2024 9:26 AM CDT us Dileep Leach MD LAB - PATHOLOGY/CYTOLOGY ORD ERABLES Final Result DERMATOPATHOLOGY LABORATORY [facility] - Department of Dermatology [address], [address] [phone] documented in this encounter Visit Diagnoses Not on filedocumented in this encounter
--- OUTSIDE RECORDS SUMMARY | 2025-03-09 02:08 | XMS_ITS | Referral Summary ---
Author Organization [facility] [address] [place] [address] [address] [place] [address] Care Team Providers Care Director Of Quantitative Research Name Role Phone Nafisa Quinn MD Primary Care Provider Encounters Date Type Department Care Team Description 03/02/2025 Telephone [facility] Medical [facility] Cardiology [address] [place] [address] [address] [place] [address] Terrell Ashton MD 12/30/2024 9:15 AM CDT Ancillary Procedure [facility] Medical [facility] Cardiology [address] [facility] [address] [place] [phone] Cardiac pacemaker in situ [Z95.0] (Primary Dx); Sinus bradycardia from Last 3 Months Allergies No known active allergies Medications omeprazole (PriLOSEC) 20 mg capsule take 1 capsule by oral route every day before a meal 0 0 6 Active aspirin (ASPIR-81) 81 mg tablet take 1 Tablet by oral route every day 0 0 6 Active MULTIVIT-MINERA LS/FERROUS FUM (MULTI VITAMIN ORAL) Take by mouth. Activ e omega-3 fatty acids-fish oil 360-1,200 mg capsule Take by mouth. Activ e CALCIUM CARBONATE/VITAM IN D3 (CALCIUM 600 + D,3, ORAL) Take by mouth. Activ e cholecalciferol (VITAMIN D-3) 2000 unit capsule 1 capsule (2,000 Units total) Active UBIDECARENONE/V ITAMIN E MIXED (COQ10 SG 100 ORAL) Take by mouth. Activ e garlic 1,000 mg capsule Take by mouth. Activ e alendronate (FOSAMAX) 70 mg tablet Take 1 [...] 1 tablet (50 mcg total) by mouth machinist before breakfast Active acidophilus-pec tin, citrus 100 million cell-10 mg capsule Take by mouth Activ e apixaban (Eliquis) 5 mg tablet Take 1 tablet by mouth twice daily 180 tablet 1 Active Active Problems Problem Noted Date Diagnosed Date Cardiac pacemaker in situ 04/24/2023 Overview (04/26/2023): Biotronik Edora Dual Pacemaker. Dx; Symptomatic Bradycardia. [facility] [employer] remote monitoring. Coronary artery disease invo lving [place] coronary artery of [place] heart without angina pectoris 08/08/2017 History of coronary artery stent placement 08/08 Primary hypothyroidism 05/02/2017 Nontoxic multinodular goiter 05/02/2017 Candidiasis of vulva and vagina 09/19/2006 Chronic maxillary sinusitis 09/19/2006 Malignant neoplasm of upper- outer quadrant of left breast in female, estrogen receptor positive 09/28/1993 Cancer Staging:Pathologic stage from 09/28/1993: pT2, pN0, cM0, G2, ER+, SC+, HER2: Unknown - Signed by Juan Quinn [...] on file Legal Sex Female 12:23 PM PROTEIN 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 Gender Identity Female 02/02/2023 12:55 PM CDT Sexual Orientation Straight 02/02/2023 12 :55 PM CDT Last Filed Vital Signs Vital Sign Reading Time Taken Comments Blood Pressure 144/76 07/10/2024 1:08 PM PROTEIN SCIENTIST Pulse 78 07/10/2024 1:08 PM PROTEIN SCIENTIST Temperature 36.7 C (98.1 F) 07/01/2019 12:28 PM PROTEIN SCIENTIST Respiratory Rate 16 01/08/2019 9:23 AM CDT Oxygen Saturation 99% 07/10/2024 1:08 PM PROTEIN SCIENTIST Inhaled Oxygen Concentration - - Weight 69.6 kg (153 lb 6.4 oz) 07/10/2024 1:08 P M PROTEIN SCIENTIST Height 162.6 cm (5' 4) 07/10/2024 1:08 PM PROTEIN SCIENTIST Body Mass Index 26.33 07/10/2024 1:08 PM PROTEIN SCIENTIST Plan of Treatment Not on file Procedures Procedure Name Priority Date/Time Associated Diagnosis Comments DEVICE CHECK - REMOTE Routine 12/30/2024 10:29 AM CDT Sinus bradycardia from Last 3 Months Results * DEVICE CHECK - REMOTE (12/30/2024 10:29 AM CDT) Anatomical Region Laterality Modality Other Narrative 01/09/2025 10:38 AM CDT [employer]ik [place]ora Dual Pacemaker. Dx; Symptomatic Bradycardia. DOI [facility]18[facility]20[facility]. [employer] remote monitoring. Routine DDD Pacemaker Remote. Transmission attached. Battery status-Ok, 85% remaining to NED. Stable lead impedances, pacing and sensing thresholds. Presenting rhythm: AP-VS. AP-92 %, CHAR CONVEYOR TENDER-10%. No AT/AF episodes noted. No Ventricular tachy arrhythmias detected. Medication: Eliquis, ASA, Lipitor. Office pacemaker f/u 09/23/2025. Follow up: [employer]ik remote 04/07/2025. Andie Lam, JENN Terrell Ashton MD [facility] PROC EDURES Final Result from Last 3 Months Insurance MEDICARE [place] [employer] [place] MEDICARE [place] MEDICARE [employer] [place] Care Teams Director Of Quantitative Research Relationship Specialty Start Date End Date Nafisa Quinn MD [address] [facility] [address] [place] [address] PCP - General Family Medicine 02/07/18
--- OUTSIDE RECORDS SUMMARY | 2025-03-09 02:08 | XMS_ITS | Clinical Summary ---
Author Organization [facility] Address [address] [place] [address] Care Team Providers Care Asphalt Paver Name Role Phone Nafisa Quinn MD Primary Care Provider [phone] Social History Tobacco Use Types Packs/Day Years Used Date Smoking Tobacco: Never Assessed Comments Unknown Sex and Gender Information Value Date Recorded Sex Assigned at Not on file Legal Sex Female 7:45 PM CDT Gender Identity Not on file Sexual Orientation Not on file Last Filed Vital Signs Vital Sign Reading Time Taken Comments Blood Pressure - - Pulse - - Temperature - - Respiratory Rate - - Oxygen Saturation - - Inhaled Oxygen Concentration - - Weight 72.6 kg (160 lb) 07/09/2018 1:00 PM 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 Height 162.6 cm (5' 4) 07/09/2018 1:00 PM 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 Body Mass Index 27.46 07/09/2018 1:00 PM 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 Plan of Treatment Health Maintenance Due Date Last Done Comments DTaP, Tdap and Td Vaccines ( 1 - Tdap) 11/28/1963 Pneumococcal Vaccine: 50+ Ye ars (1 of 1 - PCV) 1994 Zoster Vaccines (1 of 2) 1994 Annual Medicare Wellness Visit 2009 Dexa Scan (General) 2009 RSV Immunization or 60+ Years (1 - 1-dose 75+ series) 11/28/2019 COVID-19 Vaccine ( - 2023-2 5 season) 2024 Meningococcal B Vaccine Aged Out No l onger eligible based on patient's age to complete this topic Meningococcal Vaccine Aged Out No geraldo tho eligible based on patient's age to complete this topic RSV Immunizations Under 20 Months Aged Out No longer eligible based on patient's age to complete this [place] [address] MEDICARE [facility] Care Teams Asphalt Paver Relationship Specialty Start Date End Date Nafisa Quinn MD [address] [facility] [address] [place], [place] [id number] PCP - General 08/04/15
--- OUTSIDE RECORDS SUMMARY | 2025-03-09 02:08 | XMS_ITS | Clinical Summary ---
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
--- OUTSIDE RECORDS SUMMARY | 2025-03-09 02:08 | XMS_ITS | Encounter Summary ---
Author Organization [facility] Healthcare Address [address] [place] [address] Care Team Providers Care Social Worker Health Services Name Role Phone Nafisa Quinn MD Primary Care Provider Encounter Details Date Type Department Care Team (Late st Contact Info) Description 03/02/2025 Telephone [facility] Medical Group Cardiology [address] [place] [address] Terrell Ashton MD [address] [place] [address] Social History Tobacco Use Types Packs/Day Years Used Date Smoking Tobacco: Never Smokeless Tobacco: Never Alcohol Use Standard Drinks/Week Comments Not Currently 0 (1 standard drink = 0.6 oz pur e alcohol) PHQ-2 Answer Date Recorded PHQ-2 Total Score (If total score is 3 or more points, staff should administer the PHQ-9) 0 12/09/2019 Comments Unknown Sex and Gender Information Value Date Recorded Sex Assigned at Not on file 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 * Telephone Encounter - Yoly Giron - 03/02/2025 8:31 AM CDT Marissa PEMBERTON called requesting we fax over the most recent interrogation sheet for the pts pacemakerthank you Contact: documented in this encounter Plan of Treatment Not on file documented as of this encounter Visit Diagnoses Not on filedocumented in this encounter Care Teams Social Worker Health Services Relationship Specialty Start Date End Date Nafisa Quinn MD [address] [facility] [address] [place] [address] PCP - General Family Medicine 02/07/18 documented as of this encounter
--- OUTSIDE RECORDS SUMMARY | 2025-03-09 02:08 | XMS_ITS | Clinical Summary ---
Author Organization [facility] [address] Address [address] [place] [address] Care Team Providers Care Process Technician Name Role Phone Nafisa Quinn MD [...] 1 tablet (50 mcg total) by mouth supervisor self service store before breakfast Active acidophilus-pec tin, citrus 100 million cell-10 mg capsule Take by mouth Activ e apixaban (Eliquis) 5 mg tablet Take 1 tablet by mouth twice daily 180 tablet 1 Active Active Problems Problem Noted Date Diagnosed Date Cardiac pacemaker in situ 04/24/2023 Overview (04/26/2023): Biotronik Edora Dual Pacemaker. Dx; Symptomatic Bradycardia. [facility] Biotronik remote monitoring. Coronary artery disease invo lving [place] coronary artery of [place] heart without angina pectoris 08/08/2017 History of coronary artery stent placement 08/08 Primary hypothyroidism 05/02/2017 Nontoxic multinodular goiter 05/02/2017 Candidiasis of vulva and vagina 09/19/2006 Chronic maxillary sinusitis 09/19/2006 Malignant neoplasm of upper- outer quadrant of left breast in female, estrogen receptor positive 09/28/1993 Cancer Staging:Pathologic stage from 09/28/1993: pT2, pN0, cM0, G2, ER+, KY+, HER2: Unknown - Signed by Juan Quinn MD on 01/08/2019 Clinical: Unsigned Encounters Date Type Department Care Team Description 03/02/2025 Telephone [facility] Medical Group Cardiology [address] [facility] [address] [place] [phone] Terrell Ashton MD 12/30/2024 9:15 AM CDT Ancillary Procedure [facility] Medical Group Cardiology [address] [facility] [address] [place] [address] Cardiac pacemaker in situ [Z95.0] (Primary [...] on file Legal Sex Female 12:23 PM AT RISK PARAPROFESSIONAL Gender Identity Female 02/02/2023 12:55 PM CDT Sexual Orientation Straight 02/02/2023 12 :55 PM CDT Obstetrics History Last Filed Vital Signs Vital Sign Reading Time Taken Comments Blood Pressure 144/76 07/10/2024 1:08 PM AT RISK PARAPROFESSIONAL Pulse 78 07/10/2024 1:08 PM AT RISK PARAPROFESSIONAL Temperature 36.7 C (98.1 F) 07/01/2019 12:28 PM AT RISK PARAPROFESSIONAL Respiratory Rate 16 01/08/2019 9:23 AM CDT Oxygen Saturation 99% 07/10/2024 1:08 PM AT RISK PARAPROFESSIONAL Inhaled Oxygen Concentration - - Weight 69.6 kg (153 lb 6.4 oz) 07/10/2024 1:08 P M AT RISK PARAPROFESSIONAL Height 162.6 cm (5' 4) 07/10/2024 1:08 PM AT RISK PARAPROFESSIONAL Body Mass Index 26.33 07/10/2024 1:08 PM AT RISK PARAPROFESSIONAL Plan of Treatment Health Maintenance Due Date Last Done Comments Osteoporosis Screening-Bone Density Scan 1945 DTaP/Tdap/Td Vaccine (1 - Tdap) 11/28/1955 Hepatitis B Screening 1962 Pneumococcal vaccine 65+ (1 of 1 - PCV) 1994 Zoster Vaccine (1 of 2) 1994 Well Visit 65+ 2009 Depression Screening 12/08/2020 12/09/2019, 05/02/20 17 Fall Risk Assessment 12/08/2020 12/09/2019 Influenza Vaccine (#1) 2025 8, 06/13/2018, 05/30/2018, Additional history exists Procedures Procedure Name Priority Date/Time Associated Diagnosis Comments DEVICE CHECK - REMOTE Routine 12/30/2024 10:29 AM CDT Sinus bradycardia from Last 3 Months Results * DEVICE CHECK - REMOTE (12/30/2024 10:29 AM CDT) Anatomical Region Laterality Modality Other Narrative 01/09/2025 10:38 AM CDT Biotronik Edora Dual Pacemaker. Dx; Symptomatic Bradycardia. DOI 04/18/2023-[facility]. Kayley-Daisha. Biotronik remote monitoring. Routine DDD Pacemaker Remote. Transmission attached. Battery status-Ok, 85% remaining to NED. Stable lead impedances, pacing and sensing thresholds. Presenting rhythm: AP-VS. AP-92 %, PEANUT ROASTER-10%. No AT/AF episodes noted. No Ventricular tachy arrhythmias detected. Medication: Eliquis, ASA, Lipitor. Office pacemaker f/u 09/23/2025. Follow up: Biotronik remote 04/07/2025. Andie Lam RN Terrell Ashton MD [facility] PROC EDURES Final Result from Last 3 Months Insurance MEDICARE [place] MEDICARE [place] MEDICARE [facility] Care Teams Process Technician Relationship Specialty Start Date End Date Nafisa Quinn MD [address] [facility] [address] [place] [address] PCP - General Family Medicine 02/07/18
--- NOTE | 2025-03-09 07:28 | WPDANESEPPF ---
Anes - Initial Pre Proc Eval Procedure: Operation Date: 03/09/25 10:30 Proposed Procedures p Left Knee Arthroscopy Partial Medial Meniscectomy, Proceed As Indicated - Osman Arthur MD Date/Time: 03/09/25 07:28 Surgeon: Osman Arthur MD Pre Op Diagnosis: Left Medial Meniscus Tear Patient Data Age: 79 Gender: F Height: 1.63 m Weight: 70.35 kg Allergies Allergy/AdvReac Type Severity Reaction Status Date / Time hydrocodone (From [place]) AdvReac Nausea and Verified 03/09/25 08:26 Vomiting Home Medications ?Medication ?Instructions ?Recorded ?Confirmed ?Type aspirin 81 mg tablet,delayed 81 mg PO DAILY 10/14/19 03/09/25 History release (Adult Low Dose Aspirin) biotin 1 mg capsule 1 mg PO DAILY 10/14/19 03/09/25 History calcium 600 mg (as 1 cap PO BID 10/14/19 03/09/25 History carbonate)-vitamin D3 12.5 mcg (500 unit) capsule (Calcium with Vit D3) cetirizine 10 mg capsule 10 mg PO DAILY 10/14/19 03/09/25 History garlic 1,000 mg capsule 1,000 mg PO DAILY 10/14/19 03/09/25 History multivitamin 2 tablet PO DAILY 10/14/19 03/09/25 History omeprazole 20 mg capsule,delayed 20 mg PO DAILY #90 caps 02/09/20 03/09/25 Rx release lactobacillus combination no.9 4 4,000 mmu cells PO DAILY 03/25/20 03/09/25 History billion cell capsule (Adult 50 Plus Probiotic) cholecalciferol (vitamin D3) 25 25 mcg PO DAILY 07/11/21 03/09/25 History mcg (1,000 unit) capsule ascorbic acid 100 mg-elderberry 1 tablet PO DAILY 04/16/23 03/09/25 History fruit 50 mg chewable tablet (Airborne (elderberry)) omega 5-smn-qwy-fish oil 100 1 cap PO BID 04/16/23 03/02/25 History mg-160 mg-1,000 mg capsule (Fish Oil) apixaban 5 mg tablet (Eliquis) 5 mg PO BID 07/21/24 03/09/25 History levothyroxine 50 mcg tablet See Rx Instructions .Route 11/28/24 03/09/25 Rx .COMPLEX #90 tabs coQ10 (ubiquinol) 200 mg capsule 200 mg PO DAILY 12/30/24 03/09/25 History acetaminophen 500 mg tablet 1,000 mg PO PRN PRN pain 03/02/25 03/02/25 History (Acetaminophen Pain Relief) atorvastatin 20 mg tablet See Rx Instructions .Route 03/04/25 03/09/25 Rx .COMPLEX #90 tabs Patient hx anesthesia problems: none Family hx anesthesia problems: none Results Review: All pre-operative results and documents have been reviewed as part of the pre-operative evaluation. [facility] Past Medical History Medical History Pacemaker Biotronik dual-chamber pacemaker implanted 04/18/2023 for symptomatic bradycardia Orthostasis Sinus bradycardia Heart block AV second degree Hiatal hernia Gastritis GERD (gastroesophageal reflux disease) Mixed hyperlipidemia BMI 28.0-28.9,adult Hypothyroidism (acquired) CAD (coronary artery disease) STEMI November 2015 with normal echocardiogram at that time Vitamin D deficiency Osteopenia Breast cancer Left breast Surgical History Surgical History Status post cataract extraction of both eyes with insertion of intraocular lens History of arthroplasty of finger of right hand (06/2021) Thumb Presence of stent in LAD coronary artery (11/2015) H/O hand surgery History of breast augmentation With subsequent removal of the left breast implant 2018 after became deflated H/O left mastectomy Arthritis of carpometacarpal (CMC) joint of right thumb Right thumb CMC arthroplasty July 25, 2021 Family History Family History Sibling Carcinoma of colon Patient's brother is Sudden Sibling Heart disease Father Heart disease Cerebrovascular accident Mother Heart disease Social History Social History (Updated 02/12/25 @ 08:55 by Cynthia Holland [facility]) Social History: Patient reports that she has been since 1965. Her and her had 3 sons who are all alive and well. 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 She still maintains an active lifestyle and healthy diet. She is a lifelong nonsmoker and does not drink alcohol or use illicit substances. She is independent activities of daily living. Code status: Full code Surrogate decision maker: Smoking status: Never smoker Second hand tobacco smoke exposure: No Alcohol intake: never Substance use: never Substance use type: does not use Do You Feel Safe in your Home?: Yes Lack of Transportation: No Lack of Food: Never True Current Housing: I Have Housing Concerned About Future Housing: No Difficulty Paying Gas/Electric Bills: No Difficulty Paying for Meds: No Currently Unemployed: No Education: Trade/Vocational Certificate Difficulty w/ Childcare or Family Care: No Living arrangements: with family Additional living arrangements comments: [facility] Occupation/Education: retired 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 Informed Consent: The patient's anesthetic plan and its attendant risks and benefits were discussed with the patient/family/POA. Questions were solicited and answers provided to the satisfaction of the patient/family/POA.
[2025-03-09] MEDS: ACETAMINOPHEN 500 MG TABLET 1000 MG PO (08:40)
[2025-03-09] MEDS: KETOROLAC 15 MG/ML VIAL (*BKC) IV PUSH (08:45)
[2025-03-09] MEDS: LACTATED RINGERS 1,000 ML 30 ML IV CONT ×2 (08:45→11:52)
--- NOTE | 2025-03-09 09:01 | WPDHPUPDATE1 ---
History and Physical Update Update Date/Time: 03/09/25 09:01 History and Physical has been reviewed, including an updated exam of the patient. There are NO changes in the patient's condition. Risks, benefits, and alternatives have been discussed and questions answered. Patient agrees to proceed with procedure. Patient is scheduled for arthroscopy partial meniscectomy proceed as indicated.
[2025-03-09] MEDS: ceFAZolin 2 GM in SODIUM CHLORIDE 0.9% IV 50 ML 100 ML IVPB (09:41)
[2025-03-09] MEDS: LIDO 1%/EPINEPHRINE 1:100,000 20 ML VIAL 10 ML INFILTRATE (10:04)
--- NOTE | 2025-03-09 10:07 | P.OP_ITS ---
Procedure Note - Detailed Date of Procedure 03/09/25 Pre-op Diagnosis Left Medial Meniscus Tear Post-op Diagnosis Same Procedure Performed LEFT knee arthroscopy with partial meniscectomy Surgeon Osman Arthur MD Anesthesia General Indications Pain, Locking and Catching Description of Procedure Patient brought to operating room # 7. An anesthetic was administered. The knee was sterilely prepped and draped in the usual manner. Standard portals were u sed. Superior medial portal was used for the outflow cannula, inferior lateral portal was used for the scope, inferior medial portal was used for the instruments. Arthroscopy was performed, the patellar femoral joint degenerative changes. The medial compartment showed a complex tear. The lateral compartment showed fraying. The ACL was intact. Using baskets and cherelle the meniscal tear was trimmed back to a stable base so the nothing further could be pulled into the joint. Any loose or delaminated fragments were gently trimmed to a stable base. At this point the instruments were withdrawn, sutures placed and patient left the operating room in satisfactory condition. Estimated Blood Loss 20 Drains No Packing No Pathology None sent Complications No immediate complications Condition Stable Disposition PACU [facility] Billing Surgery - Charge Forward: Surgery Billing ([id number] [facility])
[2025-03-09] MEDS: fentaNYL CITRATE INJ (*CRX) 100 MCG/2 ML VIAL 25 MCG IV PUSH ×2 (10:53→11:44)
[2025-03-09] MEDS: oxyCODONE HCL (*CRX) 5 MG TAB IR PO (11:47)
--- NOTE | 2025-03-09 12:23 | SUR.PHASEII ---
1200 DR[address] MONREAL CALLED RE: DISCHARGE MEDICATION ORDER.
--- NOTE | 2025-03-09 14:04 | SUR.PHASEII ---
1240 DR MONREAL CALLED AGAIN RE: DISCHARGE MED. 1400 DR MONREAL CALLED BACK; ASKED TO TELL PATIENT TO TRY TYLENOL. NO CHANGE IN PRESCRIPTION.
== END 2025-03-09 13:10 | disposition home or self-care (01) ==
PROVIDERS: PCP Family Medicine; Visit Provider Orthopaedic Surgery
PROC: (CPT 29870; principal; 2025-03-09 10:30)
DX: M23.332 Other meniscus derangements, other medial meniscus, left knee (principal)
CPT/HCPCS: 29881; J0690; A9270; J1100; J1885; J2003; J2004; J2371; J2405; J2704; J3010; J7120

== ENCOUNTER 2025-08-04 14:20 | Outpatient (CLI) | payer MEDICARE, OTHER, SELFPAY ==
--- OUTSIDE RECORDS SUMMARY | 2025-05-13 02:30 | XMS_ITS ---
Author Organization [facility] [place] ([address]) Address [address] [facility] [address] [place] [address] Care Team Providers Care Public Relations Officer Name Role Phone Dr. Nafisa Wallis Primary Care Provider Un available Frieda Nixon Unavailable [phone] REASON FOR VISIT SCIT - Traditional Schedule Allergy immunotherapy Medications Medication SIG (Take, Route, Frequency, Duration) Notes Start Date End Date Status SIT (TRADITIONAL) variable per schedule SC per schedule Active Social History Sex Assigned At : Social History Observation Description Sex Assigned At Female Encounters Encounter Location Date Provider Diagnosis [facility] [address] [facility] [address] [place] [address] 05/13/2025 Frieda Nixon Allergic rhinitis du e [...] Details Follow Up: 1 Week, Reason: Provider Name:Frieda BanuelosYelena Santosh kongjacki, 08/05/2025 08:30:00 AM, [address] [facility], [address], [place], [address], Progress Notes * Jennifer RIVERA CDOB:[birth year] (79 yo F)Acc No.[id number]:05/13/2025 SCIT-Aeroallergen Patient: Jennifer NGO Provider: Francis Nixon MD :1945 A ge:79 Y S ex:Female Date:05/13/2025 Address:[address] [place] [address], [id number] Pcp:Dr. Nafisa Wallis Subjective: * Chief Complaints: [...] Information: * Visit Code: * Procedure Codes: 48842 IMMUNOTHERAPY INJECTIONS. * Electronic signature of Leona Nixon MD on 08/04/2025 at 04:33 PM SCHOOL BUS OPERATOR Sign off status: Pending * Provider: Francis Nixon MD Date: 0 05/13/2025 Generated for Ruthie carrion/Stephany/Bob on: 1 10/05/2024 04:33 PM SCHOOL BUS OPERATOR History and Physical Notes * HPI (History [...]
--- OUTSIDE RECORDS SUMMARY | 2025-06-24 11:30 | XMS_ITS ---
Author Organization [facility] [place] ([address]) Address [address] [place] [address] Care Team Providers Care Line Driver Name Role Phone Dr. Nafisa Wallis Primary Care Provider Un available Frieda Nixon Unavailable [phone] REASON FOR VISIT SCIT (Aeroallergen) Social History Sex Assigned At : Social History Observation Description Sex Assigned At Female Encounters Encounter Location Date Provider Diagnosis [facility] [address] [place] [address] 06/24/2025 Frieda Nixon Plan Of Treatment Next Appt Details Provider Name:Frieda scruggs, 08/05/2025 08:30:00 AM, [facility], [address], [place], [address], Progress Notes * Jennifer RIVERA CDOB:[birth year] (79 yo F)Acc No.[id number]:06/24/2025 SCIT-Aeroallergen Patient: Jennifer NGO Provider: Francis Nixon MD :1945 A ge:79 Y S ex:Female Date:06/24/2025 Address:[address] [id number] Pcp:Dr. Nafisa Wallis Subjective: * Chief Complaints: * 1 . SCIT (Aeroallergen). * Medical History: Objective: * Vitals: Assessment: Plan: * Treatment: * Billing Information: * Visit Code: * Procedure Codes: * Electronic signature of Leona Nixon MD on 08/04/2025 at 04:33 PM ENGINEERING MECHANIC Sign off status: Pending * Provider: Francis Nixon MD Date: Generated for Ruthie carrion/Stephany/Bob on: 10/05/2024 04:33 PM ENGINEERING MECHANIC
--- NOTE | ~2025-08-04 | XR_ITS ---
EXAM/PROCEDURE: XR fl inj knee RT for MR/CT HISTORY: M25.561 - Pain in right knee COMPARISON: None available. Fossae time: 0.4 minutes DAP: 0.2 Rios per square centimeter. TECHNIQUE: Following informed consent and timeout, the right knee was marked fluoroscopically along the lateral aspect of the mid patella. This area was prepped and draped in sterile fashion. Approximately 2.5 cc 1% lidocaine without epinephrine used for local anesthesia. A 22-gauge 3.5 needle was then advanced to the undersurface of the patella and 20 mL of mixed solution including 10 cc of Omnipaque 240 sterile contrast, 5 cc of 0.5% bipuvicaine, and 5 cc sterile saline injected without resistance into the knee joint. The needle was withdrawn. Patient then ambulated uneventfully to the CT gantry. IMPRESSION: Patient status post right knee injection for CT arthrogram. Reviewed, dictated and finalized at location A. MANAGER
--- NOTE | ~2025-08-04 | CT_ITS ---
EXAM/PROCEDURE: CT knee RT w con HISTORY: M25.561 - Pain in right knee COMPARISON: None available. TECHNIQUE: CT right knee for CT arthrography. FINDINGS: The bones appear intact with no fracture subluxation or dislocation. No acute or aggressive bony process. Moderately severe tricompartmental osteoarthritic degenerative changes most advanced at the patellofemoral joint where subchondral cystic changes are present in the medial facet, and in the medial joint space where there is severe joint space narrowing, cartilaginous thinning and marginal spur formation. There appears to be a complex tear involving the posterior horn of the medial meniscus with defects extending into the superior margin approaching the root as seen on image 69 series 601, and along the inferior margin image 72 series 601. The anterior horn is poorly seen possibly associated with meniscal failure and displacement due to joint space narrowing. No definite flipped, displaced or bucket-handle tear identified, however these are difficult to exclude due to very limited visualization of the anterior horn, again which I think is probably due to displacement associated with joint space narrowing. In the lateral meniscus, the posterior horn appears intact; the anterior horn of the lateral meniscus is poorly seen and also appears to be displaced anteriorly associated with degenerative joint space narrowing, although not as severe as in the medial compartment. Cruciate and collateral ligaments appear intact. Quadriceps and infrapatellar tendons appear intact. In the posterior soft tissues, a small to moderate-sized Rice's cyst present with extension of a larger component deep to the medial head of the gastrocnemius muscle with this communicating fluid accumulating space measuring 7.0 x 1.7 x 1.7 cm. See image 65 series 601. IMPRESSION: 1. Complex tear involving the posterior horn the medial meniscus, and probable meniscal failure anteriorly involving the medial meniscus. Meniscal failure involving the anterior horn of the lateral meniscus may be developing as well. 2. Advanced tricompartmental osteoarthritic degenerative changes especially involving the patellofemoral joint and medial joint space. 3. Small to moderate Rice's cyst with extension of the more prominent larger fluid accumulation space deep to the medial head of the gastrocnemius as detailed above. Reviewed, dictated and finalized at location A. ATOR CONDUCTOR IMPRESSION: 1. Complex tear involving the posterior horn the medial meniscus, and probable meniscal failure anteriorly involving the medial meniscus. Meniscal failure inv olving the anterior horn of the lateral meniscus may be developing as well. 2. Advanced tricompartmental osteoarthritic degenerative changes especially inv olving the patellofemoral joint and medial joint space. 3. Small to moderate Rice's cyst with extension of the more prominent larger f luid accumulation space deep to the medial head of the gastrocnemius as detaile d above.
--- OUTSIDE RECORDS SUMMARY | 2025-08-04 16:33 | XMS_ITS | Patient Health Record ---
Author Organization [facility] [place] ([address]) Address [address] [place] [address] Care Team Providers Care Chess Instructor Name Role Phone Dr. Nafisa Wallis Primary Care Provider Un available Paresh Nixonn Unavailable [phone] Allergies No Known Allergies Reason For Referral No Information Medications Medication SIG (Take, Route, Frequency, Duration) Notes Start Date End Date Status Cetirizine HCl 10 MG 1 tab(s) orally onc e a day 12/13/2021 Active ZyrTEC Allergy 10 MG 1 tab(s) orally onc e a day Active Garlic ORALLY DAILY *Please review and pick correct strength-formulat ion from Storifyan options. If intended option is not shown, discontinue and re-order from Quick Search* Active Triamcinolone Acetonide 0.1 % 1 akash applied topically 2 times a day, prn; Duration: 30 day(s) Active Atorvastatin Calcium 20 MG 1 tab(s) orally once a day Active Pataday 0.2 % 1 gtt in each affected eye once a day; Duration: 10 day(s) Active Coenzyme Q10 300 MG 1 cap(s) orally once a day Active Fosamax 70 MG 1 tab(s) orally once a week Active Levothyroxine Sodium 50 MCG 1 tab(s) orally once a day Active SIT (TRADITIONAL) variable per schedule SC per schedule Active PriLOSEC OTC 20 MG 1 tab(s) orally once a day Active Pravastatin Sodium 10 MG 1 tab(s) orally once a day (at bedtime) Active Biotin 1000 MCG 1 tab(s) orally once a day Active Vitamin D3 50 MCG (2000 UT) 1 tab(s) orally once a day Active Aspirin 81 MG 1 tab(s) orally once a day Active Fish Oil 1200 MG 1 cap(s) orally 3 times a day Active SIT (TRADITIONAL) variable per schedule SC per schedule; Duration: to be determined Active EpiPen 2-Parker 0.3 MG/0.3ML 0.3 mg intramuscularly once; Duration: 1 dose(s) Active PAZEO 0.7% 1 gtt in each affected eye once a day Active Azelastine HCl 137 MCG/SPRAY 2 spray(s) intranasally 2 times a day; Duration: 30 day(s) Active Fiber Choice 1.5 GM 2 tab(s) chewed 3 times a day Active Glucosamine Sulfate 500 MG 1 tab(s) orally 3 times a day Active EPINEPHRINE AUTO-INJECTOR 0.3 mg as directed intramuscularly once; Duration: 1 days Active CETIRIZINE HYDROCHLORIDE 10 mg 1 tab(s) orally once a day Active EPIPEN 2-PARKER 0.3 mg 0.3 mg intramuscularly once; Duration: 1 dose(s) Active Eliquis 5 MG Oral; Duration: 90 Days Active Immunizations Vaccine Route Administration Date Status Comme nts NOC Pneumovax 23 Unknown 10/03/2017 Refused NOC Influenza-Fluzone Unknown 06/10/2019 Administered NOC Prevnar 13 Unknown 06/10/2019 Administered Fluzone Quadrivalent Unknown 07/09/2017 Administered Influenza Unknown 06/05/2016 Administered Influenza Unknown 06/18/2018 Administered Influenza Unknown 10/01/2018 Others Pneumovax 23 Unknown 06/25/2020 Administered Flucelvax Unknown 09/27/2019 Administered Social History Tobacco Use: Social History Observation Description Date Details (start date - stop date) Never Smoker NA - NA Sex Assigned At : Social History Observation Description Sex Assigned At Female Smoking Smart Form: Question Answer Notes Are [...] Active confirmed Vital Signs Oximetry 99 % 06/23/2025 Blood pressure diastolic 76 mm Hg 06/23/2025 Height 64 in 06/23/2025 Blood pressure systolic 134 mm Hg 06/23/2025 Weight 159.6 lbs 06/23/2025 BMI 27.39 kg/m2 06/23/2025 Encounters Encounter Location Date Provider Diagnosis [facility] [address] [address] 07/22/2025 Frieda Nixon Allergic rhinitis du e to pollen J30.1 ; Allergic rhinitis due to animal (cat) (dog) hair and dander J30.81 ; Other allergic rhinitis J30.89 and Other chronic allergic conjunctivitis H10.[address] [facility] [address] [place] [address] 07/07/2025 Frieda Nixon Allergic rhinitis du e to pollen J30.1 ; Allergic rhinitis due to animal (cat) (dog) hair and dander J30.81 ; Other allergic rhinitis J30.89 and Other chronic allergic conjunctivitis H10.[address] [facility] [address] [place] [address] 06/03/2025 Frieda Nixon Allergic rhinitis du e to pollen J30.1 ; Allergic rhinitis due to animal (cat) (dog) hair and dander J30.81 ; Other allergic rhinitis J30.89 and Other chronic allergic conjunctivitis H10.[address] [facility] [address] [place], [place] [address] [address] [place] [address] 05/20/2025 Friedamaria del rosario Nixon Allergic rhinitis du e to pollen J30.1 ; Allergic rhinitis due to animal (cat) (dog) hair and dander J30.81 ; Other allergic rhinitis J30.89 and Other chronic allergic conjunctivitis H10.45 [facility] [address] [place], [place] [address] [address] [place] [address] 04/29/2025 Friedamaria del rosario Steinm Allergic rhinitis du e to pollen J30.1 ; Allergic rhinitis due to animal (cat) (dog) hair and dander J30.81 ; Other allergic rhinitis J30.89 and Other chronic allergic conjunctivitis H10.[address] [facility] [address] [place] [address] [address] 04/15/2025 Friedamaria del rosario Nixon Allergic rhinitis du e to pollen J30.1 ; Allergic rhinitis due to animal (cat) (dog) hair and dander J30.81 ; Other allergic rhinitis J30.89 and Other chronic allergic conjunctivitis H10.45 [facility] [address] [place] [address] [address] [place] [address] 04/01/2025 Friedamaria del rosario Nixon Allergic rhinitis du e to pollen J30.1 ; Allergic rhinitis due to animal (cat) (dog) hair and dander J30.81 ; Other allergic rhinitis J30.89 and Other chronic allergic conjunctivitis H10.45 [facility] [address] [place], [place] [address] [address] [place] [phone] 03/18/2025 Frieda Hussain Allergic rhinitis du e to pollen J30.1 ; Allergic rhinitis due to animal (cat) (dog) hair and dander J30.81 ; Other allergic rhinitis J30.89 and Other chronic allergic conjunctivitis H10.45 [facility] [address] [place], [place] [address] [address] [place] [phone] 03/04/2025 Friedamaria del rosario Steinm Allergic rhinitis du e to pollen J30.1 ; Allergic rhinitis due to animal (cat) (dog) hair and dander J30.81 ; Other allergic rhinitis J30.89 and Other chronic allergic conjunctivitis H10.45 [facility] [address] [place], [place] [address] [address] [address] 02/18/2025 Friedamaria del rosario Steinm Allergic rhinitis du e to pollen J30.1 ; Allergic rhinitis due to animal (cat) (dog) hair and dander J30.81 ; Other allergic rhinitis J30.89 and Other chronic allergic conjunctivitis H10.45 [facility] [address] [place], [place] [address] [address] [address] 02/04/2025 Frieda Hussain Allergic rhinitis du e to pollen J30.1 ; Allergic rhinitis due to animal (cat) (dog) hair and dander J30.81 ; Other allergic rhinitis J30.89 and Other chronic allergic conjunctivitis H10.45 [facility] [address] [place] [address] [address] 01/21/2025 Friedamaria del rosario [employer] Allergic rhinitis du e to pollen J30.1 ; Allergic rhinitis due to animal (cat) (dog) hair and dander J30.81 ; Other allergic rhinitis J30.89 and Other chronic allergic conjunctivitis H10.45 [facility] [address] [place] [address] [address] 01/07/2025 Friedamaria del rosario Steinm Allergic rhinitis du e to pollen J30.1 ; Allergic rhinitis due to animal (cat) (dog) hair and dander J30.81 ; Other allergic rhinitis J30.89 and Other chronic allergic conjunctivitis H10.45 [facility] [address] [place], [place] [address] [address] [address] 12/24/2024 Frieda Hussain Allergic rhinitis du e to pollen J30.1 ; Allergic rhinitis due to animal (cat) (dog) hair and dander J30.81 ; Other allergic rhinitis J30.89 and Other chronic allergic conjunctivitis H10.[address] [facility] [address] [place], [place] [address] [address] [place] [address] 12/10/2024 Frieda Hussain Allergic rhinitis du e to pollen J30.1 ; Allergic rhinitis due to animal (cat) (dog) hair and dander J30.81 ; Other allergic rhinitis J30.89 and Other chronic allergic conjunctivitis H10.45 [facility] [address] [place], [place] [address] [address] [address] 11/26/2024 Friedamaria del rosario Nixon Allergic rhinitis du e to pollen J30.1 ; Allergic rhinitis due to animal (cat) (dog) hair and dander J30.81 ; Other allergic rhinitis J30.89 and Other chronic allergic conjunctivitis H10.45 [facility] [address] [place], [place] [address] [address] [address] 11/12/2024 Friedamaria del rosario Steinm Allergic rhinitis du e to pollen J30.1 ; Allergic rhinitis due to animal (cat) (dog) hair and dander J30.81 ; Other allergic rhinitis J30.89 and Other chronic allergic conjunctivitis H10.45 [facility] [address] [place] [address] [address] 10/30/2024 Friedamaria del rosario Steinm Allergic rhinitis du e to pollen J30.1 ; Allergic rhinitis due to animal (cat) (dog) hair and dander J30.81 ; Other allergic rhinitis J30.89 and Other chronic allergic conjunctivitis H10.45 [facility] [address] [place], [place] [address] [address] [address] 10/16/2024 Friedamaria del rosario Steinm Allergic rhinitis du e to pollen J30.1 ; Allergic rhinitis due to animal (cat) (dog) hair and dander J30.81 ; Other allergic rhinitis J30.89 and Other chronic allergic conjunctivitis H10.45 [facility] [address] [place], [place] [address] [address] [address] 10/08/2024 Frieda Hussain Allergic rhinitis du e to pollen J30.1 ; Allergic rhinitis due to animal (cat) (dog) hair and dander J30.81 ; Other allergic rhinitis J30.89 and Other chronic allergic conjunctivitis H10.45 [facility] [address] [place], [place] [address] [address] [place] [address] 10/01/2024 Friedamaria del rosario Steinm Allergic rhinitis du e to pollen J30.1 ; Allergic rhinitis due to animal (cat) (dog) hair and dander J30.81 ; Other allergic rhinitis J30.89 and Other chronic allergic conjunctivitis H10.[address] [address] 09/17/2024 Frieda Nixon Allergic rhinitis du e to pollen J30.1 ; Allergic rhinitis due to animal (cat) (dog) hair and dander J30.81 ; Other allergic rhinitis J30.89 and Other chronic allergic conjunctivitis H10.[address] [address] 09/04/2024 Frieda Nixon Allergic rhinitis du e to pollen J30.1 ; Allergic rhinitis due to animal (cat) (dog) hair and dander J30.81 ; Other allergic rhinitis J30.89 and Other chronic allergic conjunctivitis H10.[address] [address] 08/18/2024 Frieda Nixon Allergic rhinitis du e to pollen J30.1 ; Allergic rhinitis due to animal (cat) (dog) hair and dander J30.81 ; Other allergic rhinitis J30.89 and Other chronic allergic conjunctivitis H10.[address] [address] 06/23/2025 Frieda Nixon Allergic rhinitis du e to pollen J30.1 ; Other chronic allergic conjunctivitis H10.45 ; Allergic rhinitis due to animal (cat) (dog) hair and dander J30.81 and Other allergic rhinitis J30.[address] [address] 04/22/2025 Frieda Nixon Assessments Encounter Date Diagnosis (ICD Code) Assessment Notes Treatment Notes Treatment Clinical Notes Section Notes 08/18/2024 Allergic rhinitis due to pollen (ICD-10 [...] rhinitis due to pollen (ICD-10 - J30.1) 03/18/2025 Allergic rhinitis due to pollen (ICD-10 - J30.1) 04/01/2025 Allergic rhinitis due to pollen (ICD-10 - J30.1) 04/15/2025 Allergic rhinitis due to pollen (ICD-10 - J30.1) 04/29/2025 Allergic rhinitis due to pollen (ICD-10 - J30.1) 05/20/2025 Allergic rhinitis due to pollen (ICD-10 - J30.1) 06/23/2025 Other chronic allergic conjunctivitis (ICD-10 - H10.45) I encouraged allergy avoidance measures and meds as above. If symptoms persist, consider adding additional medications including intraocular antihistamine/mast cell stabilizer, PRN 06/23/2025 Allergic rhinitis due to pollen (ICD-10 - [...] discontinuing. Increase shot frequency during peak seasons. 07/07/2025 Allergic rhinitis due to pollen (ICD-10 - J30.1) 07/22/2025 Allergic rhinitis due to pollen (ICD-10 - J30.1) 06/03/2025 Allergic rhinitis due to pollen (ICD-10 - J30.1) 06/03/2025 Allergic rhinitis due to animal (cat) (dog) hair and dander (ICD-10 - J30.81) 07/22/2025 Allergic rhinitis due to animal (cat) (dog) hair and dander (ICD-10 - J30.81) 07/07/2025 Allergic rhinitis due to animal (cat) (dog) hair and dander (ICD-10 - J30.81) 06/23/2025 Allergic rhinitis due to animal (cat) (dog) hair and dander (ICD-10 - J30.81) Recommend medications, allergen avoidance measures, and SCIT as above 05/20/2025 Allergic rhinitis due to animal (cat) (dog) hair and dander (ICD-10 - J30.81) 04/29/2025 Allergic rhinitis due to animal (cat) (dog) hair and dander (ICD-10 - J30.81) 04/15/2025 Allergic rhinitis due to animal (cat) (dog) hair and dander (ICD-10 - J30.81) 04/01/2025 Allergic rhinitis due to animal (cat) (dog) hair and dander (ICD-10 - J30.81) 03/18/2025 Allergic rhinitis due to animal (cat) (dog) hair and dander (ICD-10 - J30.81) 03/04/2025 Allergic rhinitis due to animal (cat) [...] hair and dander (ICD-10 - J30.81) 08/18/2024 Other allergic rhinitis (ICD-10 - J30.89) [...] 03/04/2025 Other allergic rhinitis (ICD-10 - J30.89) 03/18/2025 Other allergic rhinitis (ICD-10 - J30.89) 04/01/2025 Other allergic rhinitis (ICD-10 - J30.89) 04/15/2025 Other allergic rhinitis (ICD-10 - J30.89) 04/29/2025 Other allergic rhinitis (ICD-10 - J30.89) 05/20/2025 Other allergic rhinitis (ICD-10 - J30.89) 06/23/2025 Other allergic rhinitis (ICD-10 - J30.89) Recommend medications, allergen avoidance measures, and SCIT as above 07/07/2025 Other allergic rhinitis (ICD-10 - J30.89) 07/22/2025 Other allergic rhinitis (ICD-10 - J30.89) 06/03/2025 Other allergic rhinitis (ICD-10 - J30.89) 07/22/2025 Other chronic allergic conjunctivitis (ICD-10 - H10.45) 07/07/2025 Other chronic allergic conjunctivitis (ICD-10 - H10.45) 06/03/2025 Other chronic allergic conjunctivitis (ICD-10 - H10.45) 05/20/2025 Other chronic allergic conjunctivitis (ICD-10 - H10.45) 04/29/2025 Other chronic allergic conjunctivitis (ICD-10 - H10.45) 04/15/2025 Other chronic allergic conjunctivitis (ICD-10 - H10.45) 04/01/2025 Other chronic allergic conjunctivitis (ICD-10 - H10.45) 03/18/2025 Other chronic allergic conjunctivitis (ICD-10 - H10.45) 03/04/2025 Other chronic allergic conjunctivitis (ICD-10 - [...] Other chronic allergic conjunctivitis (ICD-10 - H10.45) 06/23/2025 Other Plan Of Treatment Next Appt Details Provider Name:Frieda scruggs, 08/05/2025 08:30:00 AM, [address] [facility], [address], [place], [address], Insurance Providers Payer Name Payer Address Payer Phone Subscriber Number Group Number Insured Name Patient Relationship to Insured Coverage Start Date Coverage End Date [employer] (Medicare) Attention Claims [address] [place] [address] [id number] Jennifer Rivera Self - [place] [address] [id number] Jennifer Rivera Self - patient is the insured Medical (General) History Medical History History ICD Code Breast Cancer - 1993 treated with chemot herapy DVT - left calf secondary to immobilizat ion due to shoulder injury Myocardial Infarction Surgical History Surgery Date(Month/Year) Hysterectomy 1989 Modified Radical Mastectomy 1993 Appendectomy 1960 Stent placement 11/2015 pacemaker 2022 meniscus repair 2024 Hospitalization History Reason Date(Month/Year) same as above
--- OUTSIDE RECORDS SUMMARY | 2025-08-04 16:33 | XMS_ITS | Clinical Summary ---
Author Organization [facility] Address [address] [place] [address] Phone Care Team Providers Care Cosmetic Manager Name Role Phone Unavailable Primary Care Provider Unavailabl e Social History Tobacco Use Types Packs/Day Years Used Date Smoking Tobacco: Never Assessed Comments Unknown Sex and Gender Information Value Date Recorded Sex Assigned at Not on file Legal Sex Female 10:00 AM PROOF PASSER Gender Identity Not on file Sexual Orientation Not on file Plan of Treatment Health Maintenance Due Date Last Done Comments Hepatitis C Virus (HCV) Screening 1945 TdaP Immunization 1945 Zoster Immunization (1 of 2) 1994 Respiratory Syncytial Virus (RSV) Immunization (Adult) (1 - 1-dose 75+ series) 11/28/2019 Influenza Immunization (#1) 04/27/202505/27, 09/27/2019, 06/10/2019, Additional history exists SARS-COV-2 Immunization (2024- season) 2025 Pneumococcal Immunization (50+ years) Completed 06/25/2020, 06/10/2019 [...]
--- OUTSIDE RECORDS SUMMARY | 2025-08-04 16:33 | XMS_ITS | Clinical Summary ---
Author Organization [facility] Address [address] [place] [address] Care Team Providers Care Rougher Machine Operator Name Role Phone Nafisa Quinn MD Primary Care Provider [phone] Social History Tobacco Use Types Packs/Day Years [...] 72.6 kg (160 lb) 07/09/2018 1:00 PM ACCOUNTING PROFESSIONAL Height 162.6 cm (5' 4) 07/09/2018 1:00 PM ACCOUNTING PROFESSIONAL Body Mass Index 27.46 07/09/2018 1:00 PM ACCOUNTING PROFESSIONAL Plan of Treatment Health Maintenance Due Date Last Done Comments DTaP, Tdap and Td Vaccines ( 1 - Tdap) 11/28/1964 Pneumococcal Vaccine: 50+ Ye ars (1 of 1 - PCV) 1994 Zoster Vaccines (1 of 2) 1994 Annual Medicare Wellness Visit 2009 Dexa Scan (General) 2009 RSV Immunization or 60+ Years (1 - 1-dose 75+ series) 11/28/2019 COVID-19 Vaccine ( - 2024-2 6 season) 2025 Influenza Adult (#1) 2025 05/30/2018 Hepatitis A Vaccines Aged Out No long er eligible based on patient's age to complete this topic Meningococcal B Vaccine Aged Out No l onger eligible based on patient's age to complete this topic Meningococcal Vaccine Aged Out No geraldo tho eligible based on patient's age to complete this topic RSV Immunizations Under 20 Months Aged Out No longer eligible based on patient's age to complete this topic [place] [address] [facility] Care Teams Rougher Machine Operator Relationship Specialty Start Date End Date Nafisa Quinn MD [address] [facility] [address] [place] [address] PCP - General 08/04/15
--- OUTSIDE RECORDS SUMMARY | 2025-08-04 16:34 | XMS_ITS | Clinical Summary ---
Author Organization [facility] [address] Address [address] [place] [address] Care Team Providers Care Cake Former Name Role Phone Nafisa Quinn MD Primary Care Provider Allergies Active Allergy Reactions Criticality Noted Date Comments Hydrocodone Vomiting Low 04/24/2025 Tramadol Vomiting Low 04/24/2025 Medications omeprazole (PriLOSEC) 20 mg capsule take 1 capsule by oral route every day before a meal 0 0 01/06/20 16 Active aspirin (ASPIR-81) 81 mg tablet take 1 Tablet by oral route every day 0 0 01/06/20 16 Active MULTIVIT-JEWEL STAKER ALS/FERROUS FUM (MULTI VITAMIN ORAL) Take by mouth. A ctive omega-3 fatty acids-fish oil 360-1,200 mg capsule Take by mouth. Activ e CALCIUM CARBONATE/ELIA MIN D3 (CALCIUM 600 + D,3, ORAL) Take by mouth. Acti ve cholecalcifero l (VITAMIN D-3) 2000 unit capsule 1 capsule (2,000 Units total) Active UBIDECARENONE/ VITAMIN E MIXED (COQ10 SG 100 ORAL) Take by mouth. Ac tive garlic 1,000 mg capsule Take by mouth. Acti ve cetirizine (ZyrTEC) 10 mg tablet Take 1 tablet (10 mg total) by mouth daily Active atorvastatin (LIPITOR) 20 mg tablet Take 1 tablet (20 mg total) by mouth daily Active biotin 1 mg tablet Take 1 tablet (1,000 mcg total) by mouth daily Active levothyroxine (SYNTHROID) 50 mcg tablet Take 1 tablet (50 mcg total) by mouth custom shop worker before breakfast Active acidophilus-pe ctin, citrus 100 million cell-10 mg capsule Take by mouth Active azelastine (ASTELIN) 137 mcg (0.1 %) nasal spray Administer 1 spray into each nostril 2 (two) times a day Active predniSONE (DELTASONE) 10 mg tablet 1 tablet (10 mg) 2 (two) times a day Active Eliquis 5 mg tablet Take 1 tablet by mouth twice daily 180 tablet 07/13/20 25 Active apixaban (Eliquis) 5 mg tablet Take 1 tablet by mouth twice daily 180 tablet 1 01/21/20 25 025 Discontinued Active Problems Problem Noted Date Diagnosed Date Cardiac pacemaker in situ 04/24/2023 Overview (04/26/2023): Biotronik Edora Dual Pacemaker. Dx; Symptomatic Bradycardia. [facility] Biotronik remote monitoring. Coronary artery disease invo lving creek coronary artery of creek heart without angina pectoris 08/08/2017 History of coronary artery stent placement 08/08 Primary hypothyroidism 05/02/2017 Nontoxic multinodular goiter 05/02/2017 Candidiasis of vulva and vagina 09/19/2006 Chronic maxillary sinusitis 09/19/2006 Malignant neoplasm of upper- outer quadrant of left breast in female, estrogen receptor positive 09/28/1993 Cancer Staging:Pathologic stage from 09/28/1993: pT2, pN0, cM0, G2, ER+, SD+, HER2: Unknown - Signed by Juan Quinn MD on 01/08/2019 Clinical: Unsigned Encounters Date Type Department Care Team Description 07/14/2025 7:15 AM REQUIREMENTS ENGINEER Ancillary Procedure [facility] Cardiology [address] [place] [address] [place] [id number] Sinus node dysfunction (HCC) [I49.5] (Primary Dx); Cardiac pacemaker in situ; Symptomatic bradycardia from Last 3 Months Immunizations Immunization [...] on file Legal Sex Female 12:23 PM REQUIREMENTS ENGINEER Gender Identity Female 02/02/2023 12:55 PM CDT Sexual Orientation Straight 02/02/2023 12 :55 PM CDT Last Filed Vital Signs Vital Sign Reading Time Taken Comments Blood Pressure 134/90 04/24/2025 8:04 AM CDT Pulse 100 04/24/2025 8:04 AM CDT Temperature 36.7 C (98.1 F) 07/01/2019 12:28 PM REQUIREMENTS ENGINEER Respiratory Rate 18 04/24/2025 8:04 AM CDT Oxygen Saturation 97% 04/24/2025 8:04 AM CDT Inhaled Oxygen Concentration - - Weight 70.8 kg (156 lb) 04/24/2025 8:04 AM CDT Height 162.6 cm (5' 4) 04/24/2025 8:04 AM CDT Body Mass Index 26.78 04/24/2025 8:04 AM CDT Plan of Treatment Health Maintenance Due Date Last Done Comments Osteoporosis Screening-Bone Density Scan 1944 DTaP/Tdap/Td Vaccine (1 - Tdap) 11/28/1955 Hepatitis B Screening 1962 Zoster Vaccine (1 of 2) 1994 Well Visit 65+ 2009 Depression Screening 12/08/2020 12/09/2019, 05/02/20 17 Fall Risk Assessment 12/08/2020 12/09/2019 Influenza Vaccine (#1) 2025 0, 06/10/2019, 06/18/2018, Additional history exists Pneumococcal vaccine 65+ Completed 06/25/2020, 05/27 Procedures Procedure Name Priority Date/Time Associated Diagnosis Comments DEVICE CHECK - REMOTE Routine 07/15/2025 9:39 AM REQUIREMENTS ENGINEER Cardiac pacemaker in situ Symptomatic bradycardia from Last 3 Months Results * DEVICE CHECK - REMOTE (07/15/2025 9:39 AM REQUIREMENTS ENGINEER) Anatomical Region Laterality Modality Other Narrative 07/17/2025 1:22 PM REQUIREMENTS ENGINEER Biotronik Edora Dual Pacemaker. Dx; Sinus Node Dysfunction, Symptomatic Bradycardia, PAF. [facility] Biotronik remote monitoring. Routine DDD Pacemaker Remote. Transmission attached. Battery status-Ok, 80% remaining to NED. Stable lead impedances, pacing and sensing thresholds. Presenting rhythm: AP-VS. AP-91 %, BAND HEAD SAW OPERATOR-1%. No AT/AF episodes noted. No Ventricular tachy arrhythmias detected. Medication: Eliquis, ASA, Lipitor. Office pacemaker f/u 09/23/2025. Follow up: Biotronik remote 6 months. Andie Lam RN Terrell Ashton MD [facility] PROC EDURES Final Result from Last [address] [place] [address] [place] [phone] MEDICARE [employer] [employer] [place] MEDICARE [place] [employer] [place] MEDICARE [facility] Address: [address] [address] [facility] Care Teams Cake Former Relationship Specialty Start Date End Date Nafisa Quinn MD [address] [facility] [address] [place] [address] PCP - General Family Medicine 02/07/18
--- OUTSIDE RECORDS SUMMARY | 2025-08-04 16:34 | XMS_ITS | Clinical Summary ---
Author Organization [facility] Address [address] [place] [address] Care Team Providers Care Hand Frame Surgical Elastic Knitter Name Role Phone Unavailable Primary Care Provider Unavailabl e Source Comments [facility],non-owned Affiliates and Associated Physician Practices is amultiple site organization consisting of ambulatory clinics and hospital sitesin [place], [place], [place] and [place]. This disclosure is being madepursuant to the Care Everywhere program and may not contain all information available regarding this patient. Last updated 18.[facility] [place] Social History Tobacco Use Types Packs/Day Years Used Date Smoking Tobacco: Never Assessed Comments Unknown Sex and Gender Information Value Date Recorded Sex Assigned at Not on file Legal Sex Female 5:45 PM MASONRY CONTRACTOR Gender Identity Not on file Sexual Orientation [...] yrs (1 - 1-dose 75+ series) 11/28/2019 DEPRESSION SCREENING 08/27/2024 COVID-19 VACCINE ( - 2024-2 6 season) 2025 INFLUENZA VACCINE (#1) 2025 HEPATITIS B VACCINE [...] age to complete [place] [address] MEDICARE [facility] [place] [address]
--- OUTSIDE RECORDS SUMMARY | 2025-08-04 16:34 | XMS_ITS | Encounter Summary ---
Author Organization [facility] Address [address] [facility] [place] [address] Care Team Providers Care Spectral Scientist Name Role Phone Unavailable Primary Care Provider Unavailabl e Encounter Details Date Type Department Care Team (Late st Contact Info) Description 04/14/2024 Lab Requisition [facility] - DermPath Lab [address] [place] [id number] Dileep Leach MD [address] [place] [address] Social History Tobacco Use Types Packs/Day Years Used Date Smoking Tobacco: Never Assessed Comments Unknown Sex and Gender Information Value Date Recorded Sex Assigned at Not on file Legal 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 Gender Identity Not on file Sexual Orientation Not on file documented as of this encounter Plan of Treatment Not on file documented as of this encounter Procedures Procedure Name Priority Date/Time Associated Diagnosis Comments DERMATOPATHOLOGY Routine 04/09/2024 12:0 0 AM CDT documented in this encounter Results * DERMATOPATHOLOGY (04/09/2024 12:00 AM CDT) Case Report Dermatopathology Report Case: [id number] Authorizing Provider: Dileep Leach MD Collected: 04/09/2024 12:00 AM Ordering Location: [facility] - Received: 04/14/2024 09:26 AM [...] characteristic determined by the Dermatopathology Laboratory at [facility], directed by Dr. Twan Camejo. These tests need not be, and therefore are not, approved by the [place] Food and Drug Administration. The tests are used for clinical purposes. Billing Codes Specimen Charges Stain Charges 61324 1 4 2:36 PM CDT DERMATOPATHOLOGY LABORATORY Embedded Images 4 2:36 PM CDT DERMATOPATHOLOGY LABORATORY Pathology/Cytolog y TISSUE SPECIMEN FROM SKIN / Unknown 04/09/2024 04/14/2024 9:26 AM CDT us Dileep Leach MD LAB - PATHOLOGY/CYTOLOGY ORD ERABLES Final Result DERMATOPATHOLOGY LABORATORY [facility] - Department of Dermatology [address] [phone] documented in this encounter Visit Diagnoses Not on filedocumented in this encounter
== END 2025-08-04 14:21 | disposition home or self-care (01) ==
PROVIDERS: PCP Family Medicine; Visit Provider Orthopaedic Surgery
DX: M17.11 Unilateral primary osteoarthritis, right knee (principal); S83.231A Complex tear of medial meniscus, current injury, right knee, initial encounter; M71.21 Synovial cyst of popliteal space [Baker], right knee; X58.XXXA Exposure to other specified factors, initial encounter
CPT/HCPCS: 20610; 73701; 77002; Q9966

== ENCOUNTER 2025-08-24 01:59 | Day surgery (SDC) | payer MEDICARE, OTHER, SELFPAY ==
[2025-08-11 15:39] VITALS: BMI 26.9
--- NOTE | 2025-08-11 15:49 | PC.NURSE ---
[facility] has started construction of its new state of the art ER which will open Spring 2026. With this, we anticipate parking may be a challenge for some our surgical patients and families. Parking spaces are limited but are available for all Surgical, obstetrics, and ER patients sharing this lot. If you arrive and find you are having a hard time finding a parking space, please note that we understand the challenges, please drive around the hospital and park near Hospital Entrance 1. When you enter this entrance, you can ask a volunteer to direct or take you back to the surgical waiting area to check in. We appreciate everyone?s understanding of these expected challenges while we build for your future. Report to the Outpatient Waiting Room, entrance under the green pavilion [address], at time ___08:00am____ on date ___08/24/25____. Planned Procedure Time: _10:00am .? Time changes happen often and if your time is changed the preop area will call you the afternoon before. - You and your visitor will be asked to self-screen and do not enter if you have any COVID symptoms. Please call surgeon if you need to reschedule. - A mask is optional within the hospital at this time. Patients may have clear liquids (water, carbonated beverages, clear teas, apple juice) until 3 hours prior to surgery with a maximum of 20 ounces. - No food from midnight until time of surgery and no smoking, or chewing tobacco (or any form of nicotine). No chewing gum, candy or mints.( 0700am) Take only the following medications with a SIP of water on the morning of surgery: ____Levothyroxine and Tylenol if needed DO NOT STOP ANY OF YOUR OTHER PRESCRIPTION MEDICATIONS PRIOR TO SURGERY EXCEPT THE FOLLOWING Hold all vitamins and supplements for 3 days per anesthesiologist. Medications to discontinue per physician ____Pt to check with Dr Arthur/Daisha regarding Eliquis and ASA instructions Date to take last dose____Pending - pt to call tomorrow as she has not heard from them yet. Please no make-up, nail german, hairspray, perfume, deodorant, or body powder the day of surgery.? No jewelry (including any body piercings) or valuables the day of surgery, leave them at home.? Please take a shower or bath the night before, or the morning of, surgery with an antibacterial soap.? Wear comfortable, loose fitting clothing.? Children are encouraged to wear pajamas. - Jewelry must be removed prior to entering the operating room.? Rings and piercings that are not removed may be cut off. - The hospital will not accept responsibility for valuables.? - Please leave all valuables, including medications, at home the day of surgery. If you are going home after surgery, a licensed driver's education instructor must drive you home.? - NO public transportation without another adult if you receive anesthesia. - We recommend that an adult stay with you for 24 hours following discharge. - We also recommend that you do not drive, make important decision, drink alcoholic beverages, or take any drugs that were not prescribed by your health care provider for at least 24 hours after your discharge time. Follow any additional instructions given to you from your surgeon. Telephone instructions given to ___Patient and asked if any additional questions and then verbalized understanding. Patient advised to call surgeon office or pre surgery nurse liaison [phone] if any additional questions.
--- NOTE | 2025-08-18 07:06 | PM.IMHP2 ---
H&P: HPI History of Present Illness Date/Time: 08/18/25 07:06 Chief Complaint: Patient is locking catching and pain in the right knee. She has failed conservative treatment. She has an MRI scan that demonstrates meniscal pathology. She would like to proceed with arthroscopic intervention. Review of Systems Musculoskeletal: Musculoskeletal: Reports arthralgias, Reports joint swelling and Reports stiffness Neurologic: Reports abnormal gait [facility] Past Medical History Medical History Acute medial meniscus tear of left knee Pacemaker Biotronik dual-chamber pacemaker implanted 04/18/2023 for symptomatic bradycardia Orthostasis Sinus bradycardia Heart block AV second degree Hiatal hernia Gastritis GERD (gastroesophageal reflux disease) Mixed hyperlipidemia BMI 28.0-28.9,adult Hypothyroidism (acquired) CAD (coronary artery disease) STEMI November 2015 with normal echocardiogram at that time Vitamin D deficiency Osteopenia Breast cancer Left breast Surgical History Surgical History Status post cataract extraction of both eyes with insertion of intraocular lens History of arthroplasty of finger of right hand (06/2021) Thumb Presence of stent in LAD coronary artery (11/2015) H/O hand surgery History of breast augmentation With subsequent removal of the left breast implant 2018 after became deflated H/O left mastectomy Arthritis of carpometacarpal (CMC) joint of right thumb Right thumb CMC arthroplasty July 25, 2021 Family History Family History Sibling Carcinoma of colon Patient's brother is Sudden Sibling Heart disease Father Heart disease Cerebrovascular accident Mother Heart disease Social History Social History Social History: Patient reports that she has been since 1965. Her and her had 3 sons who are all alive and well. 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 She still maintains an active lifestyle and healthy diet. She is a lifelong nonsmoker and does not drink alcohol or use illicit substances. She is independent activities of daily living. Code status: Full code Surrogate decision maker: Smoking status: Never smoker Second hand tobacco smoke exposure: No Alcohol intake: never Substance use: never Substance use type: does not use Current Housing: Decline to Answer Concerned About Future Housing: Decline to Answer Difficulty Paying Gas/Electric Bills: Decline to Answer Difficulty Paying for Meds: Decline to Answer Currently Unemployed: Decline to Answer Education: Decline to Answer Difficulty w/ Childcare or Family Care: Decline to Answer Living arrangements: with family Additional living arrangements comments: Occupation/Education: retired 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[place] [employer] Gender identity (if verbalized by the patient): Female Spiritual care concerns: No Meds Home Medications and Allergies Home Medications ?Medication ?Instructions ?Recorded ?Confirmed ?Type aspirin 81 mg tablet,delayed 81 mg PO DAILY 10/14/19 08/11/25 History release (Adult Low Dose Aspirin) biotin 1 mg capsule 1 mg PO DAILY 10/14/19 08/11/25 History calcium 600 mg (as 1 cap PO BID 10/14/19 08/11/25 History carbonate)-vitamin D3 12.5 mcg (500 unit) capsule (Calcium with Vit D3) cetirizine 10 mg capsule 10 mg PO DAILY 10/14/19 08/11/25 History garlic 1,000 mg capsule 1,000 mg PO DAILY 10/14/19 08/11/25 History multivitamin 2 tablet PO DAILY 10/14/19 08/11/25 History omeprazole 20 mg capsule,delayed 20 mg PO DAILY #90 caps 02/09/20 08/11/25 Rx release lactobacillus combination no.9 4 4,000 mmu cells PO DAILY 03/25/20 08/11/25 History billion cell capsule (Adult 50 Plus Probiotic) cholecalciferol (vitamin D3) 25 25 mcg PO DAILY 07/11/21 08/11/25 History mcg (1,000 unit) capsule ascorbic acid 100 mg-elderberry 1 tablet PO DAILY 04/16/23 08/11/25 History fruit 50 mg chewable tablet (Airborne (elderberry)) omega 9-whp-ukk-fish oil 100 1 cap PO BID 04/16/23 08/11/25 History mg-160 mg-1,000 mg capsule (Fish Oil) apixaban 5 mg tablet (Eliquis) 5 mg PO BID 07/21/24 08/11/25 History coQ10 (ubiquinol) 200 mg capsule 200 mg PO DAILY 12/30/24 08/11/25 History acetaminophen 500 mg tablet 1,000 mg PO PRN PRN pain 03/02/25 08/11/25 History (Acetaminophen Pain Relief) atorvastatin 20 mg tablet See Rx Instructions .Route 03/04/25 08/11/25 Rx .COMPLEX #90 tabs Glucosamine Chondroitin 1 tablet PO DAILY 03/24/25 08/11/25 History magnesium 200 mg tablet 200 mg PO DAILY 08/11/25 08/11/25 History levothyroxine 50 mcg tablet See Rx Instructions .Route 08/13/25 Rx .COMPLEX #90 tabs Allergies Allergy/AdvReac Type Severity Reaction Status Date / Time tramadol Allergy Mild Nausea and Verified 08/11/25 15:33 Vomiting hydrocodone (From [place]) AdvReac Nausea and Verified 08/11/25 15:33 Vomiting Exam Narrative: On exam she is tender to palpation medially. She has mechanical catching and locking with manipulation. She has a positive Tay's and pain with motion. Neurologically she appears to be intact. She walks with an antalgic gait. Eyes: General: appearance normal, both eyes and all related structures Neck: Neck: supple Resp: Effort & Inspection: normal respiratory effort Cardio: Rate: regular rate Rhythm: regular rhythm Ankle MRI 08/23/20 Finger X-Ray 10/14/19 Hand X-Ray 03/26/24 Knee X-Ray 06/30/25 Orthopedics Result Report 06/30/25 Assessment and Plan Assessment and plan (1) Acute medial meniscus tear of right knee: Code(s): S83.241A - Other tear of medial meniscus, current injury, right knee, initial encounter Status: Acute Assessment and Plan: Patient has meniscal tear right knee. She has failed conservative treatment would like to proceed with arthroscopic intervention. I discussed the risks, benefits, limitations, and alternatives in detail. Will proceed per her request
[2025-08-24] VITALS (9 sets, daily range): BP systolic 113–140; BP diastolic 53–79; PULSE 77–99; RESP 12–20; TEMP 36.3–36.9; O2SAT 94–100; BMI 27.3
--- NOTE | 2025-08-24 06:44 | WPDHPUPDATE1 ---
History and Physical Update Update Date/Time: 08/24/25 06:44 History and Physical has been reviewed, including an updated exam of the patient. There are NO changes in the patient's condition. Risks, benefits, and alternatives have been discussed and questions answered. Patient agrees to proceed with procedure. She understands that I can't change the arthritis in her knee. This may be causing some of the pain.
[2025-08-24] MEDS: LACTATED RINGERS 1,000 ML 30 ML IV CONT (08:35)
[2025-08-24] MEDS: KETOROLAC 15 MG/ML VIAL (*BKC) IV PUSH (08:40)
[2025-08-24] MEDS: ACETAMINOPHEN 500 MG TABLET 1000 MG PO (08:40)
--- NOTE | 2025-08-24 10:04 | WPDANESEPPF ---
Anes - Initial Pre Proc Eval Procedure: Operation Date: 08/24/25 10:00 Proposed Procedures p Right Knee Arthroscopy Partial Medial Meniscectomy, Proceed As Indicated - Osman Arthur MD Date/Time: 08/24/25 10:04 Surgeon: Osman Arthur MD Pre Op Diagnosis: rt med meniscal tear Patient Data Age: 79 Gender: F Height: 1.63 m Weight: 72.4 kg Last Vital Signs Temp 36.3 C L 08/24/25 08:10 Pulse 87 08/24/25 08:10 Resp 16 08/24/25 08:10 BP 140/79 08/24/25 08:10 Pulse Ox 98 08/24/25 08:10 O2 Del Method Room Air 08/24/25 08:10 Allergies Allergy/AdvReac Type Severity Reaction Status Date / Time tramadol Allergy Mild Nausea and Verified 08/11/25 15:33 Vomiting hydrocodone (From [place]) AdvReac Nausea and Verified 08/11/25 15:33 Vomiting Home Medications ?Medication ?Instructions ?Recorded ?Confirmed ?Type aspirin 81 mg tablet,delayed 81 mg PO DAILY 10/14/19 08/24/25 History release (Adult Low Dose Aspirin) biotin 1 mg capsule 1 mg PO DAILY 10/14/19 08/24/25 History calcium 600 mg (as 1 cap PO BID 10/14/19 08/24/25 History carbonate)-vitamin D3 12.5 mcg (500 unit) capsule (Calcium with Vit D3) cetirizine 10 mg capsule 10 mg PO DAILY 10/14/19 08/24/25 History garlic 1,000 mg capsule 1,000 mg PO DAILY 10/14/19 08/11/25 History multivitamin 2 tablet PO DAILY 10/14/19 08/11/25 History omeprazole 20 mg capsule,delayed 20 mg PO DAILY #90 caps 02/09/20 08/11/25 Rx release lactobacillus combination no.9 4 4,000 mmu cells PO DAILY 03/25/20 08/11/25 History billion cell capsule (Adult 50 Plus Probiotic) cholecalciferol (vitamin D3) 25 25 mcg PO DAILY 07/11/21 08/24/25 History mcg (1,000 unit) capsule ascorbic acid 100 mg-elderberry 1 tablet PO DAILY 04/16/23 08/24/25 History fruit 50 mg chewable tablet (Airborne (elderberry)) omega 8-elb-cnh-fish oil 100 1 cap PO BID 04/16/23 08/11/25 History mg-160 mg-1,000 mg capsule (Fish Oil) apixaban 5 mg tablet (Eliquis) 5 mg PO BID 07/21/24 08/24/25 History coQ10 (ubiquinol) 200 mg capsule 200 mg PO DAILY 12/30/24 08/24/25 History acetaminophen 500 mg tablet 1,000 mg PO PRN PRN pain 03/02/25 08/24/25 History (Acetaminophen Pain Relief) atorvastatin 20 mg tablet See Rx Instructions .Route 03/04/25 08/24/25 Rx .COMPLEX #90 tabs Glucosamine Chondroitin 1 tablet PO DAILY 03/24/25 08/11/25 History magnesium 200 mg tablet 200 mg PO DAILY 08/11/25 08/11/25 History levothyroxine 50 mcg tablet See Rx Instructions .Route 08/13/25 Rx .COMPLEX #90 tabs hydrocodone 5 mg-acetaminophen 325 1 tablet PO Q6H PRN pain #30 tabs 08/24/25 Rx mg tablet Patient hx anesthesia problems: none Family hx anesthesia problems: none Results Review: All pre-operative results and documents have been reviewed as part of the pre-operative evaluation. [facility] Past Medical History Medical History (Updated 08/24/25 @ 10:05 by Carlos Gtz DO) Atrial fibrillation Acute medial meniscus tear of left knee Pacemaker Biotronik dual-chamber pacemaker implanted 04/18/2023 for symptomatic bradycardia Orthostasis Sinus bradycardia Heart block AV second degree Hiatal hernia Gastritis GERD (gastroesophageal reflux disease) Mixed hyperlipidemia BMI 28.0-28.9,adult Hypothyroidism (acquired) CAD (coronary artery disease) STEMI November 2015 with normal echocardiogram at that time Vitamin D deficiency Osteopenia Breast cancer Left breast Surgical History Surgical History Status post cataract extraction of both eyes with insertion of intraocular lens History of arthroplasty of finger of right hand (06/2021) Thumb Presence of stent in LAD coronary artery (11/2015) H/O hand surgery History of breast augmentation With subsequent removal of the left breast implant 2018 after became deflated H/O left mastectomy Arthritis of carpometacarpal (CMC) joint of right thumb Right thumb CMC arthroplasty July 25, 2021 Family History Family History Sibling Carcinoma of colon Patient's brother is Sudden Sibling Heart disease Father Heart disease Cerebrovascular accident Mother Heart disease Social History Social History Social History: Patient reports that she has been since 1965. Her and her had 3 sons who are all alive and well. 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 She still maintains an active lifestyle and healthy diet. She is a lifelong nonsmoker and does not drink alcohol or use illicit substances. She is independent activities of daily living. Code status: Full code Surrogate decision maker: Smoking status: Never smoker Second hand tobacco smoke exposure: No Alcohol intake: never Substance use: never Substance use type: does not use Current Housing: Decline to Answer Concerned About Future Housing: Decline to Answer Difficulty Paying Gas/Electric Bills: Decline to Answer Difficulty Paying for Meds: Decline to Answer Currently Unemployed: Decline to Answer Education: Decline to Answer Difficulty w/ Childcare or Family Care: Decline to Answer Living arrangements: with family Additional living arrangements comments: Occupation/Education: retired 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 Informed Consent: The patient's anesthetic plan and its attendant risks and benefits were discussed with the patient/family/POA. Questions were solicited and answers provided to the satisfaction of the patient/family/POA.
[2025-08-24] MEDS: ceFAZolin 2 GM in SODIUM CHLORIDE 0.9% IV 50 ML 100 ML IVPB (10:15)
[2025-08-24] MEDS: LIDO 1%/EPINEPHRINE/PF 1:200,000 30 ML VIAL XX (10:33)
--- NOTE | 2025-08-24 10:48 | W.PM.PROC2 ---
Procedure Note - Detailed Date of Procedure 08/24/25 Pre-op Diagnosis RIGHT medial meniscal tear Post-op Diagnosis Same Procedure Performed RIGHT knee arthroscopy with partial meniscectomy Surgeon Osman Arthur MD Anesthesia General Indications Pain, Locking and Catching Description of Procedure Patient brought to operating room # 7. An anesthetic was administered. The knee was sterilely prepped and draped in the usual manner. Standard portals were used. Superior medial portal was used for the outflow cannula, inferior lateral portal was used for the scope, inferior medial portal was used for the instruments. Arthroscopy was performed, the patellar femoral joint degenerative changes. The medial compartment showed a complex tear. Medial compartment also had grade 3 changes. The lateral compartment showed fraying. The ACL was intact. Using baskets and cherelle the meniscal tear was trimmed back to a stable base so the nothing further could be pulled into the joint. Any loose or delaminated fragments were gently trimmed to a stable base. At this point the instruments were withdrawn, sutures placed and patient left the operating room in satisfactory condition. Estimated Blood Loss 20 Drains No Packing No Pathology None sent Complications No immediate complications Condition Stable Disposition PACU [facility] Billing Surgery - Charge Forward: Surgery Billing ([id number] MMT)
--- NOTE | 2025-08-24 12:47 | SUR.PHASEII ---
Patient aware that narcotic pain medication ordered by Dr. Arthur is listed as an allergy. Per patient she does not know of any pain medications that does not cause N/V for her. Patient would like to first use tylenol and ibuprofen to control post-op pain, and will call MD office if this does not work well enough.
== END 2025-08-24 13:05 | disposition home or self-care (01) ==
PROVIDERS: PCP Family Medicine; Visit Provider Orthopaedic Surgery
PROC: (CPT 29870; principal; 2025-08-24 10:00)
DX: S83.231A Complex tear of medial meniscus, current injury, right knee, initial encounter (principal); X58.XXXA Exposure to other specified factors, initial encounter
CPT/HCPCS: 29881; J0690; A9270; J1100; J1885; J2003; J2004; J2405; J2704; J7120

== ENCOUNTER 2025-08-26 14:11 | Outpatient (CLI) | payer MEDICARE, OTHER, SELFPAY ==
--- OUTSIDE RECORDS SUMMARY | 2025-05-13 02:30 | XMS_ITS ---
Author Organization [facility] [place] ([address]) Address [address] [place] [address] Care Team Providers Care Green Building Engineer Name Role Phone Dr. Nafisa Wallis Primary Care Provider Un available Frieda Nixon Unavailable [phone] REASON FOR VISIT SCIT - Traditional Schedule Allergy immunotherapy Medications Medication SIG (Take, Route, Frequency, Duration) Notes Start Date End Date Status SIT (TRADITIONAL) variable per schedule SC per schedule Active Social History Sex Assigned At : Social History Observation Description Sex Assigned At Female Encounters Encounter Location Date Provider Diagnosis [facility] [address] [facility] [address] [place] [address] 05/13/2025 Frieda Nixon Allergic rhinitis du e to pollen J30.1 ; Allergic rhinitis due to animal (cat) (dog) hair and dander J30.81 ; Other allergic rhinitis J30.89 and Other chronic allergic conjunctivitis H10.45 Assessments Encounter Date Diagnosis (ICD Code) Assessment Notes Treatment Notes Treatment Clinical Notes Section Notes 05/13/2025 Allergic rhinitis due to pollen (ICD-10 - J30.1) 05/13/2025 Allergic rhinitis due to animal (cat) (dog) hair and dander (ICD-10 - J30.81) 05/13/2025 Other allergic rhinitis (ICD-10 - J30.89) 05/13/2025 Other chronic allergic conjunctivitis (ICD-10 - H10.45) Plan Of Treatment Medication Medication Name Sig Start Date Stop Date Notes SIT (TRADITIONAL) variable per schedule SC per schedule Next Appt Details Follow Up: 1 Week, Reason: Provider Name:Justyn Chan , 09/02/2025 08:40:00 PM, [address] [facility], [address], [place], [address], Progress Notes * Jennifer RIVERA CDOB:[birth year] (79 yo F)Acc No.[id number]:05/13/2025 SCIT-Aeroallergen Patient: Jennifer NGO Provider: Francis Nixon MD :1945 A ge:79 Y S ex:Female Date:05/13/2025 Address:[address] [place] [address] , [id number] Pcp:Dr. Nafisa Wallis Subjective: * Chief Complaints: * 1 . SCIT - Traditional Schedule Allergy immunotherapy . * HPI: * Introduction: The patient is here for scheduled immunotherapy. Please see the attached specialty form regarding the specifics of the administration of these vaccines. As per our protocol, the must undergo a screening health questionnaire (medication changes, reaction(s) to last immunotherapy dose(s), current health status, ACT (if appropriate), self-injectable epinephrine on patient(?) and peak flow (if appropriate)). Also, the patient must wait in our office for 30 minutes after receiving the vaccine(s). Furthermore, every patient must have an epinephrine pen (self-injectable) with them at the time of administration--and carry if for the following 1.5 hours after they leave our office. The patient must also have taken their antihistamine the day of the injection, preferably 2 hours prior. The consent form for SCIT (subcutaneous immunotherapy) is on file. * Medical History: Objective: * Vitals: Assessment: * Assessment: 1. A llergic rhinitis due to pollen - J30.1 (Primary) 2 . A llergic rhinitis due to animal (cat) (dog) hair and dander - J30.81 3 . O ther allergic rhinitis - J30.89 4 . O ther chronic allergic conjunctivitis - H10.45 Plan: * Treatment: * Procedure Codes: 9 5117 IMMUNOTHERAPY INJECTIONS * Follow Up: 1 Week * Billing Information: * Visit Code: * Procedure Codes: 00490 IMMUNOTHERAPY INJECTIONS. * Electronic signature of Leona Nixon MD on 08/26/2025 at 01:16 PM MALLET AND DIE CUTTER Sign off status: Pending * Provider: Francis Nixon MD Date: 0 05/13/2025 Generated for Ruthie carrion/Stephany/Scotitting on: 1 01:16 PM MALLET AND DIE CUTTER History and Physical Notes * HPI (History of Present Illness) Category Sub-Category Detail Notes Category Not es *Introduction The patient is here for scheduled immunotherapy. Please see the attached specialty form regarding the specifics of the administration of these vaccines. As per our protocol, the must undergo a screening health questionnaire (medication changes, reaction(s) to last immunotherapy dose(s), current health status, ACT (if appropriate), self-injectable epinephrine on patient(?) and peak flow (if appropriate)). Also, the patient must wait in our office for 30 minutes after receiving the vaccine(s). Furthermore, every patient must have an epinephrine pen (self-injectable) with them at the time of administration--and carry if for the following 1.5 hours after they leave our office. The patient must also have taken their antihistamine the day of the injection, preferably 2 hours prior. The consent form for SCIT (subcutaneous immunotherapy) is on file.
--- OUTSIDE RECORDS SUMMARY | 2025-06-24 11:30 | XMS_ITS ---
Author Organization [facility] - [facility] [place] ([address]) Address [address] [place] [address] Care Team Providers Care Stave Grader Name Role Phone Dr. Nafisa Wallis Primary Care Provider Un available Frieda Nixon Unavailable [phone] REASON FOR VISIT SCIT (Aeroallergen) Social History Sex Assigned At : Social History Observation Description Sex Assigned At Female Encounters Encounter Location Date Provider Diagnosis [facility] [address] [place] [address] 06/24/2025 Frieda Nixon Plan Of Treatment Next Appt Details Provider Name:Justyn Chan , 09/02/2025 08:40:00 PM, [facility], [address], [place], [address], Progress Notes * Jennifer RIVERA CDOB:[birth year] (79 yo F)Acc No.[id number]:06/24/2025 SCIT-Aeroallergen Patient: Jennifer NGO Provider: Francis Nixon MD :1945 A ge:79 Y S ex:Female Date:06/24/2025 Address:[address] [id number] Pcp:Dr. Nafisa Wallis Subjective: * Chief Complaints: * 1 . SCIT (Aeroallergen). * Medical History: Objective: * Vitals: Assessment: Plan: * Treatment: * Billing Information: * Visit Code: * Procedure Codes: * Electronic signature of Leona Nixon MD on 08/26/2025 at 01:16 PM ASSESSMENT SERVICES MANAGER Sign off status: Pending * Provider: Francis Nixon MD Date: 1 Generated for Ruthie carrion/Stephany/Bob on: 01:16 PM ASSESSMENT SERVICES MANAGER
--- NOTE | ~2025-08-26 | US_ITS ---
EXAMINATION:US venous doppler LE RT INDICATION:Right lower extremity pain and swelling TECHNIQUE: Multiple grayscale, color flow and Doppler images of the right lower extremity deep venous systems were obtained and reviewed. COMPARISON:No prior studies for comparison. FINDINGS: The common femoral, superficial femoral and popliteal veins demonstrate normal respiratory variation, augmentation and compressibility. Color flow is also seen within the posterior tibial, peroneal, greater saphenous and profunda veins. IMPRESSION: 1: No lower extremity deep venous thrombosis. Reviewed, dictated and finalized at location O. ICAL INFORMATION SYSTEMS DIRECTOR
--- OUTSIDE RECORDS SUMMARY | 2025-08-26 13:16 | XMS_ITS | Clinical Summary ---
Author Organization [facility] Address [address] [place] [id number] Care Team Providers Care Retail Asset Protection Specialist Name Role Phone Nafisa Quinn MD Primary Care Provider [phone] Social History Tobacco Use Types Packs/Day Years [...] 72.6 kg (160 lb) 07/09/2018 1:00 PM SAMPLE TAKER OPERATOR Height 162.6 cm (5' 4) 07/09/2018 1:00 PM SAMPLE TAKER OPERATOR Body Mass Index 27.46 07/09/2018 1:00 PM SAMPLE TAKER OPERATOR Plan of Treatment Health Maintenance Due Date [...] age to complete this topic [place] [address] MEDICARE [facility] Care Teams Retail Asset Protection Specialist Relationship Specialty Start Date End Date Nafisa Quinn MD [id number] [facility] [address] [place] [address] PCP - General 08/04/15
--- OUTSIDE RECORDS SUMMARY | 2025-08-26 13:16 | XMS_ITS | Patient Health Record ---
Author Organization [facility] [place] ([address]) Address [address] [place] [address] Care Team Providers Care Grants Officer Name Role Phone Dr. Nafisa Wallis Primary Care Provider Un available Frieda Nixon Unavailable [phone] Allergies No Known Allergies Reason For Referral No Information Medications Medication SIG (Take, Route, Frequency, Duration) Notes Start Date End Date Status Fiber Choice 1.5 GM 2 tab(s) chewed 3 times a day Active SIT (TRADITIONAL) variable per schedule SC per schedule; Duration: to be determined Active EPINEPHRINE AUTO-INJECTOR 0.3 mg as directed intramuscularly once; Duration: 1 days Active Eliquis 5 MG Oral; Duration: 90 Days Active PAZEO 0.7% 1 gtt in each affected eye once a day Active Azelastine HCl 137 MCG/SPRAY 2 spray(s) intranasally 2 times a day; Duration: 30 day(s) Active EPIPEN 2-PARKER 0.3 mg 0.3 mg intramuscularly once; Duration: 1 dose(s) Active CETIRIZINE HYDROCHLORIDE 10 mg 1 tab(s) orally once a day Active Triamcinolone Acetonide 0.1 % 1 akash applied topically 2 times a day, prn; Duration: 30 day(s) Active Garlic ORALLY DAILY *Please review and pick correct strength-formulat ion from Medispan options. If intended option is not shown, discontinue and re-order from Quick Search* Active ZyrTEC Allergy 10 MG 1 tab(s) orally onc e a day Active Cetirizine HCl 10 MG 1 tab(s) orally onc e a day 12/13/2021 Active EpiPen 2-Parker 0.3 MG/0.3ML 0.3 mg intramuscularly once; Duration: 1 dose(s) Active Glucosamine Sulfate 500 MG 1 tab(s) orally 3 times a day Active SIT (TRADITIONAL) variable per schedule SC per schedule Active Fosamax 70 MG 1 tab(s) orally once a week Active Coenzyme Q10 300 MG 1 cap(s) orally once a day Active Levothyroxine Sodium 50 MCG 1 tab(s) orally once a day Active Pataday 0.2 % 1 gtt in each affected eye once a day; Duration: 10 day(s) Active Pravastatin Sodium 10 MG 1 tab(s) orally once a day (at bedtime) Active PriLOSEC OTC 20 MG 1 tab(s) orally once a day Active Fish Oil 1200 MG 1 cap(s) orally 3 times a day Active Aspirin 81 MG 1 tab(s) orally once a day Active Vitamin D3 50 MCG (2000 UT) 1 tab(s) orally once a day Active Biotin 1000 MCG 1 tab(s) orally once a day Active Atorvastatin Calcium 20 MG 1 tab(s) orally once a day Active Immunizations Vaccine Route Administration [...] allergic conjunctivitis (H10.45) Active confirmed Vital Signs Blood pressure diastolic 76 mm Hg 06/23/2025 Oximetry 99 % 06/23/2025 Height 64 in 06/23/2025 Blood pressure systolic 134 mm Hg 06/23/2025 Weight 159.6 lbs 06/23/2025 BMI 27.39 kg/m2 06/23/2025 Encounters Encounter Location Date Provider Diagnosis [facility] [address] [address] 08/18/2025 Frieda Nixon Allergic rhinitis du e to pollen J30.1 ; Allergic rhinitis due to animal (cat) (dog) hair and dander J30.81 ; Other allergic rhinitis J30.89 and Other chronic allergic conjunctivitis H10.45 [facility] [address] [place] [phone] 08/05/2025 Frieda Nixon Allergic rhinitis du e to pollen J30.1 ; Allergic rhinitis due to animal (cat) (dog) hair and dander J30.81 ; Other allergic rhinitis J30.89 and Other chronic allergic conjunctivitis H10.45 [facility] [address] [place] [phone] 07/22/2025 Frieda Nixon Allergic rhinitis du e to pollen J30.1 ; Allergic rhinitis due to animal (cat) (dog) hair and dander J30.81 ; Other allergic rhinitis J30.89 and Other chronic allergic conjunctivitis H10.45 [facility] [address] [place], [place] [address] [address] [place] [phone] 07/07/2025 Friedamaria del rosario Nixon Allergic rhinitis du e to pollen J30.1 ; Allergic rhinitis due to animal (cat) (dog) hair and dander J30.81 ; Other allergic rhinitis J30.89 and Other chronic allergic conjunctivitis H10.45 [facility] [address] [place], [place] [address] [address] [place] [phone] 06/03/2025 Friedamaria del rosario Nixon Allergic rhinitis du e to pollen J30.1 ; Allergic rhinitis due to animal (cat) (dog) hair and dander J30.81 ; Other allergic rhinitis J30.89 and Other chronic allergic conjunctivitis H10.45 [facility] [address] [place] [address] [employer] [address] [address] 05/20/2025 Friedamaria del rosario Nixon Allergic rhinitis du e to pollen J30.1 ; Allergic rhinitis due to animal (cat) (dog) hair and dander J30.81 ; Other allergic rhinitis J30.89 and Other chronic allergic conjunctivitis H10.45 [facility] [address] [place] [address] [employer] [address] [place] [phone] 04/29/2025 Friedamaria del rosario Nixon Allergic rhinitis du e to pollen J30.1 ; Allergic rhinitis due to animal (cat) (dog) hair and dander J30.81 ; Other allergic rhinitis J30.89 and Other chronic allergic conjunctivitis H10.45 [facility] [address] [place], [place] [address] [address] [place] [phone] 04/15/2025 Friedamaria del rosario Steinm Allergic rhinitis du e to pollen J30.1 ; Allergic rhinitis due to animal (cat) (dog) hair and dander J30.81 ; Other allergic rhinitis J30.89 and Other chronic allergic conjunctivitis H10.45 [facility] [address] [place], [place] [address] [address] [place] [phone] 04/01/2025 Friedamaria del rosario Steinm Allergic rhinitis du e to pollen J30.1 ; Allergic rhinitis due to animal (cat) (dog) hair and dander J30.81 ; Other allergic rhinitis J30.89 and Other chronic allergic conjunctivitis H10.45 [facility] [address] [place] [address] [address] [address] 03/18/2025 Friedamaria del rosario Steinm Allergic rhinitis du e to pollen J30.1 ; Allergic rhinitis due to animal (cat) (dog) hair and dander J30.81 ; Other allergic rhinitis J30.89 and Other chronic allergic conjunctivitis H10.45 [facility] [address] [place], [place] [address] [address] [address] 03/04/2025 Frieda Hussain Allergic rhinitis du e to pollen J30.1 ; Allergic rhinitis due to animal (cat) (dog) hair and dander J30.81 ; Other allergic rhinitis J30.89 and Other chronic allergic conjunctivitis H10.45 [facility] [address] [place] [address] [address] [address] 02/18/2025 Friedamaria del rosario Steinm Allergic rhinitis du e to pollen J30.1 ; Allergic rhinitis due to animal (cat) (dog) hair and dander J30.81 ; Other allergic rhinitis J30.89 and Other chronic allergic conjunctivitis H10.45 [facility] [address] [place] [address] [address] [address] 02/04/2025 Friedamaria del rosario Steinm Allergic rhinitis du e to pollen J30.1 ; Allergic rhinitis due to animal (cat) (dog) hair and dander J30.81 ; Other allergic rhinitis J30.89 and Other chronic allergic conjunctivitis H10.45 [facility] [address] [place] [address] [address] [address] 01/21/2025 Frieda Hussain Allergic rhinitis du e to pollen J30.1 ; Allergic rhinitis due to animal (cat) (dog) hair and dander J30.81 ; Other allergic rhinitis J30.89 and Other chronic allergic conjunctivitis H10.45 [facility] [address] [place], [place] [address] [address] [place] [phone] 01/07/2025 Frieda Hussain Allergic rhinitis du e to pollen J30.1 ; Allergic rhinitis due to animal (cat) (dog) hair and dander J30.81 ; Other allergic rhinitis J30.89 and Other chronic allergic conjunctivitis H10.45 [facility] [address] [place], [place] [address] [address] [phone] 12/24/2024 Friedamaria del rosario Steinm Allergic rhinitis du e to pollen J30.1 ; Allergic rhinitis due to animal (cat) (dog) hair and dander J30.81 ; Other allergic rhinitis J30.89 and Other chronic allergic conjunctivitis H10.45 [facility] [address] [place], [place] [address] [address] [address] 12/10/2024 Frieda Hussain Allergic rhinitis du e to pollen J30.1 ; Allergic rhinitis due to animal (cat) (dog) hair and dander J30.81 ; Other allergic rhinitis J30.89 and Other chronic allergic conjunctivitis H10.45 [facility] [address] [place] [address] [address] [address] 11/26/2024 Friedamaria del rosario Steinm Allergic rhinitis du e to pollen J30.1 ; Allergic rhinitis due to animal (cat) (dog) hair and dander J30.81 ; Other allergic rhinitis J30.89 and Other chronic allergic conjunctivitis H10.45 [facility] [address] [place], [place] [address] [address] [address] 11/12/2024 Friedamaria del rosario Steinm Allergic rhinitis du e to pollen J30.1 ; Allergic rhinitis due to animal (cat) (dog) hair and dander J30.81 ; Other allergic rhinitis J30.89 and Other chronic allergic conjunctivitis H10.45 [facility] [address] [place], [place] [address] [address] [address] 10/30/2024 Frieda Hussain Allergic rhinitis du e to pollen J30.1 ; Allergic rhinitis due to animal (cat) (dog) hair and dander J30.81 ; Other allergic rhinitis J30.89 and Other chronic allergic conjunctivitis H10.45 [facility] [address] [place], [place] [address] [address] [place] [phone] 10/16/2024 Frieda Hussain Allergic rhinitis du e to pollen J30.1 ; Allergic rhinitis due to animal (cat) (dog) hair and dander J30.81 ; Other allergic rhinitis J30.89 and Other chronic allergic conjunctivitis H10.[address] [phone] 10/08/2024 Frieda Nixon Allergic rhinitis du e to pollen J30.1 ; Allergic rhinitis due to animal (cat) (dog) hair and dander J30.81 ; Other allergic rhinitis J30.89 and Other chronic allergic conjunctivitis H10.[address] [address] 10/01/2024 Frieda Nixon Allergic rhinitis du e to pollen J30.1 ; Allergic rhinitis due to animal (cat) (dog) hair and dander J30.81 ; Other allergic rhinitis J30.89 and Other chronic allergic conjunctivitis H10.[address] [address] 09/17/2024 Frieda Nixon Allergic rhinitis du e to pollen J30.1 ; Allergic rhinitis due to animal (cat) (dog) hair and dander J30.81 ; Other allergic rhinitis J30.89 and Other chronic allergic conjunctivitis H10.[address] [address] 09/04/2024 Frieda Nixon Allergic rhinitis du e to pollen J30.1 ; Allergic rhinitis due to animal (cat) (dog) hair and dander J30.81 ; Other allergic rhinitis J30.89 and Other chronic allergic conjunctivitis H10.[address] [address] 06/23/2025 Frieda Nixon Allergic rhinitis du e to pollen J30.1 ; Other chronic allergic conjunctivitis H10.45 ; Allergic rhinitis due to animal (cat) (dog) hair and dander J30.81 and Other allergic rhinitis J30.[address] [address] 04/22/2025 Frieda Nixon Assessments Encounter Date Diagnosis (ICD Code) Assessment Notes Treatment Notes Treatment Clinical Notes Section Notes 10/30/2024 Allergic rhinitis due to pollen (ICD-10 - J30.1) 12/24/2024 Allergic rhinitis due to pollen (ICD-10 - J30.1) 04/29/2025 Allergic rhinitis due to pollen (ICD-10 - J30.1) 05/20/2025 Allergic rhinitis due to pollen (ICD-10 - J30.1) 08/05/2025 Allergic rhinitis due to pollen (ICD-10 - J30.1) 08/18/2025 Allergic rhinitis due to pollen (ICD-10 - [...] discontinuing. Increase shot frequency during peak seasons. 06/03/2025 Allergic rhinitis due to pollen (ICD-10 [...] rhinitis due to pollen (ICD-10 - J30.1) 07/07/2025 Allergic rhinitis due to pollen (ICD-10 - J30.1) 07/07/2025 Allergic rhinitis due to animal (cat) [...] (dog) hair and dander (ICD-10 - J30.81) 06/03/2025 Allergic rhinitis due to animal (cat) (dog) hair and dander (ICD-10 - J30.81) 06/23/2025 Allergic rhinitis due to animal (cat) (dog) hair and dander (ICD-10 - J30.81) Recommend medications, allergen avoidance measures, and SCIT as above 07/22/2025 Allergic rhinitis due to animal (cat) (dog) hair and dander (ICD-10 - J30.81) 08/18/2025 Allergic rhinitis due to animal (cat) (dog) hair and dander (ICD-10 - J30.81) 08/05/2025 Allergic rhinitis due to animal (cat) (dog) hair and dander (ICD-10 - J30.81) 05/20/2025 Allergic rhinitis due to animal (cat) (dog) hair and dander (ICD-10 - J30.81) 04/29/2025 Allergic rhinitis due to animal (cat) (dog) hair and dander (ICD-10 - J30.81) 12/24/2024 Allergic rhinitis due to animal (cat) (dog) hair and dander (ICD-10 - J30.81) 10/30/2024 Allergic rhinitis due to animal (cat) (dog) hair and dander (ICD-10 - J30.81) 10/30/2024 Other allergic rhinitis (ICD-10 - J30.89) 12/24/2024 Other allergic rhinitis (ICD-10 - J30.89) 04/29/2025 Other allergic rhinitis (ICD-10 - J30.89) 05/20/2025 Other allergic rhinitis (ICD-10 - J30.89) 08/05/2025 Other allergic rhinitis (ICD-10 - J30.89) 08/18/2025 Other allergic rhinitis (ICD-10 - J30.89) 07/22/2025 Other allergic rhinitis (ICD-10 - J30.89) 06/23/2025 Other allergic rhinitis (ICD-10 - J30.89) Recommend medications, allergen avoidance measures, and SCIT as above 06/03/2025 Other allergic rhinitis (ICD-10 - J30.89) 04/15/2025 Other allergic rhinitis (ICD-10 - J30.89) 04/01/2025 Other allergic rhinitis (ICD-10 - J30.89) 03/18/2025 Other allergic rhinitis (ICD-10 - J30.89) 03/04/2025 Other allergic rhinitis (ICD-10 - J30.89) 02/18/2025 Other allergic rhinitis (ICD-10 - J30.89) 02/04/2025 Other allergic rhinitis (ICD-10 - J30.89) 01/21/2025 Other allergic rhinitis (ICD-10 - J30.89) 01/07/2025 Other allergic rhinitis (ICD-10 - J30.89) 12/10/2024 Other allergic rhinitis (ICD-10 - J30.89) 11/26/2024 Other allergic rhinitis (ICD-10 - J30.89) 11/12/2024 Other allergic rhinitis (ICD-10 - J30.89) 10/16/2024 Other allergic rhinitis (ICD-10 - J30.89) 10/08/2024 Other allergic rhinitis (ICD-10 - J30.89) 10/01/2024 Other allergic rhinitis (ICD-10 - J30.89) 09/17/2024 Other allergic rhinitis (ICD-10 - J30.89) 09/04/2024 Other allergic rhinitis (ICD-10 - J30.89) 07/07/2025 Other allergic rhinitis (ICD-10 - J30.89) 09/04/2024 Other chronic allergic conjunctivitis (ICD-10 - [...] Other chronic allergic conjunctivitis (ICD-10 - H10.45) 07/22/2025 Other chronic allergic conjunctivitis (ICD-10 - H10.45) 08/18/2025 Other chronic allergic conjunctivitis (ICD-10 - H10.45) 08/05/2025 Other chronic allergic conjunctivitis (ICD-10 - H10.45) 05/20/2025 Other chronic allergic conjunctivitis (ICD-10 - H10.45) 04/29/2025 Other chronic allergic conjunctivitis (ICD-10 - H10.45) 12/24/2024 Other chronic allergic conjunctivitis (ICD-10 - H10.45) 10/30/2024 Other chronic allergic conjunctivitis (ICD-10 - H10.45) 06/23/2025 Other Plan Of Treatment Next Appt Details Provider Name:Justyn Chan , 09/02/2025 08:40:00 PM, [address] [facility], [address], [place], [address], Insurance Providers Payer Name Payer Address Payer Phone Subscriber Number Group Number Insured Name Patient Relationship to Insured Coverage Start Date Coverage End Date [employer] (Medicare) Attention Claims [address] [place] [address] [id number] Jennifer Rivera Self - [place] [address] [id number] Jennifer Rivera Self - patient is the [...]
--- OUTSIDE RECORDS SUMMARY | 2025-08-26 13:16 | XMS_ITS | Clinical Summary ---
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
--- OUTSIDE RECORDS SUMMARY | 2025-08-26 13:17 | XMS_ITS | Clinical Summary ---
Author Organization [facility] [address] Address [address] [place] [address] Care Team Providers Care Manager Production Name Role Phone aNfisa Quinn MD Primary Care Provider Allergies Active [...] mg capsule Take by mouth. Activ e cetirizine (ZyrTEC) 10 mg tablet Take 1 tablet (10 mg total) by mouth daily Active atorvastatin (LIPITOR) 20 mg tablet Take 1 tablet (20 mg total) by mouth daily Active biotin 1 mg tablet Take 1 tablet (1,000 mcg total) by mouth daily Active levothyroxine (SYNTHROID) 50 mcg tablet Take 1 tablet (50 mcg total) by mouth historiographer before breakfast Active acidophilus-pec tin, citrus 100 million cell-10 mg capsule Take by mouth Activ e azelastine (ASTELIN) 137 mcg (0.1 %) nasal spray Administer 1 spray into each nostril 2 (two) times a day Active predniSONE (DELTASONE) 10 mg tablet 1 tablet (10 mg) 2 (two) times a day Active Eliquis 5 mg tablet Take 1 tablet by mouth twice daily 180 tablet 5 Active Active Problems Problem Noted Date Diagnosed Date Cardiac pacemaker in situ 04/24/2023 Overview (04/26/2023): Biotronik Edora Dual Pacemaker. Dx; Symptomatic Bradycardia. DOI 04/18/2023- [employer]. Power. [employer]ik remote monitoring. Coronary artery disease invo lving [place] coronary artery of [place] heart without angina pectoris 08/08/2017 History of [...] Department Care Team Description 07/14/2025 7:15 AM MOLASSES COLORING OPERATOR Ancillary Procedure [facility] [address] [place] [phone] Sinus node dysfunction (HCC) [I49.5] (Primary [...] on file Legal Sex Female 12:23 PM MOLASSES COLORING OPERATOR Gender Identity Female 02/02/2023 12:55 PM CDT Sexual Orientation Straight 02/02/2023 12 :55 PM CDT Last Filed Vital Signs Vital Sign Reading Time Taken Comments Blood Pressure 134/90 04/24/2025 8:04 AM CDT Pulse 100 04/24/2025 8:04 AM CDT Temperature 36.7 C (98.1 F) 07/01/2019 12:28 PM MOLASSES COLORING OPERATOR Respiratory Rate 18 04/24/2025 8:04 AM CDT [...] CHECK - REMOTE Routine 07/15/2025 9:39 AM MOLASSES COLORING OPERATOR Cardiac pacemaker in situ Symptomatic bradycardia from Last 3 Months Results * DEVICE CHECK - REMOTE (07/15/2025 9:39 AM MOLASSES COLORING OPERATOR) Anatomical Region Laterality Modality Other Narrative 07/17/2025 1:22 PM MOLASSES COLORING OPERATOR Biotronik Edora Dual Pacemaker. Dx; Sinus Node Dysfunction, Symptomatic Bradycardia, PAF. DOI 04/18/2023-[facility]. Tono. [employer]ik remote monitoring. Routine DDD Pacemaker Remote. Transmission attached. Battery status-Ok, 80% remaining to NED. Stable lead impedances, pacing and sensing thresholds. Presenting rhythm: AP-VS. AP-91 %, SUPERVISOR COLD ROLLING-1%. No AT/AF episodes noted. No Ventricular tachy arrhythmias detected. Medication: Eliquis, ASA, Lipitor. Office pacemaker f/u 09/23/2025. Follow up: Bi[employer]ronik remote 6 months. Andie Lam RN Terrell Ashton MD [facility] PROC EDURES Final Result from Last [address] [place] [address] [place] [address] MEDICARE [place] MEDICARE [place] MEDICARE [employer] [place] [address] Care Teams Manager Production Relationship Specialty Start Date End Date Nafisa Quinn MD [address] [facility] [address] [place] [address] PCP - General Family Medicine 02/07/18
--- OUTSIDE RECORDS SUMMARY | 2025-08-26 13:17 | XMS_ITS | Clinical Summary ---
Author Organization [facility] Address [address] [place] [address] Care Team Providers Care Flame Annealing Machine Setter Name Role Phone Unavailable Primary Care Provider Unavailabl e Source Comments [facility],non-owned Affiliates and Associated Physician Practices is amultiple site organization consisting of ambulatory clinics and hospital sitesin [place], [place], [place] and [place]. This disclosure is being madepursuant to the Care Everywhere program and may not contain all information available regarding this patient. Last updated 18.[facility] [id number] Social History Tobacco Use Types Packs/Day Years Used Date Smoking Tobacco: Never Assessed Comments Unknown Sex and Gender Information Value Date Recorded Sex Assigned at Not on file Legal Sex Female 5:45 PM ENDOCRINOLOGY NURSE Gender Identity Not on file Sexual Orientation [...] age to complete this topic Insurance [place] [address] MEDICARE [facility] [place] [address]
--- OUTSIDE RECORDS SUMMARY | 2025-08-26 13:17 | XMS_ITS | Encounter Summary ---
Author Organization [facility] Address [address] [place] [address] Care Team Providers Care Appliquer Zigzag Name Role Phone Unavailable Primary Care Provider Unavailabl e Encounter Details Date Type Department Care Team (Late st Contact Info) Description 04/14/2024 Lab Requisition [facility] - DermPath Lab [address] [place] [id number] Dileep Leach MD [address] [place] [address] Social History Tobacco Use Types Packs/Day Years Used Date Smoking Tobacco: Never Assessed Comments Unknown Sex and Gender Information Value Date Recorded Sex Assigned at Not on file Legal Sex Female 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 Gender Identity Not on file Sexual Orientation Not on file documented as of this encounter Plan of Treatment Not on file documented as of this encounter Procedures Procedure Name Priority Date/Time Associated Diagnosis Comments DERMATOPATHOLOGY Routine 04/09/2024 12:0 0 AM CDT documented in this encounter Results * DERMATOPATHOLOGY (04/09/2024 12:00 AM CDT) Case Report Dermatopathology Report Case: [id number] Authorizing Provider: Dileep Leach MD Collected: 04/09/2024 12:00 AM Ordering Location: [facility] - Received: 04/14/2024 09:26 [...] characteristic determined by the Dermatopathology Laboratory at [facility], directed by Dr. Twan Camejo. These tests need not be, and therefore are not, approved by the [place] Food and Drug Administration. The tests are used for clinical purposes. Billing Codes Specimen Charges Stain Charges 58039 1 4 2:36 PM CDT DERMATOPATHOLOGY LABORATORY Embedded Images 4 2:36 PM CDT DERMATOPATHOLOGY LABORATORY Pathology/Cytolog y TISSUE SPECIMEN FROM SKIN / Unknown 04/09/2024 04/14/2024 9:26 AM CDT us Dileep Leach MD LAB - PATHOLOGY/CYTOLOGY ORD ERABLES Final Result DERMATOPATHOLOGY LABORATORY [facility] - Department of Dermatology [address], [address] [phone] documented in this encounter Visit Diagnoses Not on filedocumented in this encounter
--- OUTSIDE RECORDS SUMMARY | 2025-08-26 14:14 | XMS_ITS | Clinical Summary ---
Author Organization [facility] Address [address] [place] [address] Phone Care Team Providers Care Seconds Handler Name Role Phone Unavailable Primary Care Provider Unavailabl e Social History Tobacco Use Types Packs/Day Years Used Date Smoking Tobacco: Never Assessed Comments Unknown Sex and Gender Information Value Date Recorded Sex Assigned at Not on file Legal Sex Female 10:00 AM DOCUMENTATION LEAD Gender Identity Not on file Sexual Orientation [...]
--- OUTSIDE RECORDS SUMMARY | 2025-08-26 14:14 | XMS_ITS | Clinical Summary ---
Author Organization [facility] Address [address] [place] [address] Care Team Providers Care Pets Salesperson Name Role Phone Unavailable Primary Care Provider Unavailabl e Source Comments [facility],non-owned Affiliates and Associated Physician Practices is amultiple site organization consisting of ambulatory clinics and hospital sitesin [place], [place], [place] and [place]. This disclosure is being madepursuant to the Care Everywhere program and may not contain all information available regarding this patient. Last updated 18.[facility] [employer] Social History Tobacco Use Types Packs/Day Years Used Date Smoking Tobacco: Never Assessed Comments Unknown Sex and Gender Information Value Date Recorded Sex Assigned at Not on file Legal Sex Female 5:45 PM MOLD CHANGER Gender Identity Not on file Sexual Orientation [...] age to complete this topic [place] [address] MEDICARE [facility] [place] [phone]
--- OUTSIDE RECORDS SUMMARY | 2025-08-26 14:14 | XMS_ITS | Clinical Summary ---
Author Organization [facility] [address] Address [address] [place] [address] Care Team Providers Care Criminal Attorney Name Role Phone Nafisa Quinn MD Primary [...] 1 tablet (50 mcg total) by mouth director of early childhood before breakfast Active acidophilus-pec tin, citrus 100 [...] remote monitoring. Coronary artery disease invo lving [place] coronary artery of [place] heart without angina pectoris 08/08/2017 History of coronary artery stent placement 08/08 Primary hypothyroidism 05/02/2017 Nontoxic multinodular goiter 05/02/2017 Candidiasis of vulva and vagina 09/19/2006 Chronic maxillary sinusitis 09/19/2006 Malignant neoplasm of upper- outer quadrant of left breast in female, estrogen receptor positive 09/28/1993 Cancer Staging:Pathologic stage from 09/28/1993: pT2, pN0, cM0, G2, ER+, CA+, HER2: Unknown - Signed by Juan Quinn MD on 01/08/2019 Clinical: Unsigned Encounters Date Type Department Care Team Description 07/14/2025 7:15 AM PUPPET MAKER Ancillary Procedure [facility] Cardiology [address] [place] [phone] Sinus node dysfunction (HCC) [I49.5] (Primary [...] on file Legal Sex Female 12:23 PM PUPPET MAKER Gender Identity Female 02/02/2023 12:55 PM CDT Sexual Orientation Straight 02/02/2023 12 :55 PM CDT Last Filed Vital Signs Vital Sign Reading Time Taken Comments Blood Pressure 134/90 04/24/2025 8:04 AM CDT Pulse 100 04/24/2025 8:04 AM CDT Temperature 36.7 C (98.1 F) 07/01/2019 12:28 PM PUPPET MAKER Respiratory Rate 18 04/24/2025 8:04 AM CDT [...] CHECK - REMOTE Routine 07/15/2025 9:39 AM PUPPET MAKER Cardiac pacemaker in situ Symptomatic bradycardia from Last 3 Months Results * DEVICE CHECK - REMOTE (07/15/2025 9:39 AM PUPPET MAKER) Anatomical Region Laterality Modality Other Narrative 07/17/2025 1:22 PM PUPPET MAKER Biotronik Edora Dual Pacemaker. Dx; Sinus Node Dysfunction, Symptomatic Bradycardia, PAF. DOI 04/18/2023-[facility] Tono. [employer] remote monitoring. Routine DDD Pacemaker Remote. Transmission attached. Battery status-Ok, 80% remaining to NED. Stable lead impedances, pacing and sensing thresholds. Presenting rhythm: AP-VS. AP-91 %, PACU NURSE-1%. No AT/AF episodes noted. No Ventricular tachy arrhythmias detected. Medication: Eliquis, ASA, Lipitor. Office pacemaker f/u 09/23/2025. Follow up: Bi[employer]ik remote 6 months. Andie Lam RN Terrell Ashton MD [facility] CARDIAC SERVICES PROC EDURES Final Result from Last [address] [place] [address] MEDICARE [employer] [place] MEDICARE [employer] [place] MEDICARE [employer] [place] [address] Care Teams Criminal Attorney Relationship Specialty Start Date End Date Nafisa Quinn MD [address] [facility] [address] [place] [address] PCP - General Family Medicine 02/07/18
--- OUTSIDE RECORDS SUMMARY | 2025-08-26 14:14 | XMS_ITS | Encounter Summary ---
Author Organization [facility] Address [address] [place] [address] Care Team Providers Care Grid Casting Machine Operator Helper Name Role Phone Unavailable Primary Care Provider Unavailabl e Encounter Details Date Type Department Care Team (Late st Contact Info) Description 04/14/[address] [facility] - DermPath Lab [address] [place] [id number] Dileep Leach MD [address] [place] [address] Social History Tobacco Use Types Packs/Day Years Used Date Smoking Tobacco: Never Assessed Comments Unknown Sex and Gender Information Value Date Recorded Sex Assigned at Not on file Legal Sex Female 5:45 PM BOLOGNA LACER Gender Identity Not on file Sexual Orientation Not on file documented as of this encounter Plan of Treatment Not on file documented as of this encounter Procedures Procedure Name Priority Date/Time Associated Diagnosis Comments DERMATOPATHOLOGY Routine 04/09/2024 12:0 0 AM CDT documented in this encounter Results * DERMATOPATHOLOGY (04/09/2024 12:00 AM CDT) Case Report Dermatopathology Report Case: [id number] Authorizing Provider: Dileep Leach MD Collected: 04/09/2024 12:00 AM Ordering Location: [facility] - Received: 04/14/2024 09:26 AM [...] characteristic determined by the Dermatopathology Laboratory at [facility], directed by Dr. Twan Camejo. These tests need not be, and therefore are not, approved by the [place] Food and Drug Administration. The tests are used for clinical purposes. Billing Codes Specimen Charges Stain Charges 56576 1 4 2:36 PM CDT DERMATOPATHOLOGY LABORATORY Embedded Images 4 2:36 PM CDT DERMATOPATHOLOGY LABORATORY Pathology/Cytolog y TISSUE SPECIMEN FROM SKIN / Unknown 04/09/2024 04/14/2024 9:26 AM CDT us Dileep Leach MD LAB - PATHOLOGY/CYTOLOGY ORD ERABLES Final Result DERMATOPATHOLOGY LABORATORY [facility] - Department of Dermatology [address], [address] [phone] documented in this encounter Visit Diagnoses Not on filedocumented in this encounter
--- OUTSIDE RECORDS SUMMARY | 2025-08-26 14:14 | XMS_ITS | Clinical Summary ---
Author Organization [facility] Address [address] [place] [address] Care Team Providers Care Power Press Supervisor Name Role Phone Nafisa Quinn MD Primary Care Provider [phone] Social History Tobacco Use Types Packs/Day Years [...] 72.6 kg (160 lb) 07/09/2018 1:00 PM SENIOR BIOSTATISTICIAN/GROUP LEADER Height 162.6 cm (5' 4) 07/09/2018 1:00 PM SENIOR BIOSTATISTICIAN/GROUP LEADER Body Mass Index 27.46 07/09/2018 1:00 PM SENIOR BIOSTATISTICIAN/GROUP LEADER Plan of Treatment Health Maintenance Due Date [...] age to complete [place] [address] MEDICARE [facility] Care Teams Power Press Supervisor Relationship Specialty Start Date End Date Nafisa Quinn MD [address] [place] [address] PCP - General 08/04/15
[2025-08-26 15:10] LABS: Color Synovial Fluid Red (Colorless); Lymphocytes Synovial Fluid 14 %; Macrophages Synovial Fluid 4 %; Neutrophils Synovial Fluid 82 % (0-25); Nucleated Cell Synovial Fluid 1989 /uL (0-200); RBC Synovial Fluid 536000 /uL (0-0); Source Synovial Fluid Rt Knee Syn Fluid
== END 2025-08-26 14:12 | disposition home or self-care (01) ==
PROVIDERS: PCP Family Medicine; Visit Provider Orthopaedic Surgery
DX: M79.604 Pain in right leg (principal); M79.89 Other specified soft tissue disorders
CPT/HCPCS: 89051; 89060; 93971